=== PATIENT | female | born 1950 | race Caucasian/White ===

== ENCOUNTER 2020-01-09 16:42 | Inpatient (IN) | payer MEDICARE, OTHER ==
[~2020-01-09] VITALS: Ht 162.6 cm; Wt 52.6 kg
[2020-01-09] MEDS ORDERED: Tetanus/Diptheria/Pertussis IM ONE (16:45)
[2020-01-09] MEDS ORDERED: Acetaminophen 500mg (ES) tab ORAL ONE (16:45)
--- NOTE | 2020-01-09 16:56 | Emergency Room Report ---
History of Present Illness General Chief Complaint: Multiple Trauma/Fall Source: Patient, EMS Present Illness HPI 70-year-old female history of hypertension history of thoracic surgery presents with mechanical fall patient was stepping onto an uber she fell backwards, hit her head, no LOC no nausea no vomiting endorses head pain no aggravating relieving factors severity is mild, constant patient presents for evaluation during the interview patient also endorsed some shortness of breath and chest pain that has been chronic however she states it was acutely worsened by this event no dyspnea on exertion patient presents for evaluation and treatment She currently states that her shortness of breath and chest pain have significantly improved since the incident Allergies: Coded Allergies: No Known Allergies (Unverified , 01/09/20) COVID-19 Screening Contact w/high risk pt: No Recent Travel to affected area: No Experienced COVID-19 symptoms?: No Patient History Past Medical History: see triage record Reviewed Nursing Documentation: PMH: Agreed; PSxH: Agreed Nursing Documentation-PMH Past Medical History Deferred: Pt Cognitively Impaired Past Medical History: No History, Except For Hx Cardiac Problems: Yes Hx Hypertension: Yes Hx Diabetes: Yes Review of Systems All Other Systems: negative except mentioned in HPI Physical Exam Vital Signs Date Time Temp Pulse Resp B/P (MAP) Pulse Ox O2 Delivery O2 Flow Rate FiO2 01/09/20 16:44 98.4 59 18 179/82 (114) 98 Room Air Sp02 EP Interpretation: reviewed, normal General Appearance: well appearing, no apparent distress, alert Head: normocephalic, other - Hematoma left posterior head Eyes: bilateral eye PERRL, bilateral eye EOMI ENT: uvula midline, moist mucus membranes Neck: supple, thyroid normal, no bony tend, supple/symm/no masses Respiratory: no respiratory distress, no retraction, no accessory muscle use, decreased breath sounds, rhonchi Cardiovascular #1: normal peripheral pulses, regular rate, rhythm, no edema, no gallop, no murmur Gastrointestinal: non tender, soft, no guarding, no rebound Musculoskeletal: normal inspection Neurologic: alert, oriented x3 Psychiatric: mood/affect normal Skin: no rash, warm/dry Medical Decision Making Diagnostic Impression: Primary Impression: Fall Qualified Codes: W19.XXXA - Unspecified fall, initial encounter Additional Impressions: SOB (shortness of breath) Suspected COVID-19 virus infection Pulmonary edema Qualified Codes: J81.0 - Acute pulmonary edema ER Course 70-year-old female presents with shortness of breath, mechanical fall will evaluate for brain bleed, additionally patient endorsed some shortness of breath , patient with rhonchorous breath sounds, patient found to have bilateral infiltrates, possible COVID, patient has currently no head bleed on CT Will admit patient for COVID rule out as well as management of possible pulmonary edema versus infiltrate versus COVID, ceftriaxone and azithromycin will be started to cover community-acquired pneumonia patient remained stable, additionally will start diuretics Patient admitted to Dr. Chong Rodriguez Laboratory Tests Test 01/09/20 17:02 01/09/20 18:00 White Blood Count 13.3 K/UL (4.8-10.8) H Red Blood Count 2.89 M/UL (4.20-5.40) L Hemoglobin 7.4 G/DL (12.0-16.0) L Hematocrit 26.5 % (37.0-47.0) L Mean Corpuscular Volume 92 FL (80-99) Mean Corpuscular Hemoglobin 25.8 PG (27.0-31.0) L Mean Corpuscular Hemoglobin Concent 28.0 G/DL (32.0-36.0) L Red Cell Distribution Width 18.1 % (11.6-14.8) H Platelet Count 501 K/UL (150-450) H Mean Platelet Volume 8.0 FL (6.5-10.1) Neutrophils (%) (Auto) % (45.0-75.0) Lymphocytes (%) (Auto) % (20.0-45.0) Monocytes (%) (Auto) % (1.0-10.0) Eosinophils (%) (Auto) % (0.0-3.0) Basophils (%) (Auto) % (0.0-2.0) Differential Total Cells Counted 100 Neutrophils % (Manual) 83 % (45-75) H Lymphocytes % (Manual) 5 % (20-45) L Monocytes % (Manual) 5 % (1-10) Eosinophils % (Manual) 7 % (0-3) H Basophils % (Manual) 0 % (0-2) Band Neutrophils 0 % (0-8) Nucleated Red Blood Cells 2 /100 WBC Platelet Estimate Increased H Platelet Morphology Normal Polychromasia 1+ Hypochromasia 2+ Anisocytosis 2+ Prothrombin Time 11.2 SEC (9.30-11.50) Prothrombin Time INR 1.1 (0.9-1.1) Activated Partial Thromboplast Time 26 SEC (23-33) Sodium Level 141 MMOL/L (136-145) Potassium Level 3.7 MMOL/L (3.5-5.1) Chloride Level 108 MMOL/L (98-107) H Carbon Dioxide Level 24 MMOL/L (21-32) Anion Gap 9 mmol/L (5-15) Blood Urea Nitrogen 7 mg/dL (7-18) Creatinine 0.8 MG/DL (0.55-1.30) Estimated Glomerular Filtration Rate > 60 mL/min (>60) Glucose Level 147 MG/DL (74-106) H Calcium Level 8.1 MG/DL (8.5-10.1) L Total Bilirubin 0.4 MG/DL (0.2-1.0) Aspartate Amino Transferase (AST) 27 U/L (15-37) Alanine Aminotransferase (ALT) 20 U/L (12-78) Alkaline Phosphatase 103 U/L (46-116) Troponin I 0.034 ng/mL (0.000-0.056) Total Protein 6.8 G/DL (6.4-8.2) Albumin 2.9 G/DL (3.4-5.0) L Globulin 3.9 g/dL Albumin/Globulin Ratio 0.7 (1.0-2.7) L Lactic Acid Level Pending EKG Diagnostic Results EKG Time: 16:51 EP Interpretation: A paced, rate 60, QTc 476, no acute escalations, normal axis Rhythm Strip Diag. Results Rhythm Strip Time: 16:58 EP Interpretation: yes Rate: 60 Rhythm: other - Atrial paced Chest X-Ray Diagnostic Results Chest X-Ray Diagnostic Results : Chest X-Ray Ordered: Yes # of Views/Limited/Complete: 1 View Indication: Shortness of Breath EP Interpretation: Yes Interpretation: other - Bilateral infiltrates Impression: Other - Bilateral infiltrates Electronically Signed by: Wu Fine MD Last Vital Signs Date Time Temp Pulse Resp B/P (MAP) Pulse Ox O2 Delivery O2 Flow Rate FiO2 01/09/20 16:44 98.4 59 18 179/82 (114) 98 Room Air Disposition: ADMITTED INPATIENT Condition: Serious Wu Fine MD January 09, 2020 16:56
[2020-01-09 17:00] VITALS: BP 179/82
[2020-01-09 17:26] LABS: HEMATOCRIT 26.5 % (37.0-47.0); HEMOGLOBIN 7.4 G/DL (12.0-16.0); MEAN CORPUSCULAR VOLUME 92 FL (80-99); PLATELET COUNT 501 K/UL (150-450); RED BLOOD COUNT 2.89 M/UL (4.20-5.40); RED CELL DISTRIBUTION WIDTH 18.1 % (11.6-14.8); WHITE BLOOD COUNT 13.3 K/UL (4.8-10.8)
[2020-01-09 17:36] LABS: ANION GAP 9 mmol/L (5-15); BLOOD UREA NITROGEN 7 mg/dL (7-18); CALCIUM 8.1 MG/DL (8.5-10.1); CARBON DIOXIDE 24 MMOL/L (21-32); CHLORIDE 108 MMOL/L (98-107); CREATININE 0.8 MG/DL (0.55-1.30); INR 1.1 (0.9-1.1); POTASSIUM 3.7 MMOL/L (3.5-5.1); SODIUM 141 MMOL/L (136-145)
[2020-01-09 17:41] LABS: ALANINE AMINOTRANSFERASE 20 U/L (12-78); ALBUMIN 2.9 G/DL (3.4-5.0); ALBUMIN/GLOBULIN RATIO 0.7 (1.0-2.7); ALKALINE PHOSPHATASE 103 U/L (46-116); ASPARTATE AMINO TRANSFERASE 27 U/L (15-37); BILIRUBIN,TOTAL 0.4 MG/DL (0.2-1.0)
[2020-01-09] MEDS ORDERED: Azithromycin 500 MG in NS 275 ML IV ONE (17:45)
[2020-01-09] MEDS ORDERED: cefTRIAXone 1 GM in NS 55 ML IVPB ONE (17:45)
--- NOTE | 2020-01-09 17:58 | Diagnostic Imaging Report ---
EXAM: CT Cervical Spine Without Intravenous Contrast CLINICAL HISTORY: PAIN TECHNIQUE: Axial computed tomography images of the cervical spine without intravenous contrast. CTDI is 3.9 mGy and DLP is 83.2 mGy-cm. One or more of the following dose reduction techniques were used: automated exposure control, adjustment of the mA and/or kV according to patient size, use of iterative reconstruction technique. COMPARISON: None FINDINGS: Bones: Normal alignment. No acute fracture or bony lesion. Disc spaces: No subluxation. Mild degenerative changes of the spine. Soft tissues: Surgical clips in the anterior neck at the thoracic inlet. Other: Atherosclerotic changes of the vasculature. Small bilateral pleural effusions. Patchy consolidations and ground-glass opacities partially visualized in the upper lungs. IMPRESSION: 1. No acute traumatic abnormality. 2. Small bilateral pleural effusions. Patchy consolidations and ground- glass opacities partially visualized in the upper lungs. Further evaluation could be performed with CT chest.
--- NOTE | 2020-01-09 18:00 | Diagnostic Imaging Report ---
EXAM: CT Head Without Intravenous Contrast CLINICAL HISTORY: FALL TECHNIQUE: Axial computed tomography images of the head/brain without intravenous contrast. CTDI is 53.4 mGy and DLP is 1038.3 mGy-cm. One or more of the following dose reduction techniques were used: automated exposure control, adjustment of the mA and/or kV according to patient size, use of iterative reconstruction technique. COMPARISON: None FINDINGS: Brain: No acute infarct or hemorrhage identified. No extra-axial fluid collection. No mass effect or midline shift. Scattered areas of hypoattenuation in the supratentorial white matter likely represent chronic small vessel ischemic changes. Encephalomalacia in the inferior right frontal lobe. Ventricles and sulci: Prominence of the ventricles and sulci is likely secondary to cerebral volume loss. Bones: Normal. No bony lesion or fracture. Subcutaneous tissues: Left parietal scalp hematoma. Sinuses: Mild mucosal thickening in the ethmoid air cells. Mastoid air cells: Normal. Orbits: Grossly unremarkable. Other: Atherosclerotic calcifications in the intracranial vasculature. IMPRESSION: 1. No acute intracranial abnormality. 2. Left parietal scalp hematoma. No acute fracture. 3. Chronic small vessel ischemic changes and cerebral volume loss. Encephalomalacia in the inferior right frontal lobe.
[2020-01-09 18:59] VITALS: BP 162/66
[2020-01-09 20:00] VITALS: BP 150/64
[2020-01-09] MEDS: Lisinopril 2.5mg tab ORAL SCH (22:33)
[2020-01-10] VITALS: BP 160/66
[2020-01-10 04:00] VITALS: BP 158/70
[2020-01-10 07:27] LABS: HEMATOCRIT 22.2 % (37.0-47.0); MEAN CORPUSCULAR VOLUME 86 FL (80-99); PLATELET COUNT 444 K/UL (150-450); RED BLOOD COUNT 2.59 M/UL (4.20-5.40); RED CELL DISTRIBUTION WIDTH 16.2 % (11.6-14.8); WHITE BLOOD COUNT 14.5 K/UL (4.8-10.8)
[2020-01-10 07:41] LABS: HEMOGLOBIN 6.9 G/DL (12.0-16.0)
[2020-01-10] MEDS: NovoLOG Insulin Flexpen SUBQ SCH ×3 (07:41→16:30)
[2020-01-10 07:47] LABS: ANION GAP 10 mmol/L (5-15); BLOOD UREA NITROGEN 11 mg/dL (7-18); CALCIUM 7.4 MG/DL (8.5-10.1); CARBON DIOXIDE 25 MMOL/L (21-32); CHLORIDE 108 MMOL/L (98-107); POTASSIUM 3.4 MMOL/L (3.5-5.1); SODIUM 143 MMOL/L (136-145)
[2020-01-10 08:00] VITALS: BP 171/79
[2020-01-10] MEDS: Lisinopril 2.5mg tab ORAL SCH (08:46)
[2020-01-10] MEDS ORDERED: Furosemide 40mg tab ORAL SCH (09:00)
[2020-01-10] MEDS ORDERED: NovoLOG Insulin Flexpen SUBQ SCH (11:30)
[2020-01-10 12:00] VITALS: BP 161/88
--- NOTE | 2020-01-10 13:00 | Cardiac Electrophysiology PN ---
Subjective Subjective [id number] Objective Last 24 Hour Vital Signs Date Time Temp Pulse Resp B/P (MAP) Pulse Ox O2 Delivery O2 Flow Rate FiO2 01/10/20 12:00 98.1 62 16 161/88 (112) 99 01/10/20 12:00 2.0 01/10/20 09:00 Nasal Cannula 2.0 01/10/20 08:46 171/79 01/10/20 08:00 98.2 67 16 171/79 (109) 100 01/10/20 08:00 59 01/10/20 04:30 2.0 01/10/20 04:07 97.6 01/10/20 04:00 99.1 62 18 158/70 (99) 97 01/10/20 04:00 71 01/10/20 00:00 97.6 66 18 160/66 (97) 96 01/10/20 00:00 69 01/09/20 22:33 150/64 01/09/20 22:15 Nasal Cannula 2.0 01/09/20 20:00 74 01/09/20 20:00 97.4 62 18 150/64 (92) 95 01/09/20 19:00 98.4 81 20 162/66 99 Room Air 01/09/20 18:59 98.4 20 162/66 99 Room Air 01/09/20 17:00 59 18 Room Air 01/09/20 17:00 98.4 18 179/82 98 Room Air 01/09/20 16:44 98.4 59 18 179/82 (114) 98 Room Air Intake and Output 01/09/20 01/10/20 18:59 06:59 Intake Total 800 ml Balance 800 ml Intake Oral 800 ml # Voids 2 Laboratory Tests Test 01/09/20 17:02 01/09/20 18:00 01/10/20 05:42 White Blood Count 13.3 K/UL (4.8-10.8) H 14.5 K/UL (4.8-10.8) H Red Blood Count 2.89 M/UL (4.20-5.40) L 2.59 M/UL (4.20-5.40) L Hemoglobin 7.4 G/DL (12.0-16.0) L 6.9 G/DL (12.0-16.0) *L Hematocrit 26.5 % (37.0-47.0) L 22.2 % (37.0-47.0) L Mean Corpuscular Volume 92 FL (80-99) 86 FL (80-99) Mean Corpuscular Hemoglobin 25.8 PG (27.0-31.0) L 26.5 PG (27.0-31.0) L Mean Corpuscular Hemoglobin Concent 28.0 G/DL (32.0-36.0) L 31.0 G/DL (32.0-36.0) L Red Cell Distribution Width 18.1 % (11.6-14.8) H 16.2 % (11.6-14.8) H Platelet Count 501 K/UL (150-450) H 444 K/UL (150-450) Mean Platelet Volume 8.0 FL (6.5-10.1) 6.4 FL (6.5-10.1) L Neutrophils (%) (Auto) % (45.0-75.0) % (45.0-75.0) Lymphocytes (%) (Auto) % (20.0-45.0) % (20.0-45.0) Monocytes (%) (Auto) % (1.0-10.0) % (1.0-10.0) Eosinophils (%) (Auto) % (0.0-3.0) % (0.0-3.0) Basophils (%) (Auto) % (0.0-2.0) % (0.0-2.0) Differential Total Cells Counted 100 Neutrophils % (Manual) 83 % (45-75) H Pending Lymphocytes % (Manual) 5 % (20-45) L Pending Monocytes % (Manual) 5 % (1-10) Eosinophils % (Manual) 7 % (0-3) H Basophils % (Manual) 0 % (0-2) Band Neutrophils 0 % (0-8) Nucleated Red Blood Cells 2 /100 WBC Platelet Estimate Increased H Pending Platelet Morphology Normal Pending Polychromasia 1+ Hypochromasia 2+ Anisocytosis 2+ Prothrombin Time 11.2 SEC (9.30-11.50) Prothromb Time International Ratio 1.1 (0.9-1.1) Activated Partial Thromboplast Time 26 SEC (23-33) Sodium Level 141 MMOL/L (136-145) 143 MMOL/L (136-145) Potassium Level 3.7 MMOL/L (3.5-5.1) 3.4 MMOL/L (3.5-5.1) L Chloride Level 108 MMOL/L (98-107) H 108 MMOL/L (98-107) H Carbon Dioxide Level 24 MMOL/L (21-32) 25 MMOL/L (21-32) Anion Gap 9 mmol/L (5-15) 10 mmol/L (5-15) Blood Urea Nitrogen 7 mg/dL (7-18) 11 mg/dL (7-18) Creatinine 0.8 MG/DL (0.55-1.30) 1.0 MG/DL (0.55-1.30) Estimat Glomerular Filtration Rate > 60 mL/min (>60) 54.7 mL/min (>60) Glucose Level 147 MG/DL (74-106) H 211 MG/DL (74-106) H Calcium Level 8.1 MG/DL (8.5-10.1) L 7.4 MG/DL (8.5-10.1) L Total Bilirubin 0.4 MG/DL (0.2-1.0) Aspartate Amino Transf (AST/SGOT) 27 U/L (15-37) Alanine Aminotransferase (ALT/SGPT) 20 U/L (12-78) Alkaline Phosphatase 103 U/L (46-116) Troponin I 0.034 ng/mL (0.000-0.056) 0.057 ng/mL (0.000-0.056) Pro-B-Type Natriuretic Peptide 14229 pg/mL (0-125) H 44435 pg/mL (0-125) H Total Protein 6.8 G/DL (6.4-8.2) Albumin 2.9 G/DL (3.4-5.0) L Globulin 3.9 g/dL Albumin/Globulin Ratio 0.7 (1.0-2.7) L Lactic Acid Level 1.60 mmol/L (0.4-2.0) Dylon Frederick MD January 10, 2020 13:00
--- NOTE | 2020-01-10 13:21 | Consultation ---
History of Present Illness General Date patient seen: January 10, 2020 Chief Complaint: Multiple Trauma/Fall Present Illness HPI 70 y/o F wtih hx of thoracic surgery, HTN, Dm2 presented to ED on 01/08 after mechanical fall; patient was stepping onto an uber and she fell backwards and hit her head. Did not had LOC, no nausea, vomiting. +Headache (mild, constant). Also endorsed some SOB and chest pain that has been chronic but it was acutely worsened by this event. Allergies: Coded Allergies: No Known Allergies (Unverified , 01/09/20) Medication History Unable to Obtain Active Prescriptions or Reported Meds Patient History Healthcare decision maker Resuscitation status Advanced Directive on File Patient History Narrative Pmhx: as above SHx: reviewed Fhx: non contributory Review of Systems All Other Systems: negative except mentioned in HPI Physical Exam Physical Exam Narrative General Appearance: well appearing, no apparent distress, alert Head: normocephalic, other - Hematoma left posterior head Eyes: bilateral eye PERRL, bilateral eye EOMI Neck: supple, thyroid normal, no bony tend, supple/symm/no masses Respiratory: no respiratory distress, no retraction, no accessory muscle use, decreased breath sounds, rhonchi Cardiovascular #1: normal peripheral pulses, regular rate, rhythm, no edema, no gallop, no murmur Gastrointestinal: non tender, soft, no guarding, no rebound Skin: no rash, warm/dry Last 24 Hour Vital Signs Date Time Temp Pulse Resp B/P (MAP) Pulse Ox O2 Delivery O2 Flow Rate FiO2 01/10/20 12:00 98.1 62 16 161/88 (112) 99 01/10/20 12:00 2.0 01/10/20 12:00 60 01/10/20 09:00 Nasal Cannula 2.0 01/10/20 08:46 171/79 01/10/20 08:00 98.2 67 16 171/79 (109) 100 01/10/20 08:00 59 01/10/20 04:30 2.0 01/10/20 04:07 97.6 01/10/20 04:00 99.1 62 18 158/70 (99) 97 01/10/20 04:00 71 01/10/20 00:00 97.6 66 18 160/66 (97) 96 01/10/20 00:00 69 01/09/20 22:33 150/64 01/09/20 22:15 Nasal Cannula 2.0 01/09/20 20:00 74 01/09/20 20:00 97.4 62 18 150/64 (92) 95 01/09/20 19:00 98.4 81 20 162/66 99 Room Air 01/09/20 18:59 98.4 20 162/66 99 Room Air 01/09/20 17:00 59 18 Room Air 01/09/20 17:00 98.4 18 179/82 98 Room Air 01/09/20 16:44 98.4 59 18 179/82 (114) 98 Room Air Intake and Output 01/09/20 01/10/20 19:00 07:00 Intake Total 800 ml Balance 800 ml Intake Oral 800 ml # Voids 2 Laboratory Tests Test 01/09/20 17:02 01/09/20 18:00 01/10/20 05:42 White Blood Count 13.3 K/UL (4.8-10.8) H 14.5 K/UL (4.8-10.8) H Red Blood Count 2.89 M/UL (4.20-5.40) L 2.59 M/UL (4.20-5.40) L Hemoglobin 7.4 G/DL (12.0-16.0) L 6.9 G/DL (12.0-16.0) *L Hematocrit 26.5 % (37.0-47.0) L 22.2 % (37.0-47.0) L Mean Corpuscular Volume 92 FL (80-99) 86 FL (80-99) Mean Corpuscular Hemoglobin 25.8 PG (27.0-31.0) L 26.5 PG (27.0-31.0) L Mean Corpuscular Hemoglobin Concent 28.0 G/DL (32.0-36.0) L 31.0 G/DL (32.0-36.0) L Red Cell Distribution Width 18.1 % (11.6-14.8) H 16.2 % (11.6-14.8) H Platelet Count 501 K/UL (150-450) H 444 K/UL (150-450) Mean Platelet Volume 8.0 FL (6.5-10.1) 6.4 FL (6.5-10.1) L Neutrophils (%) (Auto) % (45.0-75.0) % (45.0-75.0) Lymphocytes (%) (Auto) % (20.0-45.0) % (20.0-45.0) Monocytes (%) (Auto) % (1.0-10.0) % (1.0-10.0) Eosinophils (%) (Auto) % (0.0-3.0) % (0.0-3.0) Basophils (%) (Auto) % (0.0-2.0) % (0.0-2.0) Differential Total Cells Counted 100 Neutrophils % (Manual) 83 % (45-75) H Pending Lymphocytes % (Manual) 5 % (20-45) L Pending Monocytes % (Manual) 5 % (1-10) Eosinophils % (Manual) 7 % (0-3) H Basophils % (Manual) 0 % (0-2) Band Neutrophils 0 % (0-8) Nucleated Red Blood Cells 2 /100 WBC Platelet Estimate Increased H Pending Platelet Morphology Normal Pending Polychromasia 1+ Hypochromasia 2+ Anisocytosis 2+ Prothrombin Time 11.2 SEC (9.30-11.50) Prothromb Time International Ratio 1.1 (0.9-1.1) Activated Partial Thromboplast Time 26 SEC (23-33) Sodium Level 141 MMOL/L (136-145) 143 MMOL/L (136-145) Potassium Level 3.7 MMOL/L (3.5-5.1) 3.4 MMOL/L (3.5-5.1) L Chloride Level 108 MMOL/L (98-107) H 108 MMOL/L (98-107) H Carbon Dioxide Level 24 MMOL/L (21-32) 25 MMOL/L (21-32) Anion Gap 9 mmol/L (5-15) 10 mmol/L (5-15) Blood Urea Nitrogen 7 mg/dL (7-18) 11 mg/dL (7-18) Creatinine 0.8 MG/DL (0.55-1.30) 1.0 MG/DL (0.55-1.30) Estimat Glomerular Filtration Rate > 60 mL/min (>60) 54.7 mL/min (>60) Glucose Level 147 MG/DL (74-106) H 211 MG/DL (74-106) H Calcium Level 8.1 MG/DL (8.5-10.1) L 7.4 MG/DL (8.5-10.1) L Total Bilirubin 0.4 MG/DL (0.2-1.0) Aspartate Amino Transf (AST/SGOT) 27 U/L (15-37) Alanine Aminotransferase (ALT/SGPT) 20 U/L (12-78) Alkaline Phosphatase 103 U/L (46-116) Troponin I 0.034 ng/mL (0.000-0.056) 0.057 ng/mL (0.000-0.056) Pro-B-Type Natriuretic Peptide 21662 pg/mL (0-125) H 52520 pg/mL (0-125) H Total Protein 6.8 G/DL (6.4-8.2) Albumin 2.9 G/DL (3.4-5.0) L Globulin 3.9 g/dL Albumin/Globulin Ratio 0.7 (1.0-2.7) L Lactic Acid Level 1.60 mmol/L (0.4-2.0) Height (Feet): 5 Height (Inches): 4.00 Weight (Pounds): 116 Medications Current Medications Medications (Trade) Dose Ordered Sig/Breana Route PRN Reason Start Time Stop Time Status Last Admin Dose Admin Acetaminophen (Tylenol) 650 mg Q4H PRN ORAL Mild Pain (Pain Scale 1-3) 01/10/20 03:30 02/09/20 03:29 01/10/20 03:37 Ceftriaxone Sodium 1 gm/ Dextrose 55 ml @ 110 mls/hr Q24H IVPB 01/10/20 17:00 01/17/20 16:59 Dextrose (Dextrose 50%) 25 ml Q30M PRN IV Hypoglycemia 01/09/20 21:45 04/08/20 21:44 Dextrose (Dextrose 50%) 50 ml Q30M PRN IV Hypoglycemia 01/09/20 21:45 04/08/20 21:44 Furosemide (Lasix) 40 mg EVERY 12 HOURS IV 01/10/20 21:00 02/09/20 20:59 Heparin Sodium (Porcine) (Heparin 5000 units/ml) 5,000 units EVERY 12 HOURS SUBQ 01/10/20 21:00 6/27/20 20:59 Hydralazine HCl (Apresoline) 10 mg Q2H PRN IV htn 01/09/20 20:45 04/08/20 20:44 Insulin Aspart (NovoLOG) BEFORE MEALS AND HS SUBQ 01/10/20 06:30 04/09/20 06:29 01/10/20 11:30 Lisinopril (ZestriL) 10 mg BID@0900,2100 ORAL 01/10/20 21:00 02/08/20 21:59 Potassium Chloride (K-Dur) 20 meq TWICE A DAY ORAL 01/10/20 18:00 04/09/20 17:59 Assessment/Plan Assessment/Plan: Abx: Ceftriaxone 01/08- Azithromycin x1 01/08 Assessment: sp mechanical fall Left parietal scalp hematoma. -Head CT: No acute intracranial abnormality. Left parietal scalp hematoma. No acute fracture. Chronic small vessel ischemic changes and cerebral volume loss. Encephalomalacia in the inferior right frontal lobe. -Cervical spine CT: No acute traumatic abnormality. Small bilateral pleural effusions. Patchy consolidations and ground glass opacities partially visualized in the upper lungs. Further evaluation could be performed with CT chest. Probable PNA ( patchy consolidations and GGO in upper lungs)- r/o COVID19 Afebrile Mild leukocytosis, increased Anemia hx of thoracic surgery HTN Dm2 Plan: -Continue empiric Ceftriaxone and Azithromycin #2 for now -f/u cx -Monitor CBC/CMP, temperatures -u/a w/ reflex, Bcx -f/u CXR -COVID isolation and testing Thank you for consulting [facility]. Will continue to follow along wiht you. Belem Foster M.D. January 10, 2020 13:21
[2020-01-10 16:00] VITALS: BP 154/70
[2020-01-10] MEDS ORDERED: cefTRIAXone 1 GM in D5W 55 ML IVPB SCH (17:00)
[2020-01-10] MEDS ORDERED: Azithromycin 250mg tab ORAL SCH (17:00)
--- NOTE | 2020-01-10 18:45 | Consultation ---
DATE OF CONSULTATION: 01/10/2020 PULMONARY CONSULTATION CONSULTING PHYSICIAN: Ramon Brambila MD. REFERRING PHYSICIAN: Chong Rodriguez DO. REASON FOR CONSULT: Pulmonary edema. HISTORY OF PRESENT ILLNESS: This is a 70-year-old female who is admitted to the hospital overnight with complaints of shortness of breath. Patient was seen in the emergency room yesterday with complaints of shortness of breath. Patient states that she has a history of hypertension as well as previous plastic surgery. She had a mechanical fall and she fell backwards, hit her head, but there was no loss of consciousness. Patient has been evaluated and worked up and is admitted to the hospital at this point in time. PAST HISTORY: Cognitive impairment, hypertension, previous thoracic surgery, diabetes mellitus. REVIEW OF SYSTEMS: Unreliable. SURGERIES: Plastic surgery. PHYSICAL EXAMINATION: GENERAL: Reveals a 70-year-old female. HEENT: Unremarkable. CHEST: Shows decreased breath sounds bilaterally with normal heart sounds. ABDOMEN: Soft. EXTREMITIES: There is no edema. VITAL SIGNS: Blood pressure 170/70, heart rate 58, respirations 18, O2 saturation 97% on 2 L of oxygen. She is afebrile. LABORATORY DATA: Lab testing shows hemoglobin 7.4, now down to 6.9, white count 14,000, platelet count is normal. Chemistries are notable for potassium 3.4 and a glucose of 211. Troponin 0.05. BNP is elevated. Coags are negative. IMAGING STUDIES: Head CT and cervical spine CT were done, which were essentially negative. IMPRESSION: 1. Status post fall. 2. Diabetes mellitus. 3. Hypertension. 4. History of previous thoracic surgery. DISCUSSION: Her x-ray chest shows evidence of previous sternotomy. 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 There is also marked bilateral pulmonary infiltrates suspicious for either pulmonary edema or a pneumonic process. I am concerned about the possibility of COVID-19. She needs to be placed in respiratory isolation. We will continue current medications. Cardiology consult will be appreciated. She needs management of diabetes with Accu-Cheks as well as diuresis. We will follow carefully. Ramon Brambila M.D. DR: JAMILA/DEREK JOB#: [id number] CC:
--- NOTE | 2020-01-10 18:45 | History and Physical Report ---
DATE OF ADMISSION: 01/09/2020 DATE AND TIME SEEN: On 01/10/2020 at 9 a.m. CONSULTANTS: 1. Ramon Brambila MD. 2. Elan Quinones MD. 3. Dylon Frederick MD. 4. Dr. Willoughby. 5. Jarek Mcmullen MD. CHIEF COMPLAINT: CHF, shortness of breath, rule out COVID, severe anemia. BRIEF HISTORY: This is a 70-year-old female, who lives at home, presented with the above-mentioned diagnoses, admitted to telemetry for further care. Currently, O2 NC, calm, sleeping in bed, not talking much. REVIEW OF SYSTEMS: Unavailable. PAST MEDICAL HISTORY: Includes CHF, diabetes, hypertension. PAST SURGICAL HISTORY: Unknown. ALLERGIES: Denies. MEDICATIONS: Include ceftriaxone, furosemide, insulin, Tylenol, lisinopril, hydralazine, and azithromycin. SOCIAL HISTORY: Unable to obtain secondary to the patient's condition. PHYSICAL EXAMINATION: GENERAL: O2 NC, sleeping in bed, not talking much. Lethargic, sleepy. VITAL SIGNS: Temperature is 98, pulse 67, respirations 16, blood pressure 171/79. HEENT: Normocephalic and atraumatic. NECK: Trachea midline. CARDIOVASCULAR: No peripheral edema. PULMONARY: O2 NC, slight shortness of breath. ABDOMEN: No apparent wound. EXTREMITIES: Show no cyanosis or clubbing. LABORATORY AND DIAGNOSTIC DATA: Labs at this time show white count 14, hemoglobin 6.9, hematocrit 22, platelets 444,000. Potassium 3.4, chloride 108, glucose 211. INR is 1.1. ASSESSMENT: CHF, rule out COVID, shortness of breath, hypertension, diabetes, edema, and anemia. PLAN: O2 and pulmonary treatment. Antibiotics per Infectious Disease. Blood pressure and blood sugar control. Dietary followup. Transfuse p.r.n. CBC and BMP in the morning. Chong Rodriguez D.O. DR: Brad JOB#: [id number] CC:
--- NOTE | 2020-01-10 18:59 | Consultation ---
DATE OF CONSULTATION: 01/10/2020 CONSULTING PHYSICIAN: Jarek Mcmullen MD. CHIEF COMPLAINT: Anemia. HISTORY OF PRESENT ILLNESS: This is a 70-year-old female admitted to the hospital after a mechanical fall. Patient also complained of some chest pain, some shortness of breath. She was found to be profoundly anemic. Hemoglobin down to 6.9 and GI consultation requested for further evaluation. According to patient, there was no obvious GI bleeding. No abdominal pain. No nausea. No vomiting. No dysphagia. No odynophagia. No prior history of endoscopy. No colonoscopy. PAST MEDICAL HISTORY: 1. History of hypertension. 2. History of pacemaker placement. 3. Arthritis. 4. Diabetes. 5. Anemia. PAST SURGICAL HISTORY: Left hip surgery. ALLERGIES: No known drug allergies. MEDICATIONS: Please see medication reconciliation list. SOCIAL HISTORY: The patient denies any tobacco, alcohol, or drug abuse. FAMILY HISTORY: Noncontributory. REVIEW OF SYSTEMS: A 10-point review of systems was performed and pertinent positives in HPI. PHYSICAL EXAMINATION: GENERAL: A well-developed female. VITAL SIGNS: Temperature 98.2, pulse 67, respirations 16, blood pressure is 171/79. HEENT: Normocephalic, atraumatic. Pale conjunctivae. NECK: Supple. No evidence of obvious lymphadenopathy. CARDIOVASCULAR: Regular rate and rhythm. Plus S1 and S2. Pacemaker in place. LUNGS: Decreased breath sounds bilaterally based on the supine exam. ABDOMEN: Soft, nontender. No rebound. No guarding. No peritoneal sign. EXTREMITIES: No cyanosis, no clubbing, no edema. NEUROLOGIC: Nonfocal. LABORATORY DATA: White count is 14,000, hemoglobin 6.9, hematocrit 22, platelet count is 444. Sodium 143, potassium 3.4, BUN is 11, creatinine is 1.0. Troponin mildly elevated at 0.057. BNP elevated at 15,198. ASSESSMENT: This is a 70-year-old female admitted to the hospital status post fall, was found to be profoundly anemic. Also complained of chest pain and shortness of breath. PLAN: Transfuse 1 unit of packed RBC today. Anemia workup ordered. Stool OB ordered. CEA ordered. Patient currently needs to rule out NM given elevated troponin, history of cardiac history, and chest pain. Also needs to be ruled out of COVID and can be taken off isolation. Explained the endoscopy and colonoscopy to the patient, she agreed. We will plan when she is more stable and off of isolation. Jarek Mcmullen M.D. DR: DEVON JOB#: [id number] CC:
[2020-01-10] MEDS ORDERED: Heparin 5000 units/ml inj SUBQ SCH (21:00)
[2020-01-10] MEDS ORDERED: Lisinopril 10mg tab ORAL SCH (21:00)
--- NOTE | 2020-01-10 22:59 | Consultation ---
DATE OF CONSULTATION: 01/10/2020 CARDIOLOGY CONSULTATION CONSULTING PHYSICIAN: Dylon Frederick MD. REFERRING PHYSICIAN: Chong Rodriguez DO. REASON FOR CONSULTATION: Management of congestive heart failure. HISTORY OF PRESENT ILLNESS: The patient is a 70-year-old lady history of hypertension and history of thoracic surgery, presented after a mechanical fall when she was stepping when she fell backwards and hit her head. Patient did not have loss of consciousness with nausea or vomiting. Patient however also complained of some shortness of breath and chest pain. Patient came to the emergency room and was admitted and a Cardiology consultation was obtained for further evaluation. REVIEW OF SYSTEMS: Negative other than what was mentioned in the history of present illness. PAST MEDICAL HISTORY: 1. Hypertension. 2. Diabetes. 3. History of congestive heart failure. FAMILY HISTORY: Noncontributory. SOCIAL HISTORY: Does not smoke or drink alcohol. PHYSICAL EXAMINATION: VITAL SIGNS: Show blood pressure was 171/79, pulse 62, respirations 16, she is afebrile. HEAD AND NECK: Shows no JVD. LUNGS: Decreased breath sounds. CARDIOVASCULAR: Shows regular S1 and S2 with no gallop. ABDOMEN: Soft. EXTREMITIES: No pitting edema. LABORATORY AND DIAGNOSTIC DATA: Labs show white count of 14.5, hemoglobin of 6.9, hematocrit 22.2, and platelet count is 444. Sodium is 142, potassium 3.4, BUN of 11, creatinine 1. Troponin is 0.034, second one is 0.057. ProBNP is 15,000. ASSESSMENT AND PLAN: 1. Congestive heart failure, likely diastolic dysfunction. Echocardiogram showed EF of 50%. Continue Lasix 40 mg IV b.i.d. and replace the potassium as well. 2. Hypertension, on lisinopril 5 mg b.i.d. as well as IV Lasix and p.r.n. hydralazine. 3. Diabetes, on insulin. 4. Severe anemia, etiology is not clear at this time. evaluation and blood transfusion. 5. Shortness of breath, rule out COVID-19 infection. 6. Bilateral infiltrates. Again, patient will be ruled out COVID-19. Thank you very much for allowing me to participate in the care of this patient. Please do not hesitate to contact me for any questions regarding my evaluation. Dylon Frederick M.D. DR: HOWARD JOB#: [id number] CC:
--- NOTE | 2020-01-11 12:44 | Discharge Summary ---
Discharge Summary Discharge Summary _ DATE OF ADMISSION: 01/09/2020 DATE OF DISCHARGE: 01/10/2020 Patient left AGAINST MEDICAL ADVICE REASON FOR ADMISSION: 70 years old female with past medical history hypertension, thoracic surgery, presented after mechanical fall. Patient was stepping onto an [employer] car , when she fell backwards. Patient hit her head. No loss of consciousness. No nausea or vomiting. No headache. Patient subsequently was presented for evaluation. Patient also reported some shortness of breath with associated chest pain , which had been chronic, but worsened due to recent events. No dyspnea on exertion. Upon evaluation blood pressure was 179/82. Patient was afebrile Pulse oximetry was stable on room air. Laboratory work-up revealed leukocytosis WBC 13.3, anemia - with hemoglobin 7.4 hematocrit 26.5. Stable electrolytes and renal parameters. Glucose 147. Stable LFT. Troponin 0.034. Pro BNP 13545. EKG revealed AV pacing with rate of 60. Stable LFT. Lactic acid 1.6. CT of the head revealed no acute intracranial pathology. Left parietal scalp hematoma. No acute fracture. Chronic small vessel ischemic changes and cerebral volume loss. Encephalomalacia in the inferior right frontal lobe. CT scan of the cervical spine revealed no acute traumatic abnormality. Small bilateral pleural effusion. Patchy consolidation and ground-glass opacity , partially visualized in the upper lungs. In emergency department patient was swabbed for COVID-19 and admitted to isolation room to telemetry floor for further management. CONSULTANTS: gas load dispatcher Dr. Markham pulmonary Dr. Brambila ID specialist Dr. Foster [facility] COURSE: Patient admitted to telemetry floor. Patient was kept in isolation. Echocardiogram demonstrated estimated left ventricular ejection fraction 50%. Mildly depressed systolic function and wall motion to the extent visualized. No evidence of pericardial effusion. Pacemaker in right-sided chambers noted. IVC dilated with a slight physiological collapse, suggestive of increased RA pressure. Mild to moderate mitral regurgitation. Elevated left atrial pressure grade 2. Moderate tricuspid regurgitation. Right ventricular systolic pressure of 76 consistent with severe pulmonary hypertension. Patient started on diuresis with close monitoring of volumes and cardiorenal parameters. Potassium was replaced. Blood pressure was managed with LOVE inhibitor and Lasix. Hydralazine was on board as needed for blood pressure spikes. Blood sugar was managed with sliding scale of insulin. Supplemental oxygen provided and titrated to keep pulse oximetry above 92%. Patient started on empiric antibiotic as per ID specialist recommendation. Blood cultures were negative. SARS- CoV- 2 by PCR from 01/08 came back not detected. DVT prophylaxis provided. Blood sugar was managed with sliding scale of insulin. Fall precautions maintained. Patient undergone transfusion of 1 unit of packed red blood cells. Patient decided to leave AGAINST MEDICAL ADVICE on 01/09. The risks and consequences of signing AGAINST MEDICAL ADVICE were discussed with patient in detail. Patient verbalized understanding, nevertheless signed AMA form and left. FINAL DIAGNOSES: Status post mechanical fall Suspected COVID-19 -was ruled out Congestive heart failure with likely diastolic dysfunction Probable pneumonia Mild leukocytosis Hypertension Diabetes mellitus Severe anemia History of prior thoracic surgery Left parietal scalp hematoma I have been assigned to dictate discharge summary for this account. I was not involved in the patient's management. Darya Cardona NP January 11, 2020 12:44
--- NOTE | 2020-01-12 16:30 | Diagnostic Imaging Report ---
Procedure: XRAY Chest 1v Reason for study: Reason For Exam: SOB Comparison films: 01/09/2020. FINDINGS: Pacer remains in place. Vascularity is normal. Bilateral alveolar infiltrates unchanged. Cardiac and mediastinal silhouette are within normal limits. Small effusions unchanged. The bony thorax appear unremarkable. IMPRESSION: No change bilateral infiltrates.
--- NOTE | 2020-01-12 16:30 | Diagnostic Imaging Report ---
Procedure: XRAY Chest 1v Reason for study: Reason For Exam: CP Comparison films: None. FINDINGS: Pacer noted in the left upper chest. Patient is status post CABG. Bilateral infiltrates noted. Cardiac and mediastinal silhouette are within normal limits. There may be bilateral trace effusions. The bony thorax appear unremarkable. IMPRESSION: Bilateral infiltrates and trace effusions.
== END 2020-01-10 20:00 | disposition left against medical advice (07) | DRG 291 ==
LOC: EDBD 16:42 → EMR 17:18 → 2E 17:32 → EDBEDREQ 18:43
PROC: 30233N1 Transfusion of Nonautologous Red Blood Cells into Peripheral Vein, Percutaneous Approach (ICD-10-PCS; principal; 2020-01-10)
DX: I11.0 Hypertensive heart disease with heart failure (principal); J18.9 Pneumonia, unspecified organism; S00.03XA Contusion of scalp, initial encounter; I50.30 Unspecified diastolic (congestive) heart failure; W19.XXXA Unspecified fall, initial encounter; E11.9 Type 2 diabetes mellitus without complications; Z79.4 Long term (current) use of insulin; I34.0 Nonrheumatic mitral (valve) insufficiency; I36.1 Nonrheumatic tricuspid (valve) insufficiency; I27.20 Pulmonary hypertension, unspecified; D64.9 Anemia, unspecified; Z95.0 Presence of cardiac pacemaker; M19.90 Unspecified osteoarthritis, unspecified site; Z20.828 Contact with and (suspected) exposure to other viral communicable diseases
CPT/HCPCS: 36415; 70450; 71045; 72125; 80048; 80053; 82962; 83605; 83880; 84484; 85007; 85025; 85379; 85610; 85730; 86850; 86900; 86901; 86920; 87040; 87635; 90471; 90715; 93005; 93306; 96365; 96368; 96375; 99285; J1815; J8499

== ENCOUNTER 2020-03-03 06:14 | Inpatient (IN) | payer MEDICARE, OTHER ==
[2020-03-03] VITALS (8 sets, daily range): BP systolic 145–179; BP diastolic 53–94
[~2020-03-03] VITALS: Ht 157.5 cm; Wt 45.6 kg
--- NOTE | 2020-03-03 06:26 | NUR ---
ED Nurse Note: Patient EZEQUIEL RA26 from [facility] for hypoglycemia. Per EMS, pt BS was 31, D10 1 ampule was given bellhop captain. BS at triage 149. Pt is pale and lethargic. AAOx1, able to answer questions. No SOB, on room air. Pt placed on security monitor.
[2020-03-03 06:58] LABS: HEMATOCRIT 23.4 % (37.0-47.0); MEAN CORPUSCULAR VOLUME 84 FL (80-99); PLATELET COUNT 348 K/UL (150-450); RED BLOOD COUNT 2.78 M/UL (4.20-5.40); RED CELL DISTRIBUTION WIDTH 18.6 % (11.6-14.8); WHITE BLOOD COUNT 10.4 K/UL (4.8-10.8)
[2020-03-03 07:01] LABS: HEMOGLOBIN 6.8 G/DL (12.0-16.0)
--- NOTE | 2020-03-03 07:14 | NUR ---
HAND-OFF: Report given to Ramses RN.
--- NOTE | 2020-03-03 07:15 | NUR ---
ED Nurse Note: Report received from HYACINTH BENJAMIN
[2020-03-03 07:16] LABS: ANION GAP 13 mmol/L (5-15); BLOOD UREA NITROGEN 18 mg/dL (7-18); CALCIUM 8.4 MG/DL (8.5-10.1); CARBON DIOXIDE 21 MMOL/L (21-32); CHLORIDE 106 MMOL/L (98-107); POTASSIUM 3.2 MMOL/L (3.5-5.1); SODIUM 139 MMOL/L (136-145)
[2020-03-03 07:20] LABS: ALANINE AMINOTRANSFERASE 15 U/L (12-78); ALBUMIN 3.4 G/DL (3.4-5.0); ALKALINE PHOSPHATASE 74 U/L (46-116); ASPARTATE AMINO TRANSFERASE 27 U/L (15-37); BILIRUBIN,TOTAL 0.4 MG/DL (0.2-1.0)
[2020-03-03 07:23] LABS: APPEARANCE,URINE CLEAR; BILIRUBIN, URINE NEGATIVE (NEGATIVE); COLOR,URINE PALE YELLOW; GLUCOSE, URINE (UA) NEGATIVE (NEGATIVE); KETONES,URINE 2+ (NEGATIVE); LEUKOCYTE ESTERASE ,URINE 1+ (NEGATIVE); NITRITE,URINE NEGATIVE (NEGATIVE); PH,URINE 5 (4.5-8.0); PROTEIN,URINE 2+ (NEGATIVE); UROBILINOGEN,URINE NORMAL MG/DL (0.0-1.0)
--- NOTE | 2020-03-03 07:59 | Emergency Room Report ---
History of Present Illness General Chief Complaint: Altered Level of Consciousness Source: Patient, EMS Present Illness HPI 70-year-old female presents for altered mental status. Found at her boarding care by EMS. Accu-Chek 31. Given D10. Accu-Chek improved. Patient more awake. She is a diabetic. States she feels cold. Does not know what medication she takes. Denies fevers chills. Denies cough. Denies chest pain or shortness of breath. No other aggravating relieving factors. Denies any other associated symptoms Allergies: Coded Allergies: No Known Allergies (Unverified , 01/09/20) COVID-19 Screening Contact w/high risk pt: No Recent Travel to affected area: No Experienced COVID-19 symptoms?: No COVID-19 symptoms experienced: Shortness of Breath, Cough COVID-19 Testing performed DATA ASSISTANT: No Patient History Past Medical History: DM, HTN Past Surgical History: pacemaker Pertinent Family History: none Social History: Denies: smoking, alcohol use, drug use Now: No Immunizations: UTD Reviewed Nursing Documentation: PMH: Agreed; PSxH: Agreed Nursing Documentation-PMH Hx Cardiac Problems: Yes Hx Hypertension: Yes Hx Pacemaker: Yes Hx Diabetes: Yes Hx Cancer: No Hx Gastrointestinal Problems: No Hx Neurological Problems: No Review of Systems All Other Systems: negative except mentioned in HPI Physical Exam Vital Signs Date Time Temp Pulse Resp B/P (MAP) Pulse Ox O2 Delivery O2 Flow Rate FiO2 03/03/20 06:23 79 19 154/53 (86) 100 Room Air Sp02 EP Interpretation: reviewed, normal General Appearance: no apparent distress, alert, GCS 15, non-toxic Head: normocephalic, atraumatic Eyes: bilateral eye normal inspection, bilateral eye PERRL ENT: hearing grossly normal, normal pharynx, no angioedema, normal voice Neck: full range of motion, supple/symm/no masses Respiratory: chest non-tender, lungs clear, normal breath sounds, speaking full sentences Cardiovascular #1: regular rate, rhythm, no edema Cardiovascular #2: 2+ carotid (R), 2+ carotid (L), 2+ radial (R), 2+ radial (L) , 2+ dorsalis pedis (R), 2+ dorsalis pedis (L) Gastrointestinal: normal bowel sounds, non tender, soft, non-distended, no guarding, no rebound Rectal: deferred Genitourinary: normal inspection, no CVA tenderness Musculoskeletal: back normal, normal range of motion, gait/station normal, non- tender Neurologic: alert, motor strength/tone normal, oriented x3, sensory intact, responsive, speech normal Psychiatric: judgement/insight normal, memory normal, mood/affect normal, no suicidal/homicidal ideation Reflexes: 3+ bicep (R), 3+ bicep (L), 3+ tricep (R), 3+ tricep (L), 3+ knee (R) , 3+ knee (L) Skin: other - Nursing notes Lymphatic: no adenopathy Medical Decision Making Diagnostic Impression: Primary Impression: Hypoglycemia Additional Impressions: Anemia Qualified Codes: D64.9 - Anemia, unspecified Pneumonia Qualified Codes: J18.9 - Pneumonia, unspecified organism ER Course Hospital Course 70-year-old female presenting to ED with generalized weakness, low FS in field Differential diagnoses include: dehyration, sepsis, hypoglycemia Clinical course Patient placed on stretcher. On registered medical assistant. After initial history and physical I ordered labs, EKG, CXR, IV fluids Labs-glucose 157, electrolytes ok, no leukocytosis, hb/hct 6.8/23.4, UA negative EKG - aflutter, some PVCS, paced no acute ischemic changes intepreted by me CXR - sternotomy wires, pacemaker, mild opacities seen on prior CXR Patient given antibiotics. PRBCs ordered. Case discussed with Dr. Rodriguez and he agreed to accept the patient to his service for further care and support i. I feel this is a highly complex case requiring extensive working including EKG/Rhythm strip, Xray/CT/US, Blood/urine lab work, repeat exams while in ED, and administration of strong opiates/narcotics for pain control, admission to hospital or close patient follow up. diagnosis - hypoglycemia, anemia, pneumonia admitted to telemetry in serious condition Labs Test 03/03/20 06:31 03/03/20 06:52 03/03/20 06:55 White Blood Count 10.4 K/UL (4.8-10.8) Red Blood Count 2.78 M/UL (4.20-5.40) Hemoglobin 6.8 G/DL (12.0-16.0) Hematocrit 23.4 % (37.0-47.0) Mean Corpuscular Volume 84 FL (80-99) Mean Corpuscular Hemoglobin 24.5 PG (27.0-31.0) Mean Corpuscular Hemoglobin Concent 29.0 G/DL (32.0-36.0) Red Cell Distribution Width 18.6 % (11.6-14.8) Platelet Count 348 K/UL (150-450) Mean Platelet Volume 7.4 FL (6.5-10.1) Neutrophils (%) (Auto) % (45.0-75.0) Lymphocytes (%) (Auto) % (20.0-45.0) Monocytes (%) (Auto) % (1.0-10.0) Eosinophils (%) (Auto) % (0.0-3.0) Basophils (%) (Auto) % (0.0-2.0) Differential Total Cells Counted 100 Neutrophils % (Manual) 87 % (45-75) Lymphocytes % (Manual) 10 % (20-45) Monocytes % (Manual) 3 % (1-10) Eosinophils % (Manual) 0 % (0-3) Basophils % (Manual) 0 % (0-2) Band Neutrophils 0 % (0-8) Platelet Estimate Adequate Platelet Morphology Normal Polychromasia 1+ Hypochromasia 2+ Anisocytosis 1+ Sodium Level 139 MMOL/L (136-145) Potassium Level 3.2 MMOL/L (3.5-5.1) Chloride Level 106 MMOL/L (98-107) Carbon Dioxide Level 21 MMOL/L (21-32) Anion Gap 13 mmol/L (5-15) Blood Urea Nitrogen 18 mg/dL (7-18) Creatinine 1.0 MG/DL (0.55-1.30) Estimat Glomerular Filtration Rate 54.7 mL/min (>60) Glucose Level 157 MG/DL (74-106) Calcium Level 8.4 MG/DL (8.5-10.1) Total Bilirubin 0.4 MG/DL (0.2-1.0) Aspartate Amino Transf (AST/SGOT) 27 U/L (15-37) Alanine Aminotransferase (ALT/SGPT) 15 U/L (12-78) Alkaline Phosphatase 74 U/L (46-116) Total Protein 6.9 G/DL (6.4-8.2) Albumin 3.4 G/DL (3.4-5.0) Globulin 3.5 g/dL Albumin/Globulin Ratio 1.0 (1.0-2.7) Lactic Acid Level 1.30 mmol/L (0.4-2.0) Urine Color Pale yellow Urine Appearance Clear Urine pH 5 (4.5-8.0) Urine Specific Reading 1.020 (1.005-1.035) Urine Protein 2+ (NEGATIVE) Urine Glucose (UA) Negative (NEGATIVE) Urine Ketones 2+ (NEGATIVE) Urine Blood Negative (NEGATIVE) Urine Nitrite Negative (NEGATIVE) Urine Bilirubin Negative (NEGATIVE) Urine Urobilinogen Normal MG/DL (0.0-1.0) Urine Leukocyte Esterase 1+ (NEGATIVE) Urine RBC 0-2 /HPF (0 - 2) Urine WBC 0-2 /HPF (0 - 2) Urine Squamous Epithelial Cells Occasional /LPF Urine Bacteria Occasional /HPF (NONE) EKG Diagnostic Results Rate: normal Rhythm: other - aflutter ST Segments: other - PVCs ASA given to the pt in ED: No Rhythm Strip Diag. Results EP Interpretation: yes Rhythm: no ectopy Chest X-Ray Diagnostic Results Chest X-Ray Diagnostic Results : Chest X-Ray Ordered: Yes # of Views/Limited/Complete: 1 View Indication: Other EP Interpretation: Yes Interpretation: no pneumothorax, other - sternotomy, pacemaker, bialteral opacities Impression: Other - pneumonia Electronically Signed by: Electronically signed by Barrie Mullins MD Last Vital Signs Date Time Temp Pulse Resp B/P (MAP) Pulse Ox O2 Delivery O2 Flow Rate FiO2 7/5/20 06:26 79 19 154/53 100 Room Air Status: improved Disposition: ADMITTED INPATIENT Condition: Serious Referrals: NON PHYSICIAN (PCP) Barrie Mullins MD Mar 03, 2020 07:59
--- NOTE | 2020-03-03 08:00 | Diagnostic Imaging Report ---
EXAM: XR Chest, 1 View CLINICAL HISTORY: Altered mental status. TECHNIQUE: Frontal view of the chest. COMPARISON: 01/10/20 FINDINGS: Lungs: There is mild pulmonary edema. Faint airspace opacities within the upper lobes likely residual from prior multifocal infectious process. Pleural space: No evidence of pneumothorax. Probable small bilateral pleural effusions. Heart: Mild cardiac megaly. Cardiac pacer hardware again seen with leads in the right atrium and right ventricle. Mediastinum: No mediastinal widening or shift. Bones/joints: No acute osseous abnormality. Sternotomy wires are intact. IMPRESSION: Mild pulmonary edema and probable small bilateral pleural effusions. Findings likely associated with congestive heart failure or hypervolemia. Mild residual upper lobe airspace opacities from prior pneumonia.
--- NOTE | 2020-03-03 09:00 | NUR ---
ED Nurse Note: Covid test done and sent
[2020-03-03] MEDS ORDERED: Pantoprazole Inj IVP ONE (09:30)
--- NOTE | 2020-03-03 09:45 | NUR ---
ED Nurse Note: 1st unit of PRBC hooked and started. Pre transfusion vitals documented
--- NOTE | 2020-03-03 10:00 | NUR ---
ED Nurse Note: No pre transfusion reaction noted. Regulated blood as ordered
--- NOTE | 2020-03-03 12:10 | NUR ---
ED Nurse Note: 1st unit of PRBC consumed at 1200, no transfusion reaction noted 2nd unit of PRBC hooked and started at 1210.
--- NOTE | 2020-03-03 12:55 | NUR ---
Nurse Note: Report given to SOURAV Andrews for continuity of care. Pt infusing pRBC and D10 NS at 50cc/hr.
[2020-03-03] MEDS ORDERED: Dextrose 10%/0.9% SOD CHL 1,000 ML IV SCH (13:00)
--- NOTE | 2020-03-03 13:50 | NUR ---
TRANSFER TO FLOOR: Patient transferred to TELE 2E at rm 218-2 via gurney with hall monitor with RN and WORKERS COMPENSATION ADJUSTER. Belongings checked and endorsed to RN. Transported patient safely on bed and endorsed to RN on duty.
--- NOTE | 2020-03-03 13:51 | NUR ---
NURSE NOTES: Patient transferred from ED via gurney, Awake, alert and oriented x2, On room air, no acute distress at this time. lapper initiated, VS taken, Belonging check done with transferring nurse. Patient came with blood and D10 running. Skin assessment done, Patient has sacral redness, Picture taken and covered with Optifoam Heel covered with Optifoam. IV on left Hand 22G and Right wrist 20 G, patent and intact. Bed in low position and locked, Call light within reach, Side rails up x3. Bed alarm is on. Will contact Primary MD for admission order.
--- NOTE | 2020-03-03 14:22 | General Progress Note ---
Assessment/Plan Assessment/Plan: GI CONSULT Dictated. Thank you Annalee Vasquez MD Subjective Allergies: Coded Allergies: No Known Allergies (Unverified , 01/09/20) Objective Last 24 Hour Vital Signs Date Time Temp Pulse Resp B/P (MAP) Pulse Ox O2 Delivery O2 Flow Rate FiO2 03/03/20 13:58 98.9 78 18 142/78 98 Room Air 76 03/03/20 12:14 98.0 72 20 03/03/20 12:00 98.6 72 20 148/82 100 Room Air 74 03/03/20 10:00 98.6 80 19 150/72 100 Room Air 78 03/03/20 09:45 98.6 78 19 148/72 100 Room Air 76 03/03/20 08:30 98.7 79 19 145/62 100 Room Air 03/03/20 06:26 79 19 154/53 100 Room Air 03/03/20 06:26 79 19 Room Air 03/03/20 06:23 79 19 154/53 (86) 100 Room Air Laboratory Tests 03/03/20 06:31: White Blood Count 10.4, Red Blood Count 2.78L, Hemoglobin 6.8*L, Hematocrit 23.4L, Mean Corpuscular Volume 84, Mean Corpuscular Hemoglobin 24.5L, Mean Corpuscular Hemoglobin Concent 29.0L, Red Cell Distribution Width 18.6H, Platelet Count 348, Mean Platelet Volume 7.4, Neutrophils (%) (Auto) , Lymphocytes (%) (Auto) , Monocytes (%) (Auto) , Eosinophils (%) (Auto) , Basophils (%) (Auto) , Differential Total Cells Counted 100, Neutrophils % ( Manual) 87H, Lymphocytes % (Manual) 10L, Monocytes % (Manual) 3, Eosinophils % ( Manual) 0, Basophils % (Manual) 0, Band Neutrophils 0, Platelet Estimate Adequate, Platelet Morphology Normal, Polychromasia 1+, Hypochromasia 2+, Anisocytosis 1+, Prothrombin Time 11.1, Prothromb Time International Ratio 1.0, Activated Partial Thromboplast Time 24, Sodium Level 139, Potassium Level 3.2L, Chloride Level 106, Carbon Dioxide Level 21, Anion Gap 13, Blood Urea Nitrogen 18, Creatinine 1.0, Estimat Glomerular Filtration Rate 54.7, Glucose Level 157H , Calcium Level 8.4L, Total Bilirubin 0.4, Aspartate Amino Transf (AST/SGOT) 27 , Alanine Aminotransferase (ALT/SGPT) 15, Alkaline Phosphatase 74, Total Protein 6.9, Albumin 3.4, Globulin 3.5, Albumin/Globulin Ratio 1.0 03/03/20 06:52: Lactic Acid Level 1.30 03/03/20 06:55: Urine Color Pale yellow, Urine Appearance Clear, Urine pH 5, Urine Specific [place] 1.020, Urine Protein 2+H, Urine Glucose (UA) Negative, Urine Ketones 2+H , Urine Blood Negative, Urine Nitrite Negative, Urine Bilirubin Negative, Urine Urobilinogen Normal, Urine Leukocyte Esterase 1+H, Urine RBC 0-2, Urine WBC 0-2 , Urine Squamous Epithelial Cells Occasional, Urine Bacteria Occasional Height (Feet): 5 Height (Inches): 2.00 Weight (Pounds): 120 Annalee Vasquez MD Mar 03, 2020 14:22
[2020-03-03] MEDS: NovoLOG Insulin Flexpen SUBQ SCH ×2 (17:12→21:00)
--- NOTE | 2020-03-03 19:15 | NUR ---
NURSE NOTES: Received pt and report from SOURAV Thomas. Observed pt resting in bed with both closed eyes open; arousable to voice. A/Ox2. cafeteria monitor is in placed, IV site intact, asymptomatic, and patent; running 1/2 NS @60cc/hr. Bed is in the lowest position and locked. Call light and bedside table is within reach. No signs/symptoms of acute distress noted at this time. Will continue plan of care.
--- NOTE | 2020-03-03 19:17 | NUR ---
HAND-OFF: Report given to Dayanara/RN, Patient is in stable condition, Endorsed plan of care.
[2020-03-04] VITALS: BP 152/77
--- NOTE | 2020-03-04 | Consultation ---
DATE OF CONSULTATION: 03/03/2020 GASTROENTEROLOGY CONSULTATION CONSULTING PHYSICIAN: Annalee Vsaquez M.D. CHIEF COMPLAINT: I was asked to see this patient by Dr. Chong Rodriguez for evaluation of anemia. HISTORY OF PRESENT ILLNESS: The patient is a 70-year-old woman, who was brought in from [facility] due to hypoglycemia. No further details are available and the patient is a very poor historian, did not provide much details. This consultation for the patient was generated since the patient's admission, emergency room evaluation also showed significant degree of anemia. The etiology is unclear. The patient was seen previously in December for similar anemia finding. At that time, transfusions were ordered. The plans were made to perform an endoscopy and colonoscopy, but the patient was subsequently discharged. Now, the patient is readmitted. Her blood count remains low. The patient denies any abdominal pain or nausea or vomiting. PAST MEDICAL HISTORY: History of hypertension, history of diabetes, history of congestive heart failure. FAMILY HISTORY: Unobtainable and likely noncontributory. SOCIAL HISTORY: The patient has no chart history of smoking or drinking. REVIEW OF SYSTEMS: Otherwise negative. PHYSICAL EXAMINATION: GENERAL: An elderly woman, seen in the emergency room. HEENT: Normocephalic, atraumatic. Dentition is poor. NECK: Supple. CHEST: Clear to auscultation. CARDIOVASCULAR: Revealed a regular rate. ABDOMEN: Soft without masses or tenderness. EXTREMITIES: Revealed no edema. LABORATORY DATA: Noted. ASSESSMENT: This patient presents with anemia of unclear etiology. The differential diagnosis would include both upper and lower gastrointestinal sources and history of peptic ulcer disease with malignancies. The patient's stool should be checked for occult blood and I would also check iron panel. I am unable to reach any family members since no phone numbers are available. I would ask the Bioinformatics Team Member tomorrow to help to locate the family for proper evaluation, consent, and decision making. In the meantime, the patient can receive intravenous iron should the iron panel be low and transfuse as necessary. Proton-pump inhibitor will be also given for now. RECOMMENDATIONS: Per above discussion and per orders written in the chart. Thank you for asking me to participate in the care of this patient. Annalee Vasquez M.D. DR: RUDY JOB#: [id number] CC:
--- NOTE | 2020-03-04 03:14 | History and Physical Report ---
DATE OF ADMISSION: 03/03/2020 TIME SEEN: At 8 a.m. CONSULTANTS: 1. Jarek Mcmullen MD. 2. Kendrick Willoughby MD. 3. Russ Li MD. CHIEF COMPLAINT: Hypoglycemia, anemia. BRIEF HISTORY: This is a 70-year-old female, living in an assisted living, was found to be quite hypoglycemic this morning, sent to [place], also diagnosed with anemia down to 6.8. Currently, sleeping in bed, in the ER [facility], awaiting admission. REVIEW OF SYSTEMS: Unavailable. PAST MEDICAL HISTORY: Includes CHF. PAST SURGICAL HISTORY: Unknown. MEDICATIONS: Include levofloxacin IV and normal saline. ALLERGIES: Denies. SOCIAL HISTORY: Unable to obtain, the patient is very sleepy. PHYSICAL EXAMINATION: GENERAL: Sleeping in bed, in the ER [place], not talking much. Lethargic, sleepy. VITAL SIGNS: Temperature is not given, pulse 79, respirations 19, blood pressure 154/53. HEENT: Normocephalic, atraumatic. NECK: Trachea midline. CARDIOVASCULAR: No peripheral edema. LUNGS: Breathing comfortably on room air. ABDOMEN: No apparent wounds. EXTREMITIES: Show no cyanosis or clubbing. LABORATORY AND DIAGNOSTIC DATA: Labs at this time show hemoglobin and hematocrit 6.8/23, otherwise CBC is normal. BMP shows potassium 3.2, glucose 157, otherwise normal. Urinalysis show 2+ protein, 2+ ketone, 1+ leukocyte esterase. ASSESSMENT: 1. Anemia. 2. UTI. 3. Hypoglycemia. 4. Diabetes. 5. CHF. PLAN: Resume home medications. Blood sugar control. Transfuse p.r.n. Antibiotics per Infectious Disease. PT and dietary evaluation. CBC and BMP in the morning. We will add Endocrine and ID followup as well. Chong Rodriguez D.O. DR: KENDRICK JOB#: [id number] CC:
[2020-03-04 04:00] VITALS: BP 160/74
[2020-03-04] MEDS: NovoLOG Insulin Flexpen SUBQ SCH ×4 (06:18→21:00)
--- NOTE | 2020-03-04 06:30 | Consultation ---
History of Present Illness General Chief Complaint: Altered Level of Consciousness Present Illness Allergies: Coded Allergies: No Known Allergies (Unverified , 01/09/20) Medication History No Active Prescriptions or Reported Meds Patient History Healthcare decision maker Resuscitation status Advanced Directive on File Physical Exam Last 24 Hour Vital Signs Date Time Temp Pulse Resp B/P (MAP) Pulse Ox O2 Delivery O2 Flow Rate FiO2 03/04/20 05:39 167/77 03/04/20 04:00 98.6 66 19 160/74 (102) 97 03/04/20 04:00 66 03/04/20 00:27 152/77 03/04/20 00:00 99.7 61 20 152/77 (102) 96 03/04/20 00:00 65 03/03/20 21:00 Room Air 03/03/20 20:00 98.8 60 20 146/72 (96) 97 03/03/20 20:00 63 03/03/20 17:20 159/84 03/03/20 16:20 97.7 72 18 179/94 (122) 98 03/03/20 16:08 Room Air 03/03/20 15:45 Room Air 03/03/20 14:00 97.9 68 20 161/93 (115) 100 03/03/20 13:58 98.9 78 18 142/78 98 Room Air 76 03/03/20 12:14 98.0 72 20 03/03/20 12:00 98.6 72 20 148/82 100 Room Air 74 03/03/20 10:00 98.6 80 19 150/72 100 Room Air 78 03/03/20 09:45 98.6 78 19 148/72 100 Room Air 76 03/03/20 08:30 98.7 79 19 145/62 100 Room Air Intake and Output 03/03/20 03/04/20 19:00 07:00 Intake Total 490 ml Balance 490 ml Intake Oral 120 ml IV Total 120 ml Blood Product 250 ml # Voids 1 Laboratory Tests Test 03/03/20 06:31 03/03/20 06:52 03/03/20 06:55 03/03/20 14:02 White Blood Count 10.4 K/UL (4.8-10.8) Red Blood Count 2.78 M/UL (4.20-5.40) L Hemoglobin 6.8 G/DL (12.0-16.0) *L Hematocrit 23.4 % (37.0-47.0) L Mean Corpuscular Volume 84 FL (80-99) Mean Corpuscular Hemoglobin 24.5 PG (27.0-31.0) L Mean Corpuscular Hemoglobin Concent 29.0 G/DL (32.0-36.0) L Red Cell Distribution Width 18.6 % (11.6-14.8) H Platelet Count 348 K/UL (150-450) Mean Platelet Volume 7.4 FL (6.5-10.1) Neutrophils (%) (Auto) % (45.0-75.0) Lymphocytes (%) (Auto) % (20.0-45.0) Monocytes (%) (Auto) % (1.0-10.0) Eosinophils (%) (Auto) % (0.0-3.0) Basophils (%) (Auto) % (0.0-2.0) Differential Total Cells Counted 100 Neutrophils % (Manual) 87 % (45-75) H Lymphocytes % (Manual) 10 % (20-45) L Monocytes % (Manual) 3 % (1-10) Eosinophils % (Manual) 0 % (0-3) Basophils % (Manual) 0 % (0-2) Band Neutrophils 0 % (0-8) Platelet Estimate Adequate Platelet Morphology Normal Polychromasia 1+ Hypochromasia 2+ Anisocytosis 1+ Prothrombin Time 11.1 SEC (9.30-11.50) Prothromb Time International Ratio 1.0 (0.9-1.1) Activated Partial Thromboplast Time 24 SEC (23-33) Sodium Level 139 MMOL/L (136-145) Potassium Level 3.2 MMOL/L (3.5-5.1) L Chloride Level 106 MMOL/L (98-107) Carbon Dioxide Level 21 MMOL/L (21-32) Anion Gap 13 mmol/L (5-15) Blood Urea Nitrogen 18 mg/dL (7-18) Creatinine 1.0 MG/DL (0.55-1.30) Estimat Glomerular Filtration Rate 54.7 mL/min (>60) Glucose Level 157 MG/DL (74-106) H Calcium Level 8.4 MG/DL (8.5-10.1) L Total Bilirubin 0.4 MG/DL (0.2-1.0) Aspartate Amino Transf (AST/SGOT) 27 U/L (15-37) Alanine Aminotransferase (ALT/SGPT) 15 U/L (12-78) Alkaline Phosphatase 74 U/L (46-116) Total Protein 6.9 G/DL (6.4-8.2) Albumin 3.4 G/DL (3.4-5.0) Globulin 3.5 g/dL Albumin/Globulin Ratio 1.0 (1.0-2.7) Lactic Acid Level 1.30 mmol/L (0.4-2.0) Urine Color Pale yellow Urine Appearance Clear Urine pH 5 (4.5-8.0) Urine Specific Dickinson 1.020 (1.005-1.035) Urine Protein 2+ (NEGATIVE) H Urine Glucose (UA) Negative (NEGATIVE) Urine Ketones 2+ (NEGATIVE) H Urine Blood Negative (NEGATIVE) Urine Nitrite Negative (NEGATIVE) Urine Bilirubin Negative (NEGATIVE) Urine Urobilinogen Normal MG/DL (0.0-1.0) Urine Leukocyte Esterase 1+ (NEGATIVE) H Urine RBC 0-2 /HPF (0 - 2) Urine WBC 0-2 /HPF (0 - 2) Urine Squamous Epithelial Cells Occasional /LPF Urine Bacteria Occasional /HPF (NONE) POC Whole Blood Glucose 75 MG/DL (74-106) Test 03/03/20 16:51 03/03/20 20:17 03/04/20 05:22 POC Whole Blood Glucose 150 MG/DL (74-106) H 83 MG/DL (74-106) 88 MG/DL (74-106) Microbiology Date/Time Source Procedure Growth Status 03/03/20 09:00 Nasopharynx SARS-CoV-2 RdRp Gene Assay - Final Complete Height (Feet): 5 Height (Inches): 2.00 Weight (Pounds): 106 Medications Current Medications Medications (Trade) Dose Ordered Sig/Breana Route PRN Reason Start Time Stop Time Status Last Admin Dose Admin Clonidine HCl (Catapres Tab) 0.1 mg EVERY 6 HOURS ORAL 03/03/20 18:00 06/01/20 17:59 03/04/20 05:39 Dextrose (Dextrose 50%) 25 ml Q30M PRN IV Hypoglycemia 03/03/20 16:30 06/01/20 16:29 Dextrose (Dextrose 50%) 50 ml Q30M PRN IV Hypoglycemia 03/03/20 16:30 06/01/20 16:29 Insulin Aspart (NovoLOG) BEFORE MEALS AND HS SUBQ 03/03/20 16:30 06/01/20 16:29 03/03/20 17:12 Pantoprazole (Protonix) 40 mg DAILY ORAL 03/04/20 09:00 04/03/20 08:59 Sodium Chloride 1,000 ml @ 60 mls/hr [id number] IV 03/03/20 16:30 04/02/20 16:29 03/03/20 16:52 Assessment/Plan Assessment/Plan: Heme Consultation REQ MD: Chong Rodriguez [facility]: Anemia evaluation DOS 03/05/2020 ID 70-year-old female presents for altered mental status. Found at her boarding care by EMS. Accu-Chek 31. Given D10. Accu-Chek improved. Patient more awake. She is a diabetic. States she feels cold. Does not know what medication she takes. Denies fevers chills. Denies cough. Denies chest pain or shortness of breath. No other aggravating relieving factors. Denies any other associated symptoms. No evidence of bleeding, hgb 6.8, no hemolysis, has been seen by gi. Allergies: No Known Allergies (Unverified , 01/09/20) COVID-19 Screening Contact w/high risk pt: No Recent Travel to affected area: No Experienced COVID-19 symptoms?: No COVID-19 symptoms experienced: Shortness of Breath, Cough COVID-19 Testing performed TESTING PROJECTS ADMINISTRATOR: No Patient History Past Medical History: DM, HTN Past Surgical History: pacemaker Pertinent Family History: none Social History: Denies: smoking, alcohol use, drug use Now: No Immunizations: UTD Reviewed Nursing Documentation: PMH: Agreed; PSxH: Agreed Nursing Documentation-PMH Hx Cardiac Problems: Yes Hx Hypertension: Yes Hx Pacemaker: Yes Hx Diabetes: Yes Hx Cancer: No Hx Gastrointestinal Problems: No Hx Neurological Problems: No Review of Systems All Other Systems: negative except mentioned in HPI Physical Exam Vitals: reviewed, normal General: no apparent distress, alert, GCS 15, non-toxic HEENT: hearing grossly normal, normal pharynx, no angioedema, normal voice Neck: full range of motion, supple/symm/no masses Respiratory: chest non-tender, lungs clear, normal breath sounds, speaking full sentences Cardiovascular: regular rate, rhythm, no edema Gastrointestinal: normal bowel sounds, non tender, soft, non-distended, no guarding, no rebound Rectal: deferred Genit: normal inspection, no CVA tenderness Muscul: back normal, normal range of motion, gait/station normal, non-tender Neuro: alert, motor strength/tone normal, oriented x3, sensory intact, responsive, speech normal Psych: judgement/insight normal, memory normal, mood/affect normal, no suicidal /homicidal ideation Skin: other - Nursing notes Lymphatic: no adenopathy Labs reviewed Imaging: reviewed Assessment and Recs # Anemia of chronic disease, upon admission was 6.8 --> anemia panel has been ordered, occult blood has been ordered --> no evidence of hemolysis --> transfuse on a prn basis --> hgb goal >7 # Hypoglycemia --> as per endo # Pneumonia, Mild residual upper lobe airspace opacities from prior pneumonia. --> on abx -> cxr imaging prn # Hypotension --> ivfs # Aflutter, some PVCS, paced no acute ischemic changes intepreted by me -> as per cards # Sternotomy wires, pacemaker, mild opacities seen on prior CXR --> prior hx of surgery # Dvt ppx scds Appreciate consultation and dw Tobin Judge MD Mar 04, 2020 06:30
[2020-03-04 07:01] LABS: BASOPHILS % (AUTO) 0.7 % (0.0-2.0); EOSINOPHILS % (AUTO) 1.3 % (0.0-3.0); HEMATOCRIT 34.1 % (37.0-47.0); HEMOGLOBIN 10.4 G/DL (12.0-16.0); LYMPHOCYTES % (AUTO) 11.4 % (20.0-45.0); MEAN CORPUSCULAR VOLUME 86 FL (80-99); MONOCYTES % (AUTO) 7.9 % (1.0-10.0); NEUTROPHILS % (AUTO) 78.7 % (45.0-75.0); PLATELET COUNT 262 K/UL (150-450); RED BLOOD COUNT 3.95 M/UL (4.20-5.40); RED CELL DISTRIBUTION WIDTH 17.3 % (11.6-14.8); WHITE BLOOD COUNT 9.6 K/UL (4.8-10.8)
[2020-03-04 07:05] LABS: ANION GAP 14 mmol/L (5-15); BLOOD UREA NITROGEN 12 mg/dL (7-18); CALCIUM 8.4 MG/DL (8.5-10.1); CARBON DIOXIDE 21 MMOL/L (21-32); CHLORIDE 108 MMOL/L (98-107); CREATININE 0.9 MG/DL (0.55-1.30); POTASSIUM 3.2 MMOL/L (3.5-5.1); SODIUM 143 MMOL/L (136-145)
[2020-03-04 07:21] LABS: % IRON SATURATION 8 % (15-50); IRON 25 ug/dL (50-175); TOTAL IRON BINDING CAPACITY 332 ug/dL (250-450)
[2020-03-04 08:00] VITALS: BP 195/97
--- NOTE | 2020-03-04 08:00 | NUR ---
NURSE NOTES: Received pt from SOURAV Nichole. Pt alert w/ confusion. No s/s of acute respiratory and cardiac distress. On room air. IVF infusing on left hand. Currently has purewick in place to collect urine. Bed in low position, side rails up x3 and call light within reach. Will continue to monitor.
--- NOTE | 2020-03-04 08:03 | NUR ---
HAND-OFF: Report given to SOURAV Leahy. Plan of care endorsed.
--- NOTE | 2020-03-04 08:12 | NUR ---
NURSE NOTES: Pt potassium is 3.2. Informed Dr. Rodriguez about result and he ordered potassium chloride 40 med PO x1 and CBC and BMP in AM. Will follow with nursing intervention.
--- NOTE | 2020-03-04 08:23 | General Progress Note ---
Assessment/Plan Problem List: (1) HTN (hypertension) ICD Codes: I10 - Essential (primary) hypertension SNOMED: 00553343 (2) Diabetes ICD Codes: E11.9 - Type 2 diabetes mellitus without complications SNOMED: 77515717 (3) CHF exacerbation ICD Codes: I50.9 - Heart failure, unspecified SNOMED: 311568417, 32221080198051 (4) Anemia ICD Codes: D64.9 - Anemia, unspecified SNOMED: 395160612 Qualifiers: Qualified Codes: D64.9 - Anemia, unspecified (5) Hypoglycemia ICD Codes: E16.2 - Hypoglycemia, unspecified SNOMED: 856359733 Status: unchanged Assessment/Plan: pt diet bp bs control endo eval cbc bmp am Subjective Allergies: Coded Allergies: No Known Allergies (Unverified , 01/09/20) All Systems: reviewed and negative except above Subjective sleepy calm Objective Last 24 Hour Vital Signs Date Time Temp Pulse Resp B/P (MAP) Pulse Ox O2 Delivery O2 Flow Rate FiO2 03/04/20 05:39 167/77 03/04/20 04:00 98.6 66 19 160/74 (102) 97 03/04/20 04:00 66 03/04/20 00:27 152/77 03/04/20 00:00 99.7 61 20 152/77 (102) 96 03/04/20 00:00 65 03/03/20 21:00 Room Air 03/03/20 20:00 98.8 60 20 146/72 (96) 97 03/03/20 20:00 63 03/03/20 17:20 159/84 03/03/20 16:20 97.7 72 18 179/94 (122) 98 03/03/20 16:08 Room Air 03/03/20 15:45 Room Air 03/03/20 14:00 97.9 68 20 161/93 (115) 100 03/03/20 13:58 98.9 78 18 142/78 98 Room Air 76 03/03/20 12:14 98.0 72 20 03/03/20 12:00 98.6 72 20 148/82 100 Room Air 74 03/03/20 10:00 98.6 80 19 150/72 100 Room Air 78 03/03/20 09:45 98.6 78 19 148/72 100 Room Air 76 03/03/20 08:30 98.7 79 19 145/62 100 Room Air Intake and Output 03/03/20 03/04/20 19:00 07:00 Intake Total 490 ml 150 ml Balance 490 ml 150 ml Intake Oral 120 ml 150 ml IV Total 120 ml Blood Product 250 ml # Voids 1 2 Laboratory Tests 03/03/20 14:02: POC Whole Blood Glucose 75 03/03/20 16:51: POC Whole Blood Glucose 150H 03/03/20 20:17: POC Whole Blood Glucose 83 03/04/20 05:10: White Blood Count 9.6, Red Blood Count 3.95L, Hemoglobin 10.4#L, Hematocrit 34.1 #L, Mean Corpuscular Volume 86, Mean Corpuscular Hemoglobin 26.2L, Mean Corpuscular Hemoglobin Concent 30.4L, Red Cell Distribution Width 17.3H, Platelet Count 262, Mean Platelet Volume 7.4, Neutrophils (%) (Auto) 78.7H, Lymphocytes (%) (Auto) 11.4L, Monocytes (%) (Auto) 7.9, Eosinophils (%) (Auto) 1.3, Basophils (%) (Auto) 0.7, Neutrophils % (Manual) [Pending], Lymphocytes % ( Manual) [Pending], Platelet Estimate [Pending], Platelet Morphology [Pending], Reticulocyte Count [Pending], Sodium Level 143, Potassium Level 3.2L, Chloride Level 108H, Carbon Dioxide Level 21, Anion Gap 14, Blood Urea Nitrogen 12, Creatinine 0.9, Estimat Glomerular Filtration Rate > 60, Glucose Level 78, Calcium Level 8.4L, Iron Level 25L, Total Iron Binding Capacity 332, Percent Iron Saturation 8L, Unsaturated Iron Binding 307, Ferritin 29, Vitamin B12 Level [Pending], Thyroid Stimulating Hormone (TSH) 0.637 03/04/20 05:22: POC Whole Blood Glucose 88 Height (Feet): 5 Height (Inches): 2.00 Weight (Pounds): 106 General Appearance: lethargic EENT: normal ENT inspection Neck: normal alignment Cardiovascular: normal peripheral pulses, normal rate, regular rhythm Respiratory/Chest: chest wall non-tender, lungs clear, normal breath sounds Abdomen: normal bowel sounds, non tender, soft Extremities: normal inspection Edema: no edema noted Arm (L), no edema noted Arm (R), no edema noted Leg (L), no edema noted Leg (R), no edema noted Pedal (L), no edema noted Pedal (R), no edema noted Generalized Neurologic: motor weakness Skin: normal pigmentation, warm/dry Chong Rodriguez DO Mar 04, 2020 08:23
--- NOTE | 2020-03-04 09:00 | NUR ---
NURSE NOTES: Pt blood pressure [id number]/97, EM 193/102. Informed Dr. Frederick and he ordered Clonidine 0.2 mg q2h PRN SBP >170 and Norvasc 5 mg PO BID. Will continue with nursing intervention.
[2020-03-04] MEDS ORDERED: cloNIDine 0.2mg Tab ORAL PRN (09:30)
--- NOTE | 2020-03-04 10:24 | NUR ---
RD ASSESSMENT & RECOMMENDATIONS SEE CARE ACTIVITY FOR COMPLETE ASSESSMENT DAILY ESTIMATED NEEDS: Needs based on DM, wound/ 48kg 25-30 kcals/kg 2460-2891 total kcals 1.25-1.5 g protein/kg 60-72 g total protein 25-30 mL/kg 3367-3450 total fluid mLs NUTRITION DIAGNOSIS: Altered nutrition related lab values R/T h/o diabetes as evidendced by admitted w/ c/o hypoglycemia (BG 31), now improved. CURRENT DIET:LOW NA, soft easy chew PO DIET RECOMMENDATIONS: Maintain LOW NA/ texture as tolerated ADDITIONAL RECOMMENDATIONS: * Calibrated bedscale wt * Monitor BGs, need for carb control diet * Rec added D5 w/ poor PO to prevent hypoglycemia * Snacks TID in b/w meals * F/up w/ WC eval- add MVI x 1 + Vit C 250mg QD for now * Monitor lytes, replete as needed (low K)
--- NOTE | 2020-03-04 11:22 | General Progress Note ---
Assessment/Plan Problem List: (1) CHF exacerbation ICD Codes: I50.9 - Heart failure, unspecified SNOMED: 717086393, 78238816263370 (2) HTN (hypertension) ICD Codes: I10 - Essential (primary) hypertension SNOMED: 96442773 (3) Diabetes ICD Codes: E11.9 - Type 2 diabetes mellitus without complications SNOMED: 33847550 (4) Anemia ICD Codes: D64.9 - Anemia, unspecified SNOMED: 693337334 Qualifiers: Qualified Codes: D64.9 - Anemia, unspecified Status: unchanged Assessment/Plan: iv iron fu H&H fu stool ob public health social worker to locate the family for consent Subjective ROS Limited/Unobtainable: Yes Allergies: Coded Allergies: No Known Allergies (Unverified , 01/09/20) Objective Last 24 Hour Vital Signs Date Time Temp Pulse Resp B/P (MAP) Pulse Ox O2 Delivery O2 Flow Rate FiO2 03/04/20 09:43 80 195/97 03/04/20 09:00 Room Air 03/04/20 08:00 97.7 80 20 195/97 (129) 95 03/04/20 08:00 62 03/04/20 05:39 167/77 03/04/20 04:00 98.6 66 19 160/74 (102) 97 03/04/20 04:00 66 03/04/20 00:27 152/77 03/04/20 00:00 99.7 61 20 152/77 (102) 96 03/04/20 00:00 65 03/03/20 21:00 Room Air 03/03/20 20:00 98.8 60 20 146/72 (96) 97 03/03/20 20:00 63 03/03/20 17:20 159/84 03/03/20 16:20 97.7 72 18 179/94 (122) 98 03/03/20 16:08 Room Air 03/03/20 15:45 Room Air 03/03/20 14:00 97.9 68 20 161/93 (115) 100 03/03/20 13:58 98.9 78 18 142/78 98 Room Air 76 03/03/20 12:14 98.0 72 20 03/03/20 12:00 98.6 72 20 148/82 100 Room Air 74 Intake and Output 03/03/20 03/04/20 19:00 07:00 Intake Total 490 ml 150 ml Balance 490 ml 150 ml Intake Oral 120 ml 150 ml IV Total 120 ml Blood Product 250 ml # Voids 1 2 Laboratory Tests 03/03/20 14:02: POC Whole Blood Glucose 75 03/03/20 16:51: POC Whole Blood Glucose 150H 03/03/20 20:17: POC Whole Blood Glucose 83 03/04/20 05:10: White Blood Count 9.6, Red Blood Count 3.95L, Hemoglobin 10.4#L, Hematocrit 34.1 #L, Mean Corpuscular Volume 86, Mean Corpuscular Hemoglobin 26.2L, Mean Corpuscular Hemoglobin Concent 30.4L, Red Cell Distribution Width 17.3H, Platelet Count 262, Mean Platelet Volume 7.4, Neutrophils (%) (Auto) 78.7H, Lymphocytes (%) (Auto) 11.4L, Monocytes (%) (Auto) 7.9, Eosinophils (%) (Auto) 1.3, Basophils (%) (Auto) 0.7, Differential Total Cells Counted 100, Neutrophils % (Manual) 77H, Lymphocytes % (Manual) 16L, Monocytes % (Manual) 5, Eosinophils % (Manual) 2, Basophils % (Manual) 0, Band Neutrophils 0, Platelet Estimate Adequate, Platelet Morphology Normal, Polychromasia 1+, Hypochromasia 1 +, Anisocytosis 1+, Reticulocyte Count 1.9, Sodium Level 143, Potassium Level 3.2L, Chloride Level 108H, Carbon Dioxide Level 21, Anion Gap 14, Blood Urea Nitrogen 12, Creatinine 0.9, Estimat Glomerular Filtration Rate > 60, Glucose Level 78, Calcium Level 8.4L, Iron Level 25L, Total Iron Binding Capacity 332, Percent Iron Saturation 8L, Unsaturated Iron Binding 307, Ferritin 29, Vitamin B12 Level 310, Thyroid Stimulating Hormone (TSH) 0.637 03/04/20 05:22: POC Whole Blood Glucose 88 Height (Feet): 5 Height (Inches): 2.00 Weight (Pounds): 106 General Appearance: no apparent distress EENT: PERRL/EOMI Neck: supple Cardiovascular: normal rate Respiratory/Chest: decreased breath sounds Pelvis: no active bleeding Extremities: non-tender Jarek Mcmullen MD Mar 04, 2020 11:22
[2020-03-04 12:00] VITALS: BP 182/79
--- NOTE | 2020-03-04 12:09 | Consultation ---
History of Present Illness General Date patient seen: Mar 04, 2020 Chief Complaint: Altered Level of Consciousness Present Illness HPI 70 y/o F with hx of HTN, Dm2, s/p PPM, CHF, board care resident presented to ED on 03/03/20 with hypoglycemia, altered mental status and anemia. BG by EMS was 31. Denied abd pain, nausea, vomiting, fever/chills, cough, chest pain, SOB. Allergies: Coded Allergies: No Known Allergies (Unverified , 01/09/20) Medication History No Active Prescriptions or Reported Meds Patient History Healthcare decision maker Resuscitation status Advanced Directive on File Patient History Narrative Pmhx: as above Shx: Denies: smoking, alcohol use, drug use Fhx: non contributory Review of Systems All Other Systems: negative except mentioned in HPI Physical Exam Physical Exam Narrative GENERAL: Sleeping in bed, in the ER gurney, not talking much. Lethargic, sleepy. HEENT: Normocephalic, atraumatic. NECK: Trachea midline. CARDIOVASCULAR: No peripheral edema. LUNGS: Breathing comfortably on room air. ABDOMEN: No apparent wounds. EXTREMITIES: Show no cyanosis or clubbing. Last 24 Hour Vital Signs Date Time Temp Pulse Resp B/P (MAP) Pulse Ox O2 Delivery O2 Flow Rate FiO2 03/04/20 09:43 80 195/97 03/04/20 09:00 Room Air 03/04/20 08:00 97.7 80 20 195/97 (129) 95 03/04/20 08:00 62 03/04/20 05:39 167/77 03/04/20 04:00 98.6 66 19 160/74 (102) 97 03/04/20 04:00 66 03/04/20 00:27 152/77 03/04/20 00:00 99.7 61 20 152/77 (102) 96 03/04/20 00:00 65 03/03/20 21:00 Room Air 03/03/20 20:00 98.8 60 20 146/72 (96) 97 03/03/20 20:00 63 03/03/20 17:20 159/84 03/03/20 16:20 97.7 72 18 179/94 (122) 98 03/03/20 16:08 Room Air 03/03/20 15:45 Room Air 03/03/20 14:00 97.9 68 20 161/93 (115) 100 03/03/20 13:58 98.9 78 18 142/78 98 Room Air 76 03/03/20 12:14 98.0 72 20 03/03/20 12:00 98.6 72 20 148/82 100 Room Air 74 Intake and Output 03/03/20 03/04/20 19:00 07:00 Intake Total 490 ml 150 ml Balance 490 ml 150 ml Intake Oral 120 ml 150 ml IV Total 120 ml Blood Product 250 ml # Voids 1 2 Laboratory Tests Test 03/03/20 14:02 03/03/20 16:51 03/03/20 20:17 03/04/20 05:10 POC Whole Blood Glucose 75 MG/DL (74-106) 150 MG/DL (74-106) H 83 MG/DL (74-106) White Blood Count 9.6 K/UL (4.8-10.8) Red Blood Count 3.95 M/UL (4.20-5.40) L Hemoglobin 10.4 G/DL (12.0-16.0) #L Hematocrit 34.1 % (37.0-47.0) #L Mean Corpuscular Volume 86 FL (80-99) Mean Corpuscular Hemoglobin 26.2 PG (27.0-31.0) L Mean Corpuscular Hemoglobin Concent 30.4 G/DL (32.0-36.0) L Red Cell Distribution Width 17.3 % (11.6-14.8) H Platelet Count 262 K/UL (150-450) Mean Platelet Volume 7.4 FL (6.5-10.1) Neutrophils (%) (Auto) 78.7 % (45.0-75.0) H Lymphocytes (%) (Auto) 11.4 % (20.0-45.0) L Monocytes (%) (Auto) 7.9 % (1.0-10.0) Eosinophils (%) (Auto) 1.3 % (0.0-3.0) Basophils (%) (Auto) 0.7 % (0.0-2.0) Differential Total Cells Counted 100 Neutrophils % (Manual) 77 % (45-75) H Lymphocytes % (Manual) 16 % (20-45) L Monocytes % (Manual) 5 % (1-10) Eosinophils % (Manual) 2 % (0-3) Basophils % (Manual) 0 % (0-2) Band Neutrophils 0 % (0-8) Platelet Estimate Adequate Platelet Morphology Normal Polychromasia 1+ Hypochromasia 1+ Anisocytosis 1+ Reticulocyte Count 1.9 % (0.5-2.0) Sodium Level 143 MMOL/L (136-145) Potassium Level 3.2 MMOL/L (3.5-5.1) L Chloride Level 108 MMOL/L (98-107) H Carbon Dioxide Level 21 MMOL/L (21-32) Anion Gap 14 mmol/L (5-15) Blood Urea Nitrogen 12 mg/dL (7-18) Creatinine 0.9 MG/DL (0.55-1.30) Estimat Glomerular Filtration Rate > 60 mL/min (>60) Glucose Level 78 MG/DL (74-106) Calcium Level 8.4 MG/DL (8.5-10.1) L Iron Level 25 ug/dL (50-175) L Total Iron Binding Capacity 332 ug/dL (250-450) Percent Iron Saturation 8 % (15-50) L Unsaturated Iron Binding 307 ug/dL (112-346) Ferritin 29 NG/ML (8-388) Vitamin B12 Level 310 PG/ML (193-986) Thyroid Stimulating Hormone (TSH) 0.637 uiU/mL (0.358-3.740) Test 03/04/20 05:22 03/04/20 11:26 POC Whole Blood Glucose 88 MG/DL (74-106) 88 MG/DL (74-106) Height (Feet): 5 Height (Inches): 2.00 Weight (Pounds): 106 Medications Current Medications Medications (Trade) Dose Ordered Sig/Breana Route PRN Reason Start Time Stop Time Status Last Admin Dose Admin Amlodipine Besylate (Norvasc) 5 mg Q12HR ORAL 03/04/20 09:40 04/03/20 09:39 03/04/20 09:43 Clonidine HCl (Catapres Tab) 0.1 mg EVERY 6 HOURS ORAL 03/03/20 18:00 06/01/20 17:59 03/04/20 05:39 Clonidine HCl (Catapres tab) 0.2 mg Q2H PRN ORAL For High Blood Pressure 03/04/20 09:30 06/02/20 09:29 Dextrose (Dextrose 50%) 25 ml Q30M PRN IV Hypoglycemia 03/03/20 16:30 06/01/20 16:29 Dextrose (Dextrose 50%) 50 ml Q30M PRN IV Hypoglycemia 03/03/20 16:30 06/01/20 16:29 Docusate Sodium (Colace) 100 mg TWICE A DAY ORAL 03/04/20 11:30 04/03/20 11:29 Insulin Aspart (NovoLOG) BEFORE MEALS AND HS SUBQ 03/03/20 16:30 06/01/20 16:29 03/03/20 17:12 Iron Sucrose 100 mg/Sodium Chloride 60 ml @ 240 mls/hr BEDTIME IV 03/04/20 21:00 03/08/20 21:14 Pantoprazole (Protonix) 40 mg DAILY ORAL 03/04/20 09:00 04/03/20 08:59 03/04/20 09:42 Polyethylene Glycol (Miralax) 17 gm BEDTIME ORAL 03/04/20 21:00 04/03/20 20:59 Sodium Chloride 1,000 ml @ 60 mls/hr [id number] IV 03/03/20 16:30 04/02/20 16:29 03/04/20 09:54 Assessment/Plan Assessment/Plan: Abx: Levaquin x1 03/03 Assessment: Gram positive bacteremia- real vs contaminant -03/03 Bcx 10/31 GPC clusters Acute anemia Acute encephalopathy 2ry to hypoglycemia Pulmonary edema -CXR: Mild pulmonary edema and probable small bilateral pleural effusions. Findings likely associated with congestive heart failure or hypervolemia. Mild residual upper lobe airspace opacities from prior pneumonia. -03/03 Rapid COVID neg Afebrile- Tm 99.7 No leukocytosis HTN Dm2 s/p PPM CHF board care resident Plan: -Start IV Vancomycin -f/u cx -Monitor CBC/CMP, temperatures -GI f/u -aspiration precautions -Bcx x2 Thank you for this consultation. Will continue to follow along with you. Discussed with Belem De Anda M.D. Mar 04, 2020 12:09
[2020-03-04] MEDS: Docusate 100mg cap ORAL SCH ×2 (12:19→17:57)
--- NOTE | 2020-03-04 12:44 | NUR ---
NURSE NOTES: Blood cx results came back positive cocci in clusters x2. Will inform Dr. Rodriguez.
--- NOTE | 2020-03-04 13:47 | NUR ---
PT NOTE Received MD order for PT evaluation. Attempted to see patient for PT evaluation. Patient sleeping, attempted to wake patient with verbal and tactile cueing however patient continued to sleep. Tosin BENJAMIN notified, will re-attempt tomorrow.
--- NOTE | 2020-03-04 14:02 | Diagnostic Imaging Report ---
Indication: Bilateral leg edema Technique: Grayscale and duplex images of the bilateral lower extremity veins Comparison: Findings: Bilaterally, grayscale and duplex images demonstrate no evidence of intraluminal thrombus. Normal phasic Doppler waveforms, demonstrating normal augmentation response and no evidence of valvular insufficiency. Greater saphenous vein(s) and tibial veins are patent. Normal compressibility. Impression: Negative for evidence of lower extremity deep venous thrombosis bilaterally
--- NOTE | 2020-03-04 14:25 | Consultation ---
History of Present Illness General Date patient seen: Mar 04, 2020 Reason for Hospitalization: Altered Level of Consciousness Present Illness HPI This is a 70-year-old female [facility] who is a care facility patient that presented for evaluation identified to have severe anemia malnutrition abnormal labs admitted further care and management. Surgery called to evaluate and assist with care. Patient seen, patient evaluated, chart reviewed. Allergies: Coded Allergies: No Known Allergies (Unverified , 01/09/20) COVID-19 Screening Contact w/high risk pt: No Recent Travel to affected area: No Experienced COVID-19 symptoms?: No COVID-19 symptoms experienced: Shortness of Breath, Cough Medication History No Active Prescriptions or Reported Meds Patient History History Provided By: Patient, Medical Record, PMD Healthcare decision maker Resuscitation status Advanced Directive on File Past Medical/Surgical History Past Medical/Surgical History: (1) Pneumonia (2) Anemia (3) Diabetes (4) HTN (hypertension) (5) CHF exacerbation (6) Hypoglycemia Review of Systems Review of Symptoms General ROS: no weight loss or fever Psychological ROS: no depression or mood changes, no memory loss Ophthalmic ROS: no visual changes or eye irritation ENT ROS: no nasal congestion, hearing loss, dizziness Allergy and Immunology ROS: no allergic symptoms or urticaria Hematological and Lymphatic ROS: no swollen glands, unusual bleeding or bruising Endocrine ROS: no polyuria, polydipsia, weight changes, temperature intolerance Respiratory ROS: no cough, shortness of breath, or wheezing Cardiovascular ROS: no chest pain or dyspnea on exertion Gastrointestinal ROS: denies abdominal pain, bright red blood in stool. Musculoskeletal ROS: no myalgias or arthralgias Neurological ROS: no TIA or stroke symptoms Dermatological ROS: no new or changing skin lesions, rashes or pruritis Physical Exam Physical Exam General appearance: alert, cooperative, no distress, appears stated age Head: Normocephalic, without obvious abnormality, atraumatic Eyes: conjunctivae/corneas clear. PERRL, EOM's intact. Fundi benign Throat: Lips, mucosa, and tongue normal. Teeth and gums normal Neck: supple, symmetrical, trachea midline, no adenopathy, thyroid: not enlarged, symmetric, no tenderness/mass/nodules, no carotid bruit and no JVD Lungs: clear to auscultation bilaterally Heart: regular rate and rhythm, S1, S2 normal, no murmur, click, rub or gallop Abdomen: soft, non-tender. Bowel sounds normal. No masses, no organomegaly Extremities: extremities normal, atraumatic, no cyanosis or edema Pulses: 2+ and symmetric Skin: Skin color, texture, turgor normal. No rashes or lesions Neurologic: Grossly normal Last 24 Hour Vital Signs Date Time Temp Pulse Resp B/P (MAP) Pulse Ox O2 Delivery O2 Flow Rate FiO2 03/04/20 12:20 182/79 03/04/20 12:00 97.5 59 20 182/79 (113) 100 03/04/20 12:00 69 03/04/20 09:43 80 195/97 03/04/20 09:00 Room Air 03/04/20 08:00 97.7 80 20 195/97 (129) 95 03/04/20 08:00 62 03/04/20 05:39 167/77 03/04/20 04:00 98.6 66 19 160/74 (102) 97 03/04/20 04:00 66 03/04/20 00:27 152/77 03/04/20 00:00 99.7 61 20 152/77 (102) 96 03/04/20 00:00 65 03/03/20 21:00 Room Air 03/03/20 20:00 98.8 60 20 146/72 (96) 97 03/03/20 20:00 63 03/03/20 17:20 159/84 03/03/20 16:20 97.7 72 18 179/94 (122) 98 03/03/20 16:08 Room Air 03/03/20 15:45 Room Air Intake and Output 03/03/20 03/04/20 19:00 07:00 Intake Total 490 ml 150 ml Balance 490 ml 150 ml Intake Oral 120 ml 150 ml IV Total 120 ml Blood Product 250 ml # Voids 1 2 Laboratory Tests Test 03/03/20 16:51 03/03/20 20:17 03/04/20 05:10 03/04/20 05:22 POC Whole Blood Glucose 150 MG/DL (74-106) H 83 MG/DL (74-106) 88 MG/DL (74-106) White Blood Count 9.6 K/UL (4.8-10.8) Red Blood Count 3.95 M/UL (4.20-5.40) L Hemoglobin 10.4 G/DL (12.0-16.0) #L Hematocrit 34.1 % (37.0-47.0) #L Mean Corpuscular Volume 86 FL (80-99) Mean Corpuscular Hemoglobin 26.2 PG (27.0-31.0) L Mean Corpuscular Hemoglobin Concent 30.4 G/DL (32.0-36.0) L Red Cell Distribution Width 17.3 % (11.6-14.8) H Platelet Count 262 K/UL (150-450) Mean Platelet Volume 7.4 FL (6.5-10.1) Neutrophils (%) (Auto) 78.7 % (45.0-75.0) H Lymphocytes (%) (Auto) 11.4 % (20.0-45.0) L Monocytes (%) (Auto) 7.9 % (1.0-10.0) Eosinophils (%) (Auto) 1.3 % (0.0-3.0) Basophils (%) (Auto) 0.7 % (0.0-2.0) Differential Total Cells Counted 100 Neutrophils % (Manual) 77 % (45-75) H Lymphocytes % (Manual) 16 % (20-45) L Monocytes % (Manual) 5 % (1-10) Eosinophils % (Manual) 2 % (0-3) Basophils % (Manual) 0 % (0-2) Band Neutrophils 0 % (0-8) Other Cell Type Pathologist review Platelet Estimate Adequate Platelet Morphology Normal Polychromasia 1+ Hypochromasia 1+ Anisocytosis 1+ Reticulocyte Count 1.9 % (0.5-2.0) Sodium Level 143 MMOL/L (136-145) Potassium Level 3.2 MMOL/L (3.5-5.1) L Chloride Level 108 MMOL/L (98-107) H Carbon Dioxide Level 21 MMOL/L (21-32) Anion Gap 14 mmol/L (5-15) Blood Urea Nitrogen 12 mg/dL (7-18) Creatinine 0.9 MG/DL (0.55-1.30) Estimat Glomerular Filtration Rate > 60 mL/min (>60) Glucose Level 78 MG/DL (74-106) Calcium Level 8.4 MG/DL (8.5-10.1) L Iron Level 25 ug/dL (50-175) L Total Iron Binding Capacity 332 ug/dL (250-450) Percent Iron Saturation 8 % (15-50) L Unsaturated Iron Binding 307 ug/dL (112-346) Ferritin 29 NG/ML (8-388) Vitamin B12 Level 310 PG/ML (193-986) Thyroid Stimulating Hormone (TSH) 0.637 uiU/mL (0.358-3.740) Test 03/04/20 11:26 POC Whole Blood Glucose 88 MG/DL (74-106) Height (Feet): 5 Height (Inches): 2.00 Weight (Pounds): 106 Medications Current Medications Medications (Trade) Dose Ordered Sig/Breana Route PRN Reason Start Time Stop Time Status Last Admin Dose Admin Amlodipine Besylate (Norvasc) 5 mg Q12HR ORAL 03/04/20 09:40 04/03/20 09:39 03/04/20 09:43 Clonidine HCl (Catapres Tab) 0.1 mg EVERY 6 HOURS ORAL 03/03/20 18:00 06/01/20 17:59 03/04/20 12:20 Clonidine HCl (Catapres tab) 0.2 mg Q2H PRN ORAL For High Blood Pressure 03/04/20 09:30 06/02/20 09:29 Dextrose (Dextrose 50%) 25 ml Q30M PRN IV Hypoglycemia 03/03/20 16:30 06/01/20 16:29 Dextrose (Dextrose 50%) 50 ml Q30M PRN IV Hypoglycemia 03/03/20 16:30 06/01/20 16:29 Docusate Sodium (Colace) 100 mg TWICE A DAY ORAL 03/04/20 11:30 04/03/20 11:29 03/04/20 12:19 Insulin Aspart (NovoLOG) BEFORE MEALS AND HS SUBQ 03/03/20 16:30 06/01/20 16:29 03/03/20 17:12 Iron Sucrose 100 mg/Sodium Chloride 60 ml @ 240 mls/hr BEDTIME IV 03/04/20 21:00 03/08/20 21:14 Pantoprazole (Protonix) 40 mg DAILY ORAL 03/04/20 09:00 04/03/20 08:59 03/04/20 09:42 Polyethylene Glycol (Miralax) 17 gm BEDTIME ORAL 03/04/20 21:00 04/03/20 20:59 Sodium Chloride 1,000 ml @ 60 mls/hr [id number] IV 03/03/20 16:30 04/02/20 16:29 03/04/20 09:54 Vancomycin HCl (Vanco pharmacy to dose) 1 ea DAILY PRN MISC Per rx protocol 03/04/20 13:30 04/03/20 13:29 Vancomycin HCl 500 mg/Dextrose 110 ml @ 110 mls/hr Q12HR@0300,1500 IVPB 03/04/20 15:00 03/09/20 14:59 Assessment/Plan Problem List: (1) Pneumonia Assessment & Plan: abx as per ID reviewed Lungs: There is mild pulmonary edema. Faint airspace opacities within the upper lobes likely residual from prior multifocal infectious process. Pleural space: No evidence of pneumothorax. Probable small bilateral pleural effusions. Heart: Mild cardiac megaly. Cardiac pacer hardware again seen with leads in the right atrium and right ventricle. Mediastinum: No mediastinal widening or shift. Bones/joints: No acute osseous abnormality. Sternotomy wires are intact. IMPRESSION: Mild pulmonary edema and probable small bilateral pleural effusions. Findings likely associated with congestive heart failure or hypervolemia. Mild residual upper lobe airspace opacities from prior pneumonia. ICD Codes: J18.9 - Pneumonia, unspecified organism SNOMED: 944052825 Qualifiers: Qualified Codes: J18.9 - Pneumonia, unspecified organism (2) Anemia Assessment & Plan: prbc transfusion heme input noted exam stable no active bleeding will monitor trend labs mvi DAILY ESTIMATED NEEDS: Needs based on DM, wound/ 48kg 25-30 kcals/kg 7802-8336 total kcals 1.25-1.5 g protein/kg 60-72 g total protein 25-30 mL/kg 0663-9988 total fluid mLs NUTRITION DIAGNOSIS: Altered nutrition related lab values R/T h/o diabetes as evidence by admitted w/ c/o hypoglycemia (BG 31), now improved. CURRENT DIET:LOW NA, soft easy chew PO DIET RECOMMENDATIONS: Maintain LOW NA/ texture as tolerated ADDITIONAL RECOMMENDATIONS: * Calibrated bedscale wt * Monitor BGs, need for carb control diet * Rec added D5 w/ poor PO to prevent hypoglycemia * Snacks TID in b/w meals * F/up w/ WC eval- add MVI x 1 + Vit C 250mg QD for now * Monitor lytes, replete as needed (low K) ICD Codes: D64.9 - Anemia, unspecified SNOMED: 699200386 Qualifiers: Qualified Codes: D64.9 - Anemia, unspecified (3) Diabetes ICD Codes: E11.9 - Type 2 diabetes mellitus without complications SNOMED: 42935820 (4) HTN (hypertension) ICD Codes: I10 - Essential (primary) hypertension SNOMED: 92557260 (5) CHF exacerbation ICD Codes: I50.9 - Heart failure, unspecified SNOMED: 154367556, [id number] (6) Hypoglycemia ICD Codes: E16.2 - Hypoglycemia, unspecified SNOMED: 674423202 Diilp aBrbosa Mar 04, 2020 14:25
--- NOTE | 2020-03-04 14:55 | NUR ---
CASE MANAGEMENT: INITIAL REVIEW 70YR OLD FEMALE BIBA FROM [facility] AND [facility] CC: ALTERED LEVEL OF CONSCIOUSNESS SI: HYPOGLYCEMIA . ANEMIA . PNEUMONIA . AMS H/H 6.8/23.4 K+ 3.2 BG 152 CA+ 8.4 IS:IVF NS BOLUS X1 IV LEVAQUIN X1 IV PROTONIX X1 XRAY Chest 1vMild pulmonary edema and probable small bilateral pleural effusions. Findings likely associated with congestive heart failure or hypervolemia. Mild residual upper lobe airspace opacities from prior pneumonia. BLOOD TRANSFUSION X2 UNITS \: 2E TELE UNIT PLAN: TRANSFUSE NEURO CHECKS CASE MANAGEMENT: REVIEW SI: HYPOGLYCEMIA . ANEMIA . PNEUMONIA . AMS H/H 6.8/23.4 K+ 3.2 BG 152 CA+ 8.4 IS:IVF NS BOLUS X1 IV LEVAQUIN X1 IV PROTONIX X1 XRAY Chest 1vMild pulmonary edema and probable small bilateral pleural effusions. Findings likely associated with congestive heart failure or hypervolemia. Mild residual upper lobe airspace opacities from prior pneumonia. BLOOD TRANSFUSION X2 UNITS \: 2E TELE UNIT PLAN: CONT WOUND CARE
--- NOTE | 2020-03-04 15:04 | Cardiac Electrophysiology PN ---
Subjective Subjective [id number] Objective Last 24 Hour Vital Signs Date Time Temp Pulse Resp B/P (MAP) Pulse Ox O2 Delivery O2 Flow Rate FiO2 03/04/20 12:20 182/79 03/04/20 12:00 97.5 59 20 182/79 (113) 100 03/04/20 12:00 69 03/04/20 09:43 80 195/97 03/04/20 09:00 Room Air 03/04/20 08:00 97.7 80 20 195/97 (129) 95 03/04/20 08:00 62 03/04/20 05:39 167/77 03/04/20 04:00 98.6 66 19 160/74 (102) 97 03/04/20 04:00 66 03/04/20 00:27 152/77 03/04/20 00:00 99.7 61 20 152/77 (102) 96 03/04/20 00:00 65 03/03/20 21:00 Room Air 03/03/20 20:00 98.8 60 20 146/72 (96) 97 03/03/20 20:00 63 03/03/20 17:20 159/84 03/03/20 16:20 97.7 72 18 179/94 (122) 98 03/03/20 16:08 Room Air 03/03/20 15:45 Room Air Intake and Output 03/03/20 03/04/20 19:00 07:00 Intake Total 490 ml 150 ml Balance 490 ml 150 ml Intake Oral 120 ml 150 ml IV Total 120 ml Blood Product 250 ml # Voids 1 2 Laboratory Tests Test 03/03/20 16:51 03/03/20 20:17 03/04/20 05:10 03/04/20 05:22 POC Whole Blood Glucose 150 MG/DL (74-106) H 83 MG/DL (74-106) 88 MG/DL (74-106) White Blood Count 9.6 K/UL (4.8-10.8) Red Blood Count 3.95 M/UL (4.20-5.40) L Hemoglobin 10.4 G/DL (12.0-16.0) #L Hematocrit 34.1 % (37.0-47.0) #L Mean Corpuscular Volume 86 FL (80-99) Mean Corpuscular Hemoglobin 26.2 PG (27.0-31.0) L Mean Corpuscular Hemoglobin Concent 30.4 G/DL (32.0-36.0) L Red Cell Distribution Width 17.3 % (11.6-14.8) H Platelet Count 262 K/UL (150-450) Mean Platelet Volume 7.4 FL (6.5-10.1) Neutrophils (%) (Auto) 78.7 % (45.0-75.0) H Lymphocytes (%) (Auto) 11.4 % (20.0-45.0) L Monocytes (%) (Auto) 7.9 % (1.0-10.0) Eosinophils (%) (Auto) 1.3 % (0.0-3.0) Basophils (%) (Auto) 0.7 % (0.0-2.0) Differential Total Cells Counted 100 Neutrophils % (Manual) 77 % (45-75) H Lymphocytes % (Manual) 16 % (20-45) L Monocytes % (Manual) 5 % (1-10) Eosinophils % (Manual) 2 % (0-3) Basophils % (Manual) 0 % (0-2) Band Neutrophils 0 % (0-8) Other Cell Type Pathologist review Platelet Estimate Adequate Platelet Morphology Normal Polychromasia 1+ Hypochromasia 1+ Anisocytosis 1+ Reticulocyte Count 1.9 % (0.5-2.0) Sodium Level 143 MMOL/L (136-145) Potassium Level 3.2 MMOL/L (3.5-5.1) L Chloride Level 108 MMOL/L (98-107) H Carbon Dioxide Level 21 MMOL/L (21-32) Anion Gap 14 mmol/L (5-15) Blood Urea Nitrogen 12 mg/dL (7-18) Creatinine 0.9 MG/DL (0.55-1.30) Estimat Glomerular Filtration Rate > 60 mL/min (>60) Glucose Level 78 MG/DL (74-106) Calcium Level 8.4 MG/DL (8.5-10.1) L Iron Level 25 ug/dL (50-175) L Total Iron Binding Capacity 332 ug/dL (250-450) Percent Iron Saturation 8 % (15-50) L Unsaturated Iron Binding 307 ug/dL (112-346) Ferritin 29 NG/ML (8-388) Vitamin B12 Level 310 PG/ML (193-986) Thyroid Stimulating Hormone (TSH) 0.637 uiU/mL (0.358-3.740) Test 03/04/20 11:26 POC Whole Blood Glucose 88 MG/DL (74-106) Microbiology Date/Time Source Procedure Growth Status 03/03/20 06:52 Blood Blood Culture - Preliminary Resulted 03/03/20 06:35 Blood Blood Culture - Preliminary Resulted 03/03/20 09:00 Nasopharynx SARS-CoV-2 RdRp Gene Assay - Final Complete Dylon Frederick MD Mar 04, 2020 15:04
[2020-03-04] MEDS: Vancomycin 500mg/D5W 110ml IVPB SCH ×2 (15:59)
[2020-03-04 16:00] VITALS: BP 154/59
--- NOTE | 2020-03-04 16:30 | NUR ---
NURSE NOTES: Received critical lab result for troponin 0.150. Will inform Dr. Frederick.
--- NOTE | 2020-03-04 17:01 | NUR ---
NURSE NOTES: Dr. Frederick aware of troponin 0.150. No new orders.
--- NOTE | 2020-03-04 17:15 | Consultation ---
DATE OF CONSULTATION: 03/04/2020 ENDOCRINOLOGY CONSULTATION CONSULTING PHYSICIAN: Russ Li MD REFERRING PHYSICIAN: Chong Rodriguez DO REASON FOR CONSULTATION: Hypoglycemia and history of anemia. HISTORY OF PRESENT ILLNESS: The patient is a 70-year-old woman, who was brought from [facility] due to hypoglycemia. The patient is a poor historian. No further details are available. She does have history of diabetes and I am not sure what kind of medication she is on. She was treated with dextrose, glucose stabilized, and I was called to manage diabetes. PAST MEDICAL HISTORY: 1. Hypertension. 2. Diabetes. 3. CHF. FAMILY HISTORY: Noncontributory. SOCIAL HISTORY: No smoking, alcohol, or drug use. REVIEW OF SYSTEMS: Otherwise negative. LABORATORY VALUES: WBC 10, hemoglobin 6, hematocrit 22, platelets of 248,000. Sodium 139, potassium 3.8, chloride 106, bicarb 21, BUN 18, creatinine 1.0 glucose 157. Calcium of 8.4. PHYSICAL EXAMINATION: VITAL SIGNS: Blood pressure 166/77, heart rate 87, temperature 98.6. HEENT: Pupils are equal and reactive to light. Sclerae are anicteric. NECK: No JVD. HEART: Regular. LUNGS: Clear. ABDOMEN: Positive bowel sounds. EXTREMITIES: No clubbing, cyanosis, or edema. DIAGNOSES: 1. Hypoglycemia. 2. Underlying diabetes. 3. Severe anemia. PLAN: 1. Continue dextrose infusion and follow up with GI recommendation. 2. Glucose monitoring without insulin coverage. 3. Hypoglycemia protocol has been ordered. Thank you for the courtesy of this consultation. Russ Li M.D. DR: SOURAV/SONYA JOB#: [id number] CC: KEESHA
--- NOTE | 2020-03-04 17:51 | NUR ---
NURSE NOTES:WOUND CARE NOTES:Pt presented on admission with Pressure injury Sacrum,R and L Buttocks. Base of woud is purple with surrounding maroon borders without induration or fluctuance. At L buttocks base of wound is maroon without induration or fluctuance. Non-blanching erythema periwound . Pt denied tenderness when affected area palpated. Pt educated on wound prevention. Encouraged to frequently turn while in bed . Pt verbalized feeling weak. Pt has Purewick but also requests bedpan when needed. Both heels are soft but both heels are easily blanchable. Tx.Plan: Apply Moisture Barrier Paste to buttocks. Cover with Optifoam Drsg. Change every 3 days and prn. Apply Cavilon Skin Barrier to both heels. Cover each heel with Optifoam drsgs. Changee very 7 days and prn. Reposition at least every 2hours or as tolerated. Off-load heels with Pillow.
--- NOTE | 2020-03-04 19:17 | NUR ---
HAND-OFF: Report given to SOURAV Duggan.
[2020-03-04 20:00] VITALS: BP 152/70
[2020-03-04] MEDS: Iron Sucrose 100 MG in NS 55 ML IV SCH (21:17)
[2020-03-04] MEDS: Miralax 17gm pkt ORAL SCH (21:17)
[2020-03-05] VITALS: BP 143/59
[2020-03-05] MEDS: Vancomycin 500mg/D5W 110ml IVPB SCH ×4 (02:13→14:49)
--- NOTE | 2020-03-05 02:30 | Consultation ---
DATE OF CONSULTATION: 03/04/2020 REFERRING PHYSICIAN: Chong Rodriguez DO REASON FOR THE CONSULTATION: Evaluation of the patient's pacemaker as well as history of heart surgery and accelerated hypertension. HISTORY OF PRESENT ILLNESS: Patient is a 70-year-old lady with history of hypertension, history of left-sided dual-chamber pacemaker, as well as history of cardiac surgery, who was found at the board and care by paramedics and the blood sugar was only 31. The patient received D10 and Accu-Chek improved. The patient was altered at that time and she was diabetic. The patient was then brought to the hospital and was noticed to have hemoglobin of 6.8 with no hemolysis and no evidence of . A cardiology consultation was obtained for further evaluation and management. REVIEW OF SYSTEMS: Cannot be obtained at this time. PAST MEDICAL HISTORY: As mentioned above. FAMILY HISTORY: Noncontributory. SOCIAL HISTORY: prison resident. Does not smoke or drink alcohol. PHYSICAL EXAMINATION: VITAL SIGNS: Blood pressure 182/79, pulse is 59, respirations 18, and temperature 97.5. NECK: No JVD. LUNGS: Clear. CARDIOVASCULAR: Sternotomy scar is intact. Left-sided pacemaker is in place. ABDOMEN: Soft. EXTREMITIES: No pitting edema. LABORATORY AND DIAGNOSTIC DATA: Her labs show white count of 9.6; hemoglobin was 6.8, after transfusion is 10.4; hematocrit 34; and platelet count is 262. Sodium 142, potassium 3.2, BUN of 12, creatinine 0.9, and glucose of 78. INR is 1. ASSESSMENT AND PLAN: 1. Status post dual-chamber left-sided pacemaker. We will try to find the brand of the pacemaker and interrogate it for further evaluation. 2. Altered mental status, likely due to hypoglycemia as the blood glucose was only 31, but improved. 3. Accelerated hypertension with blood pressure in the 190s. I will add amlodipine 5 mg b.i.d. as well as clonidine 0.1 mg every 6 hours as well as p.r.n. clonidine to her medical regimen. 4. Status post heart surgery, the nature of which is not clear. I am not sure if this was bypass or valve surgery. We will try to get the records from the detention. 5. History of dementia. 6. Severe anemia. The patient received blood transfusion. Further evaluation by Dr. Willoughby as well as Dr. Mcmullen pending. Thank you very much for allowing me to participate in the care of this patient. Please do not hesitate to contact me for any questions regarding my evaluation. Dylon Frederick M.D. DR: BALBINA JOB#: [id number] CC:
[2020-03-05 04:00] VITALS: BP 159/65
[2020-03-05] MEDS: NovoLOG Insulin Flexpen SUBQ SCH ×4 (05:42→22:22)
--- NOTE | 2020-03-05 06:07 | General Progress Note ---
Assessment/Plan Problem List: (1) Hypoglycemia ICD Codes: E16.2 - Hypoglycemia, unspecified SNOMED: 866785960 (2) Diabetes ICD Codes: E11.9 - Type 2 diabetes mellitus without complications SNOMED: 13637332 (3) Pneumonia ICD Codes: J18.9 - Pneumonia, unspecified organism SNOMED: 862276508 Qualifiers: Qualified Codes: J18.9 - Pneumonia, unspecified organism (4) Anemia ICD Codes: D64.9 - Anemia, unspecified SNOMED: 222026444 Qualifiers: Qualified Codes: D64.9 - Anemia, unspecified (5) HTN (hypertension) ICD Codes: I10 - Essential (primary) hypertension SNOMED: 21016783 (6) CHF exacerbation ICD Codes: I50.9 - Heart failure, unspecified SNOMED: 981368623, 13700306458902 Status: unchanged Assessment/Plan: continue glucose monitoring no need for dextrose for now hypoglycemia protocol in order continue to hold diabetic medications Subjective Allergies: Coded Allergies: No Known Allergies (Unverified , 01/09/20) Subjective events noted glucose values in low normal range without hypoglycemia Item Value Date Time Bedside Blood Glucose 96 mg/dl 03/05/20 0542 Bedside Blood Glucose 92 mg/dl 03/04/20 2100 Bedside Blood Glucose 118 mg/dl 03/04/20 1630 Bedside Blood Glucose 88 mg/dl 03/04/20 1130 Bedside Blood Glucose 88 mg/dl 03/04/20 0630 Objective Last 24 Hour Vital Signs Date Time Temp Pulse Resp B/P (MAP) Pulse Ox O2 Delivery O2 Flow Rate FiO2 03/05/20 05:30 159/65 03/05/20 04:00 97.7 60 19 159/65 (96) 95 03/05/20 04:00 62 03/05/20 00:16 143/59 03/05/20 00:00 61 03/05/20 00:00 98.2 60 19 143/59 (87) 95 03/04/20 21:18 60 152/76 03/04/20 21:00 Room Air 03/04/20 20:00 60 03/04/20 20:00 98.2 60 19 152/70 (97) 99 03/04/20 17:57 154/59 03/04/20 16:00 97.7 60 20 154/59 (90) 99 03/04/20 16:00 62 03/04/20 12:20 182/79 03/04/20 12:00 97.5 59 20 182/79 (113) 100 03/04/20 12:00 69 03/04/20 09:43 80 195/97 03/04/20 09:00 Room Air 03/04/20 08:00 97.7 80 20 195/97 (129) 95 03/04/20 08:00 62 Intake and Output 03/04/20 03/05/20 19:00 07:00 Intake Total 118 ml 200 ml Balance 118 ml 200 ml Intake Oral 118 ml 200 ml # Voids 2 4 Laboratory Tests 03/04/20 11:26: POC Whole Blood Glucose 88 03/04/20 15:30: Troponin I 0.150H 03/04/20 21:16: POC Whole Blood Glucose 92 Height (Feet): 5 Height (Inches): 2.00 Weight (Pounds): 106 General Appearance: no apparent distress Neck: normal alignment Cardiovascular: normal rate Respiratory/Chest: lungs clear Abdomen: normal bowel sounds Pelvis: normal external exam Objective Current Medications Medications (Trade) Dose Ordered Sig/Breana Route PRN Reason Start Time Stop Time Status Last Admin Dose Admin Amlodipine Besylate (Norvasc) 5 mg Q12HR ORAL 03/04/20 09:40 04/03/20 09:39 03/04/20 21:18 Ascorbic Acid (Vitamin C) 250 mg DAILY ORAL 03/05/20 09:00 04/04/20 08:59 Clonidine HCl (Catapres Tab) 0.1 mg EVERY 6 HOURS ORAL 03/03/20 18:00 06/01/20 17:59 03/05/20 05:30 Clonidine HCl (Catapres tab) 0.2 mg Q2H PRN ORAL For High Blood Pressure 03/04/20 09:30 06/02/20 09:29 Dextrose (Dextrose 50%) 25 ml Q30M PRN IV Hypoglycemia 03/03/20 16:30 06/01/20 16:29 Dextrose (Dextrose 50%) 50 ml Q30M PRN IV Hypoglycemia 03/03/20 16:30 06/01/20 16:29 Docusate Sodium (Colace) 100 mg TWICE A DAY ORAL 03/04/20 11:30 04/03/20 11:29 03/04/20 17:57 Insulin Aspart (NovoLOG) BEFORE MEALS AND HS SUBQ 03/03/20 16:30 06/01/20 16:29 03/03/20 17:12 Iron Sucrose 100 mg/Sodium Chloride 60 ml @ 240 mls/hr BEDTIME IV 03/04/20 21:00 03/08/20 21:14 03/04/20 21:17 Multivitamins (Multivitamins) 1 tab DAILY ORAL 03/05/20 09:00 04/04/20 08:59 Pantoprazole (Protonix) 40 mg DAILY ORAL 03/04/20 09:00 04/03/20 08:59 03/04/20 09:42 Polyethylene Glycol (Miralax) 17 gm BEDTIME ORAL 03/04/20 21:00 04/03/20 20:59 03/04/20 21:17 Sodium Chloride 1,000 ml @ 60 mls/hr [id number] IV 03/03/20 16:30 04/02/20 16:29 03/05/20 02:12 Vancomycin HCl (Vanco pharmacy to dose) 1 ea DAILY PRN MISC Per rx protocol 03/04/20 13:30 04/03/20 13:29 Vancomycin HCl 500 mg/Dextrose 110 ml @ 110 mls/hr Q12HR@0300,1500 IVPB 03/04/20 15:00 03/09/20 14:59 03/05/20 02:13 Russ Li MD Mar 05, 2020 06:07
--- NOTE | 2020-03-05 06:26 | Hematology/Onc Progress Note ---
Assessment/Plan Assessment/Plan Assessment and Recs # Anemia of iron deficiency, upon admission was 6.8-->9 after transfusion --> anemia panel has been ordered, occult blood has been ordered, ferritin low --> no evidence of hemolysis --> transfuse on a prn basis --> hgb goal >7 --> iv iron started --> as per gi eval # Hypoglycemia --> as per endo # Pneumonia, Mild residual upper lobe airspace opacities from prior pneumonia. --> on abx -> cxr imaging prn # Hypotension --> ivfs # Aflutter, some PVCS, paced no acute ischemic -> as per cards --> pacemaker per [place] # Sternotomy wires, pacemaker, mild opacities seen on prior CXR --> prior hx of surgery # Dvt ppx scds Appreciate consultation and batool Rn Subjective Cardiovascular: Denies: no symptoms, chest pain, edema, irregular heart rate, lightheadedness, palpitations, syncope, other Respiratory: Denies: no symptoms, cough, shortness of breath, SOB with excertion, SOB at rest, sputum, wheezing, other Gastrointestinal/Abdominal: Denies: no symptoms, abdomen distended, abdominal pain, black stools, tarry stools, blood in stool, constipated, diarrhea, difficulty swallowing, nausea, poor appetite, poor fluid intake, rectal bleeding , vomiting, other Genitourinary: Denies: no symptoms, burning, discharge, frequency, flank pain, hematuria, incontinence, pain, urgency, other Neurologic/Psychiatric: Denies: no symptoms, anxiety, depressed, emotional problems, headache, numbness, paresthesia, pre-existing deficit, seizure, tingling, tremors, weakness, other Endocrine: Denies: no symptoms, excessive sweating, flushing, intolerance to cold, intolerance to heat, increased hunger, increased thirst, increased urine, unexplained weight gain, unexplained weight loss, other Allergies: Coded Allergies: No Known Allergies (Unverified , 01/09/20) Subjective 03/05 awake, no bleeding, on iv iron, hgb improved, batool rn Objective Objective Current Medications Medications (Trade) Dose Ordered Sig/Breana Route PRN Reason Start Time Stop Time Status Last Admin Dose Admin Amlodipine Besylate (Norvasc) 5 mg Q12HR ORAL 03/04/20 09:40 04/03/20 09:39 03/04/20 21:18 Ascorbic Acid (Vitamin C) 250 mg DAILY ORAL 03/05/20 09:00 04/04/20 08:59 Clonidine HCl (Catapres Tab) 0.1 mg EVERY 6 HOURS ORAL 03/03/20 18:00 06/01/20 17:59 03/05/20 05:30 Clonidine HCl (Catapres tab) 0.2 mg Q2H PRN ORAL For High Blood Pressure 03/04/20 09:30 06/02/20 09:29 Dextrose (Dextrose 50%) 25 ml Q30M PRN IV Hypoglycemia 03/03/20 16:30 06/01/20 16:29 Dextrose (Dextrose 50%) 50 ml Q30M PRN IV Hypoglycemia 03/03/20 16:30 06/01/20 16:29 Docusate Sodium (Colace) 100 mg TWICE A DAY ORAL 03/04/20 11:30 04/03/20 11:29 03/04/20 17:57 Insulin Aspart (NovoLOG) BEFORE MEALS AND HS SUBQ 03/03/20 16:30 06/01/20 16:29 03/03/20 17:12 Iron Sucrose 100 mg/Sodium Chloride 60 ml @ 240 mls/hr BEDTIME IV 03/04/20 21:00 03/08/20 21:14 03/04/20 21:17 Multivitamins (Multivitamins) 1 tab DAILY ORAL 03/05/20 09:00 04/04/20 08:59 Pantoprazole (Protonix) 40 mg DAILY ORAL 03/04/20 09:00 04/03/20 08:59 03/04/20 09:42 Polyethylene Glycol (Miralax) 17 gm BEDTIME ORAL 03/04/20 21:00 04/03/20 20:59 03/04/20 21:17 Sodium Chloride 1,000 ml @ 60 mls/hr [id number] IV 03/03/20 16:30 04/02/20 16:29 03/05/20 02:12 Vancomycin HCl (Vanco pharmacy to dose) 1 ea DAILY PRN MISC Per rx protocol 03/04/20 13:30 04/03/20 13:29 Vancomycin HCl 500 mg/Dextrose 110 ml @ 110 mls/hr Q12HR@0300,1500 IVPB 03/04/20 15:00 03/09/20 14:59 03/05/20 02:13 Last 24 Hour Vital Signs Date Time Temp Pulse Resp B/P (MAP) Pulse Ox O2 Delivery O2 Flow Rate FiO2 03/05/20 05:30 159/65 03/05/20 04:00 97.7 60 19 159/65 (96) 95 03/05/20 04:00 62 03/05/20 00:16 143/59 03/05/20 00:00 61 03/05/20 00:00 98.2 60 19 143/59 (87) 95 03/04/20 21:18 60 152/76 03/04/20 21:00 Room Air 03/04/20 20:00 60 03/04/20 20:00 98.2 60 19 152/70 (97) 99 03/04/20 17:57 154/59 03/04/20 16:00 97.7 60 20 154/59 (90) 99 03/04/20 16:00 62 03/04/20 12:20 182/79 03/04/20 12:00 97.5 59 20 182/79 (113) 100 03/04/20 12:00 69 03/04/20 09:43 80 195/97 03/04/20 09:00 Room Air 03/04/20 08:00 97.7 80 20 195/97 (129) 95 03/04/20 08:00 62 03/04/20 05:39 167/77 03/04/20 04:00 98.6 66 19 160/74 (102) 97 03/04/20 04:00 66 03/04/20 00:27 152/77 03/04/20 00:00 99.7 61 20 152/77 (102) 96 03/04/20 00:00 65 03/03/20 21:00 Room Air 03/03/20 20:00 98.8 60 20 146/72 (96) 97 03/03/20 20:00 63 03/03/20 17:20 159/84 03/03/20 16:20 97.7 72 18 179/94 (122) 98 03/03/20 16:08 Room Air 03/03/20 15:45 Room Air 03/03/20 14:00 97.9 68 20 161/93 (115) 100 03/03/20 13:58 98.9 78 18 142/78 98 Room Air 76 03/03/20 12:14 98.0 72 20 03/03/20 12:00 98.6 72 20 148/82 100 Room Air 74 03/03/20 10:00 98.6 80 19 150/72 100 Room Air 78 03/03/20 09:45 98.6 78 19 148/72 100 Room Air 76 03/03/20 08:30 98.7 79 19 145/62 100 Room Air 03/03/20 06:26 79 19 154/53 100 Room Air 03/03/20 06:26 79 19 Room Air Intake and Output 03/04/20 03/05/20 19:00 07:00 Intake Total 118 ml 200 ml Balance 118 ml 200 ml Intake Oral 118 ml 200 ml # Voids 2 4 Labs Test 03/03/20 06:31 03/03/20 06:52 03/03/20 06:55 03/03/20 14:02 White Blood Count 10.4 K/UL (4.8-10.8) Red Blood Count 2.78 M/UL (4.20-5.40) Hemoglobin 6.8 G/DL (12.0-16.0) Hematocrit 23.4 % (37.0-47.0) Mean Corpuscular Volume 84 FL (80-99) Mean Corpuscular Hemoglobin 24.5 PG (27.0-31.0) Mean Corpuscular Hemoglobin Concent 29.0 G/DL (32.0-36.0) Red Cell Distribution Width 18.6 % (11.6-14.8) Platelet Count 348 K/UL (150-450) Mean Platelet Volume 7.4 FL (6.5-10.1) Neutrophils (%) (Auto) % (45.0-75.0) Lymphocytes (%) (Auto) % (20.0-45.0) Monocytes (%) (Auto) % (1.0-10.0) Eosinophils (%) (Auto) % (0.0-3.0) Basophils (%) (Auto) % (0.0-2.0) Differential Total Cells Counted 100 Neutrophils % (Manual) 87 % (45-75) Lymphocytes % (Manual) 10 % (20-45) Monocytes % (Manual) 3 % (1-10) Eosinophils % (Manual) 0 % (0-3) Basophils % (Manual) 0 % (0-2) Band Neutrophils 0 % (0-8) Platelet Estimate Adequate Platelet Morphology Normal Polychromasia 1+ Hypochromasia 2+ Anisocytosis 1+ Prothrombin Time 11.1 SEC (9.30-11.50) Prothromb Time International Ratio 1.0 (0.9-1.1) Activated Partial Thromboplast Time 24 SEC (23-33) Sodium Level 139 MMOL/L (136-145) Potassium Level 3.2 MMOL/L (3.5-5.1) Chloride Level 106 MMOL/L (98-107) Carbon Dioxide Level 21 MMOL/L (21-32) Anion Gap 13 mmol/L (5-15) Blood Urea Nitrogen 18 mg/dL (7-18) Creatinine 1.0 MG/DL (0.55-1.30) Estimat Glomerular Filtration Rate 54.7 mL/min (>60) Glucose Level 157 MG/DL (74-106) Calcium Level 8.4 MG/DL (8.5-10.1) Total Bilirubin 0.4 MG/DL (0.2-1.0) Aspartate Amino Transf (AST/SGOT) 27 U/L (15-37) Alanine Aminotransferase (ALT/SGPT) 15 U/L (12-78) Alkaline Phosphatase 74 U/L (46-116) Total Protein 6.9 G/DL (6.4-8.2) Albumin 3.4 G/DL (3.4-5.0) Globulin 3.5 g/dL Albumin/Globulin Ratio 1.0 (1.0-2.7) Lactic Acid Level 1.30 mmol/L (0.4-2.0) Urine Color Pale yellow Urine Appearance Clear Urine pH 5 (4.5-8.0) Urine Specific [place] 1.020 (1.005-1.035) Urine Protein 2+ (NEGATIVE) Urine Glucose (UA) Negative (NEGATIVE) Urine Ketones 2+ (NEGATIVE) Urine Blood Negative (NEGATIVE) Urine Nitrite Negative (NEGATIVE) Urine Bilirubin Negative (NEGATIVE) Urine Urobilinogen Normal MG/DL (0.0-1.0) Urine Leukocyte Esterase 1+ (NEGATIVE) Urine RBC 0-2 /HPF (0 - 2) Urine WBC 0-2 /HPF (0 - 2) Urine Squamous Epithelial Cells Occasional /LPF Urine Bacteria Occasional /HPF (NONE) POC Whole Blood Glucose 75 MG/DL (74-106) Test 03/03/20 16:51 03/03/20 20:17 03/04/20 05:10 03/04/20 05:22 POC Whole Blood Glucose 150 MG/DL (74-106) 83 MG/DL (74-106) 88 MG/DL (74-106) White Blood Count 9.6 K/UL (4.8-10.8) Red Blood Count 3.95 M/UL (4.20-5.40) Hemoglobin 10.4 G/DL (12.0-16.0) Hematocrit 34.1 % (37.0-47.0) Mean Corpuscular Volume 86 FL (80-99) Mean Corpuscular Hemoglobin 26.2 PG (27.0-31.0) Mean Corpuscular Hemoglobin Concent 30.4 G/DL (32.0-36.0) Red Cell Distribution Width 17.3 % (11.6-14.8) Platelet Count 262 K/UL (150-450) Mean Platelet Volume 7.4 FL (6.5-10.1) Neutrophils (%) (Auto) 78.7 % (45.0-75.0) Lymphocytes (%) (Auto) 11.4 % (20.0-45.0) Monocytes (%) (Auto) 7.9 % (1.0-10.0) Eosinophils (%) (Auto) 1.3 % (0.0-3.0) Basophils (%) (Auto) 0.7 % (0.0-2.0) Differential Total Cells Counted 100 Neutrophils % (Manual) 77 % (45-75) Lymphocytes % (Manual) 16 % (20-45) Monocytes % (Manual) 5 % (1-10) Eosinophils % (Manual) 2 % (0-3) Basophils % (Manual) 0 % (0-2) Band Neutrophils 0 % (0-8) Other Cell Type Pathologist review Platelet Estimate Adequate Platelet Morphology Normal Polychromasia 1+ Hypochromasia 1+ Anisocytosis 1+ Reticulocyte Count 1.9 % (0.5-2.0) Sodium Level 143 MMOL/L (136-145) Potassium Level 3.2 MMOL/L (3.5-5.1) Chloride Level 108 MMOL/L (98-107) Carbon Dioxide Level 21 MMOL/L (21-32) Anion Gap 14 mmol/L (5-15) Blood Urea Nitrogen 12 mg/dL (7-18) Creatinine 0.9 MG/DL (0.55-1.30) Estimat Glomerular Filtration Rate > 60 mL/min (>60) Glucose Level 78 MG/DL (74-106) Calcium Level 8.4 MG/DL (8.5-10.1) Iron Level 25 ug/dL (50-175) Total Iron Binding Capacity 332 ug/dL (250-450) Percent Iron Saturation 8 % (15-50) Unsaturated Iron Binding 307 ug/dL (112-346) Ferritin 29 NG/ML (8-388) Vitamin B12 Level 310 PG/ML (193-986) Thyroid Stimulating Hormone (TSH) 0.637 uiU/mL (0.358-3.740) Test 03/04/20 11:26 03/04/20 15:30 03/04/20 21:16 POC Whole Blood Glucose 88 MG/DL (74-106) 92 MG/DL (74-106) Troponin I 0.150 ng/mL (0.000-0.056) Height (Feet): 5 Height (Inches): 2.00 Weight (Pounds): 106 Tobin Willoughby MD Mar 05, 2020 06:26
[2020-03-05 07:07] LABS: BASOPHILS % (AUTO) 1.3 % (0.0-2.0); EOSINOPHILS % (AUTO) 3.7 % (0.0-3.0); HEMATOCRIT 32.9 % (37.0-47.0); LYMPHOCYTES % (AUTO) 12.7 % (20.0-45.0); MEAN CORPUSCULAR VOLUME 86 FL (80-99); MONOCYTES % (AUTO) 7.7 % (1.0-10.0); NEUTROPHILS % (AUTO) 74.7 % (45.0-75.0); PLATELET COUNT 264 K/UL (150-450); RED BLOOD COUNT 3.81 M/UL (4.20-5.40); RED CELL DISTRIBUTION WIDTH 16.9 % (11.6-14.8); WHITE BLOOD COUNT 8.4 K/UL (4.8-10.8)
--- NOTE | 2020-03-05 07:07 | NUR ---
NURSE NOTES: Received report from Tosin Donnelly RN. Pt in stable condition, denies pain. Will continue plan of care and close monitoring. Addendum: 03/05/20 at 0709 by Olga Lidia Liang RN DATE/TIME CORRECTION: RECEIVED REPORT 03/04/2020 @ 3170
--- NOTE | 2020-03-05 07:10 | NUR ---
HAND-OFF: Report given to Chio Carter RN. Pt in stable condition. Plan of care endorsed.
[2020-03-05 07:11] LABS: ANION GAP 10 mmol/L (5-15); BLOOD UREA NITROGEN 9 mg/dL (7-18); CALCIUM 8.4 MG/DL (8.5-10.1); CARBON DIOXIDE 24 MMOL/L (21-32); CHLORIDE 109 MMOL/L (98-107); CREATININE 0.8 MG/DL (0.55-1.30); POTASSIUM 3.3 MMOL/L (3.5-5.1); SODIUM 143 MMOL/L (136-145)
--- NOTE | 2020-03-05 07:58 | NUR ---
NURSE NOTES: Received report from SOURAV Duggan. Pt sleeping comfortably in bed. No s/s of acute respiratory and cardiac distress. Currently on room air. IVF infusing on right FA. Bed in low position, side rails up x3 and call light within reach. Will continue to monitor.
[2020-03-05 08:00] VITALS: BP 160/71
[2020-03-05] MEDS: Docusate 100mg cap ORAL SCH ×2 (08:52→17:29)
[2020-03-05] MEDS ORDERED: Ascorbic Acid 500mg tab ORAL SCH (09:00)
--- NOTE | 2020-03-05 09:48 | General Progress Note ---
Assessment/Plan Problem List: (1) CHF exacerbation ICD Codes: I50.9 - Heart failure, unspecified SNOMED: 115051208, [id number] (2) HTN (hypertension) ICD Codes: I10 - Essential (primary) hypertension SNOMED: 60073579 (3) Diabetes ICD Codes: E11.9 - Type 2 diabetes mellitus without complications SNOMED: 39752091 (4) Anemia ICD Codes: D64.9 - Anemia, unspecified SNOMED: 123611319 Qualifiers: Qualified Codes: D64.9 - Anemia, unspecified Status: unchanged Assessment/Plan: iv iron fu H&H fu stool ob bowel regimen manager social responsibility to locate the family for consent Subjective ROS Limited/Unobtainable: No Allergies: Coded Allergies: No Known Allergies (Unverified , 01/09/20) Objective Last 24 Hour Vital Signs Date Time Temp Pulse Resp B/P (MAP) Pulse Ox O2 Delivery O2 Flow Rate FiO2 03/05/20 08:52 65 160/71 03/05/20 08:00 97.5 65 18 160/71 (100) 95 03/05/20 05:30 159/65 03/05/20 04:00 97.7 60 19 159/65 (96) 95 03/05/20 04:00 62 03/05/20 00:16 143/59 03/05/20 00:00 61 03/05/20 00:00 98.2 60 19 143/59 (87) 95 03/04/20 21:18 60 152/76 03/04/20 21:00 Room Air 03/04/20 20:00 60 03/04/20 20:00 98.2 60 19 152/70 (97) 99 03/04/20 17:57 154/59 03/04/20 16:00 97.7 60 20 154/59 (90) 99 03/04/20 16:00 62 03/04/20 12:20 182/79 03/04/20 12:00 97.5 59 20 182/79 (113) 100 03/04/20 12:00 69 Intake and Output 03/04/20 03/05/20 19:00 07:00 Intake Total 118 ml 200 ml Balance 118 ml 200 ml Intake Oral 118 ml 200 ml # Voids 2 4 Laboratory Tests 03/04/20 11:26: POC Whole Blood Glucose 88 03/04/20 15:30: Troponin I 0.150H 03/04/20 21:16: POC Whole Blood Glucose 92 03/05/20 06:13: White Blood Count 8.4, Red Blood Count 3.81L, Hemoglobin 10.0L, Hematocrit 32.9L , Mean Corpuscular Volume 86, Mean Corpuscular Hemoglobin 26.3L, Mean Corpuscular Hemoglobin Concent 30.5L, Red Cell Distribution Width 16.9H, Platelet Count 264, Mean Platelet Volume 7.0, Neutrophils (%) (Auto) 74.7, Lymphocytes (%) (Auto) 12.7L, Monocytes (%) (Auto) 7.7, Eosinophils (%) (Auto) 3.7H, Basophils (%) (Auto) 1.3, Sodium Level 143, Potassium Level 3.3L, Chloride Level 109H, Carbon Dioxide Level 24, Anion Gap 10, Blood Urea Nitrogen 9, Creatinine 0.8, Estimat Glomerular Filtration Rate > 60, Glucose Level 101, Calcium Level 8.4L Height (Feet): 5 Height (Inches): 2.00 Weight (Pounds): 106 General Appearance: no apparent distress EENT: normal ENT inspection Neck: supple Cardiovascular: normal rate Respiratory/Chest: decreased breath sounds Abdomen: normal bowel sounds, non tender, soft Extremities: non-tender Jarek Mcmullen MD Mar 05, 2020 09:48
--- NOTE | 2020-03-05 09:52 | NUR ---
WING COVERER NOTE Per chart review, pt [facility]. SW is unable to locate the facility. SW met w/ pt to clarify her current living situation. Pt reports she is residing w/ two friends at [address] [place] [address]. Pt has two sons living in [place]. Pt reports she occasionally communicates w/ her sons. Pt was unable to recall the contact information. Pt reports all contact numbers are in her pulse but she forgot to bring it with her. PT reports she is ambulatory w/o DMEs and independent w/ ADLs. Pt is requesting to go home. SW encouraged pt to wait for MD to clear her medically. ALLISON spoke w/ Cande from [facility] office [phone] that she is not conserved. ALLISON spoke w/ Officer Balaji from [facility] [phone] that pt is not reported as missing.
--- NOTE | 2020-03-05 09:54 | Surgery Progress Note ---
Surgery Progress Note Subjective Additional Comments no acute events labs okay tolerating diet no n/v/f/c Objective Last 24 Hour Vital Signs Date Time Temp Pulse Resp B/P (MAP) Pulse Ox O2 Delivery O2 Flow Rate FiO2 03/05/20 08:52 65 160/71 03/05/20 08:00 97.5 65 18 160/71 (100) 95 03/05/20 05:30 159/65 03/05/20 04:00 97.7 60 19 159/65 (96) 95 03/05/20 04:00 62 03/05/20 00:16 143/59 03/05/20 00:00 61 03/05/20 00:00 98.2 60 19 143/59 (87) 95 03/04/20 21:18 60 152/76 03/04/20 21:00 Room Air 03/04/20 20:00 60 03/04/20 20:00 98.2 60 19 152/70 (97) 99 03/04/20 17:57 154/59 03/04/20 16:00 97.7 60 20 154/59 (90) 99 03/04/20 16:00 62 03/04/20 12:20 182/79 03/04/20 12:00 97.5 59 20 182/79 (113) 100 03/04/20 12:00 69 I&O Intake and Output 03/04/20 03/05/20 19:00 07:00 Intake Total 118 ml 200 ml Balance 118 ml 200 ml Intake Oral 118 ml 200 ml # Voids 2 4 Dressing: other Wound: other Drains: other Cardiovascular: RSR Respiratory: decreased breath sounds Abdomen: soft, non-tender, present bowel sounds Extremities: no edema, no tenderness, no cyanosis Laboratory Tests Test 03/04/20 11:26 03/04/20 15:30 03/04/20 21:16 03/05/20 06:13 POC Whole Blood Glucose 88 MG/DL (74-106) 92 MG/DL (74-106) Troponin I 0.150 ng/mL (0.000-0.056) White Blood Count 8.4 K/UL (4.8-10.8) Red Blood Count 3.81 M/UL (4.20-5.40) L Hemoglobin 10.0 G/DL (12.0-16.0) L Hematocrit 32.9 % (37.0-47.0) L Mean Corpuscular Volume 86 FL (80-99) Mean Corpuscular Hemoglobin 26.3 PG (27.0-31.0) L Mean Corpuscular Hemoglobin Concent 30.5 G/DL (32.0-36.0) L Red Cell Distribution Width 16.9 % (11.6-14.8) H Platelet Count 264 K/UL (150-450) Mean Platelet Volume 7.0 FL (6.5-10.1) Neutrophils (%) (Auto) 74.7 % (45.0-75.0) Lymphocytes (%) (Auto) 12.7 % (20.0-45.0) L Monocytes (%) (Auto) 7.7 % (1.0-10.0) Eosinophils (%) (Auto) 3.7 % (0.0-3.0) H Basophils (%) (Auto) 1.3 % (0.0-2.0) Sodium Level 143 MMOL/L (136-145) Potassium Level 3.3 MMOL/L (3.5-5.1) L Chloride Level 109 MMOL/L (98-107) H Carbon Dioxide Level 24 MMOL/L (21-32) Anion Gap 10 mmol/L (5-15) Blood Urea Nitrogen 9 mg/dL (7-18) Creatinine 0.8 MG/DL (0.55-1.30) Estimat Glomerular Filtration Rate > 60 mL/min (>60) Glucose Level 101 MG/DL (74-106) Calcium Level 8.4 MG/DL (8.5-10.1) L Plan Problems: (1) Pneumonia Assessment & Plan: abx as per ID reviewed Lungs: There is mild pulmonary edema. Faint airspace opacities within the upper lobes likely residual from prior multifocal infectious process. Pleural space: No evidence of pneumothorax. Probable small bilateral pleural effusions. Heart: Mild cardiac megaly. Cardiac pacer hardware again seen with leads in the right atrium and right ventricle. Mediastinum: No mediastinal widening or shift. Bones/joints: No acute osseous abnormality. Sternotomy wires are intact. IMPRESSION: Mild pulmonary edema and probable small bilateral pleural effusions. Findings likely associated with congestive heart failure or hypervolemia. Mild residual upper lobe airspace opacities from prior pneumonia. (2) Anemia Assessment & Plan: prbc transfusion heme input noted exam stable no active bleeding will monitor trend labs mvi DAILY ESTIMATED NEEDS: Needs based on DM, wound/ 48kg 25-30 kcals/kg 2092-3881 total kcals 1.25-1.5 g protein/kg 60-72 g total protein 25-30 mL/kg 8234-3388 total fluid mLs NUTRITION DIAGNOSIS: Altered nutrition related lab values R/T h/o diabetes as evidence by admitted w/ c/o hypoglycemia (BG 31), now improved. CURRENT DIET:LOW NA, soft easy chew PO DIET RECOMMENDATIONS: Maintain LOW NA/ texture as tolerated ADDITIONAL RECOMMENDATIONS: * Calibrated bedscale wt * Monitor BGs, need for carb control diet * Rec added D5 w/ poor PO to prevent hypoglycemia * Snacks TID in b/w meals * F/up w/ WC eval- add MVI x 1 + Vit C 250mg QD for now * Monitor lytes, replete as needed (low K) (3) Diabetes (4) HTN (hypertension) (5) CHF exacerbation (6) Hypoglycemia (7) Deep tissue injury Assessment & Plan: Pt presented on admission with Pressure injury Sacrum,R and L Buttocks. Base of woud is purple with surrounding maroon borders without induration or fluctuance. At L buttocks base of wound is maroon without induration or fluctuance. Non-blanching erythema periwound . Pt denied tenderness when affected area palpated. Pt educated on wound prevention. Encouraged to frequently turn while in bed . Pt verbalized feeling weak. Pt has Purewick but also requests bedpan when needed. Both heels are soft but both heels are easily blanchable. Tx.Plan: Apply Moisture Barrier Paste to buttocks. Cover with Optifoam Drsg. Change every 3 days and prn. Apply Cavilon Skin Barrier to both heels. Cover each heel with Optifoam drsgs. Changee very 7 days and prn. Reposition at least every 2hours or as tolerated. Off-load heels with Pillow. Dilip Barbosa Mar 05, 2020 09:54
--- NOTE | 2020-03-05 10:17 | NUR ---
[employer] NAILER NOTE SW was able to locate her friends. SW spoke w/ Ariane Quigley [phone] (home) [phone] (cell) and confirmed pt resides w/ her at [address] [place] [address]. Ariane is not aware of any family members of pt. Ariane informed this SW that pt is able to verbalize and express her needs and concerns. PT's other friend/related to Ariane Quigley: Ana Cristina Quigley [phone].
--- NOTE | 2020-03-05 10:25 | NUR ---
PT EVALUATION NOTE Patient seen for initial evaluation and treatment initiated. Patient presents with generalized weakness and decreased balance which impairs patient's ability to perform functional mobility tasks safely. Patient requires min/mod assist for bed mobility and min assist for transfers with FWW. Patient unsteady in sitting and standing with impaired trunk control. Patient able to ambulate 10 ft with min assist and FWW, very unsteady, requires assist to maintain balance and to manage FWW. Patient will benefit from skilled inpatient PT intervention to increase strength and balance for improved level of functional mobility and safety and to decrease fall risk. Recommend discharge to [facility] vs short term SNF for rehab once medically cleared by MD. Recommend FWW to increase safety with ambulation. Addendum: 03/05/20 at 1223 by CINDY JOYNER PT Amended: Links added.
[2020-03-05 12:00] VITALS: BP 169/67
--- NOTE | 2020-03-05 12:27 | Infectious Diseases Prog Note ---
Assessment/Plan Assessment: Gram positive bacteremia- real vs contaminant -03/03 Bcx 3/4 GPC clusters; 03/04 bcx p 2d echo: no vegetations Acute anemia Acute encephalopathy 2ry to hypoglycemia Pulmonary edema -CXR: Mild pulmonary edema and probable small bilateral pleural effusions. Findings likely associated with congestive heart failure or hypervolemia. Mild residual upper lobe airspace opacities from prior pneumonia. -03/03 Rapid COVID neg -v. duplex: Negative for evidence of lower extremity deep venous thrombosis bilaterally Afebrile- Tm 99.7 No leukocytosis HTN Dm2 s/p PPM CHF board care resident Plan: -Cont IV Vancomycin #2 -03/03 sp Levaquin x1 -f/u cx -Monitor CBC/CMP, temperatures -GI f/u -aspiration precautions -f/u repeat Bcx x2 Thank you for this consultation. Will continue to follow along with you. Discussed with RN. Subjective Allergies: Coded Allergies: No Known Allergies (Unverified , 01/09/20) afebrile at RA repeat Bcx p Objective Last 24 Hour Vital Signs Date Time Temp Pulse Resp B/P (MAP) Pulse Ox O2 Delivery O2 Flow Rate FiO2 03/05/20 08:52 65 160/71 03/05/20 08:00 97.5 65 18 160/71 (100) 95 03/05/20 05:30 159/65 03/05/20 04:00 97.7 60 19 159/65 (96) 95 03/05/20 04:00 62 03/05/20 00:16 143/59 03/05/20 00:00 61 03/05/20 00:00 98.2 60 19 143/59 (87) 95 03/04/20 21:18 60 152/76 03/04/20 21:00 Room Air 03/04/20 20:00 60 03/04/20 20:00 98.2 60 19 152/70 (97) 99 03/04/20 17:57 154/59 03/04/20 16:00 97.7 60 20 154/59 (90) 99 03/04/20 16:00 62 03/04/20 12:20 182/79 Height (Feet): 5 Height (Inches): 2.00 Weight (Pounds): 106 GENERAL: Sleeping in bed, in the ER gurney, not talking much. Lethargic, sleepy. HEENT: Normocephalic, atraumatic. NECK: Trachea midline. CARDIOVASCULAR: No peripheral edema. LUNGS: Breathing comfortably on room air. ABDOMEN: No apparent wounds. EXTREMITIES: Show no cyanosis or clubbing. Microbiology Date/Time Source Procedure Growth Status 03/03/20 06:52 Blood Blood Culture - Preliminary Gram Positive Cocci Resulted 03/03/20 06:35 Blood Blood Culture - Preliminary Gram Positive Cocci Resulted 03/03/20 09:00 Nasopharynx SARS-CoV-2 RdRp Gene Assay - Final Complete Laboratory Tests Test 03/04/20 15:30 03/04/20 21:16 03/05/20 06:13 Troponin I 0.150 ng/mL (0.000-0.056) POC Whole Blood Glucose 92 MG/DL (74-106) White Blood Count 8.4 K/UL (4.8-10.8) Red Blood Count 3.81 M/UL (4.20-5.40) L Hemoglobin 10.0 G/DL (12.0-16.0) L Hematocrit 32.9 % (37.0-47.0) L Mean Corpuscular Volume 86 FL (80-99) Mean Corpuscular Hemoglobin 26.3 PG (27.0-31.0) L Mean Corpuscular Hemoglobin Concent 30.5 G/DL (32.0-36.0) L Red Cell Distribution Width 16.9 % (11.6-14.8) H Platelet Count 264 K/UL (150-450) Mean Platelet Volume 7.0 FL (6.5-10.1) Neutrophils (%) (Auto) 74.7 % (45.0-75.0) Lymphocytes (%) (Auto) 12.7 % (20.0-45.0) L Monocytes (%) (Auto) 7.7 % (1.0-10.0) Eosinophils (%) (Auto) 3.7 % (0.0-3.0) H Basophils (%) (Auto) 1.3 % (0.0-2.0) Sodium Level 143 MMOL/L (136-145) Potassium Level 3.3 MMOL/L (3.5-5.1) L Chloride Level 109 MMOL/L (98-107) H Carbon Dioxide Level 24 MMOL/L (21-32) Anion Gap 10 mmol/L (5-15) Blood Urea Nitrogen 9 mg/dL (7-18) Creatinine 0.8 MG/DL (0.55-1.30) Estimat Glomerular Filtration Rate > 60 mL/min (>60) Glucose Level 101 MG/DL (74-106) Calcium Level 8.4 MG/DL (8.5-10.1) L Current Medications Medications (Trade) Dose Ordered Sig/Breana Route PRN Reason Start Time Stop Time Status Last Admin Dose Admin Amlodipine Besylate (Norvasc) 5 mg Q12HR ORAL 03/04/20 09:40 04/03/20 09:39 03/05/20 08:52 Ascorbic Acid (Vitamin C) 250 mg DAILY ORAL 03/05/20 09:00 04/04/20 08:59 03/05/20 08:53 Clonidine HCl (Catapres Tab) 0.1 mg EVERY 6 HOURS ORAL 03/03/20 18:00 06/01/20 17:59 03/05/20 05:30 Clonidine HCl (Catapres tab) 0.2 mg Q2H PRN ORAL For High Blood Pressure 03/04/20 09:30 06/02/20 09:29 Dextrose (Dextrose 50%) 25 ml Q30M PRN IV Hypoglycemia 03/03/20 16:30 06/01/20 16:29 Dextrose (Dextrose 50%) 50 ml Q30M PRN IV Hypoglycemia 03/03/20 16:30 06/01/20 16:29 Docusate Sodium (Colace) 100 mg TWICE A DAY ORAL 03/04/20 11:30 04/03/20 11:29 03/05/20 08:52 Insulin Aspart (NovoLOG) BEFORE MEALS AND HS SUBQ 03/03/20 16:30 06/01/20 16:29 03/03/20 17:12 Iron Sucrose 100 mg/Sodium Chloride 60 ml @ 240 mls/hr BEDTIME IV 03/04/20 21:00 03/08/20 21:14 03/04/20 21:17 Lactulose (Cephulac) 10 gm THREE TIMES A DAY ORAL 03/05/20 13:00 04/04/20 12:59 Multivitamins (Multivitamins) 1 tab DAILY ORAL 03/05/20 09:00 8/6/20 08:59 03/05/20 08:53 Pantoprazole (Protonix) 40 mg DAILY ORAL 03/04/20 09:00 04/03/20 08:59 03/05/20 08:52 Polyethylene Glycol (Miralax) 17 gm BEDTIME ORAL 03/04/20 21:00 04/03/20 20:59 03/04/20 21:17 Potassium Chloride (K-Dur) 40 meq ONCE ORAL 03/05/20 11:15 03/05/20 12:15 Sodium Chloride 1,000 ml @ 60 mls/hr [id number] IV 03/03/20 16:30 04/02/20 16:29 03/05/20 02:12 Vancomycin HCl (Vanco pharmacy to dose) 1 ea DAILY PRN MISC Per rx protocol 03/04/20 13:30 04/03/20 13:29 Vancomycin HCl 500 mg/Dextrose 110 ml @ 110 mls/hr Q12HR@0300,1500 IVPB 03/04/20 15:00 03/09/20 14:59 03/05/20 02:13 Belem Foster M.D. Mar 05, 2020 12:27
--- NOTE | 2020-03-05 13:40 | General Progress Note ---
Assessment/Plan Problem List: (1) HTN (hypertension) ICD Codes: I10 - Essential (primary) hypertension SNOMED: 79453412 (2) Diabetes ICD Codes: E11.9 - Type 2 diabetes mellitus without complications SNOMED: 12329779 (3) CHF exacerbation ICD Codes: I50.9 - Heart failure, unspecified SNOMED: 862124818, 60544359078449 (4) Anemia ICD Codes: D64.9 - Anemia, unspecified SNOMED: 222407914 Qualifiers: Qualified Codes: D64.9 - Anemia, unspecified (5) Hypoglycemia ICD Codes: E16.2 - Hypoglycemia, unspecified SNOMED: 456203937 Status: stable, progressing Assessment/Plan: pt diet bp bs control endo eval cbc bmp am dc plan snf Subjective Constitutional: Reports: weakness Allergies: Coded Allergies: No Known Allergies (Unverified , 01/09/20) All Systems: reviewed and negative except above Subjective sleepy calm Objective Last 24 Hour Vital Signs Date Time Temp Pulse Resp B/P (MAP) Pulse Ox O2 Delivery O2 Flow Rate FiO2 03/05/20 12:12 169/67 03/05/20 08:52 65 160/71 03/05/20 08:00 97.5 65 18 160/71 (100) 95 03/05/20 05:30 159/65 03/05/20 04:00 97.7 60 19 159/65 (96) 95 03/05/20 04:00 62 03/05/20 00:16 143/59 03/05/20 00:00 61 03/05/20 00:00 98.2 60 19 143/59 (87) 95 03/04/20 21:18 60 152/76 03/04/20 21:00 Room Air 03/04/20 20:00 60 03/04/20 20:00 98.2 60 19 152/70 (97) 99 03/04/20 17:57 154/59 03/04/20 16:00 97.7 60 20 154/59 (90) 99 03/04/20 16:00 62 Intake and Output 03/04/20 03/05/20 19:00 07:00 Intake Total 118 ml 200 ml Balance 118 ml 200 ml Intake Oral 118 ml 200 ml # Voids 2 4 Laboratory Tests 03/04/20 15:30: Troponin I 0.150H 03/04/20 21:16: POC Whole Blood Glucose 92 03/05/20 06:13: White Blood Count 8.4, Red Blood Count 3.81L, Hemoglobin 10.0L, Hematocrit 32.9L , Mean Corpuscular Volume 86, Mean Corpuscular Hemoglobin 26.3L, Mean Corpuscular Hemoglobin Concent 30.5L, Red Cell Distribution Width 16.9H, Platelet Count 264, Mean Platelet Volume 7.0, Neutrophils (%) (Auto) 74.7, Lymphocytes (%) (Auto) 12.7L, Monocytes (%) (Auto) 7.7, Eosinophils (%) (Auto) 3.7H, Basophils (%) (Auto) 1.3, Sodium Level 143, Potassium Level 3.3L, Chloride Level 109H, Carbon Dioxide Level 24, Anion Gap 10, Blood Urea Nitrogen 9, Creatinine 0.8, Estimat Glomerular Filtration Rate > 60, Glucose Level 101, Calcium Level 8.4L Height (Feet): 5 Height (Inches): 2.00 Weight (Pounds): 106 General Appearance: lethargic EENT: normal ENT inspection Neck: normal alignment Cardiovascular: normal peripheral pulses, normal rate, regular rhythm Respiratory/Chest: chest wall non-tender, lungs clear, normal breath sounds Abdomen: normal bowel sounds, non tender, soft Extremities: normal inspection Edema: no edema noted Arm (L), no edema noted Arm (R), no edema noted Leg (L), no edema noted Leg (R), no edema noted Pedal (L), no edema noted Pedal (R), no edema noted Generalized Neurologic: motor weakness Skin: normal pigmentation, warm/dry Chong Rodriguez DO Mar 05, 2020 13:40
[2020-03-05] MEDS: Lactulose 10gm/15ml UDC ORAL SCH ×2 (13:45→17:29)
--- NOTE | 2020-03-05 14:21 | NUR ---
NURSE NOTES: Pt has been yelling and stating she wants to go home. She also has been trying to get out of bed when she is very weak. Informed Dr. Rodriguez and he will consult Psychiatrist Dr. Oconnor to evaluate patient. After evaluation, he will determine once evaluated.
[2020-03-05] MEDS ORDERED: LORazepam 0.5mg tab ORAL PRN (14:45)
--- NOTE | 2020-03-05 15:37 | NUR ---
RECEIVED/CONFIRMED BEDSIDE SWALLOW EVALUATION ORDER, REVIEWED CHART. PATIENT CLEARED FOR ST INTERVENTION BY SOURAV MCBRIDE. PATIENT IS A 70 Y.O. FEMALE WHO WAS ADMITTED WITH DX OF ALOC. INITIAL BS IN ER WAS 31. PLOF: PATIENT WAS ADMITTED TO THIS FACILITY IN DECEMBER WITH DX OF S/P FALL, HEAD TRAUMA. AT THAT TIME (01/16) PATIENT PRESENTED ON NEURO SCREEN WITH 0X 4. HER CXR WAS POSITIVE FOR BILATERAL INFILTRATES/PLEURAL EFFUSIONS/GROUND GLASS OPACITIES IN UPPER LUNGS/"PROBABLE PNEUMONIA", THE HEAD CT DURING THAT VISIT WAS POSITIVE FOR ENCEPHALOMALACIA IN INFERIOR R/FRONTAL LOBE.SHE WAS ON A REGULAR TEXTURE DIET DURING THAT STAY. SHE LEFT THIS FACILITY AMA. DYSPHAGIA RISK FACTORS INCLUDE: DROWSINESS, DECREASED MENTATION/COGNITION, HISTORY OF FALLS, POOR FINE MOTOR SKILLS (CONSISTENT WITH DX OF ENCEPHALOMALACIA), HX OF PNEUMONIA, CHF. PER POLST: PATIENT FULL CODE. PATIENT ON REGULAR DIET PRIOR TO ADMISSION. PATIENT ASSESSED ON P.O. TRIALS OF 3 PRESENTATIONS OF THIN, NECTAR THICK LIQUIDS, HONEY THICK LIQUIDS, PUREE PRESENTED X3 IN 5ML AMOUNTS VIA SPOON AND TWO BITE/SIZED PIECES OF CRACKER. PATIENT FOLLOWED SOME COMMANDS FOR AN ORAL MOTOR EXAM. LINGUAL/LABIAL/MANDIBULAR MUSCULATURE RELATIVELY INTACT FOR STRENGTH/ROM, BUT COORDINATION DETERIORATED WITH SUBSEQUENT TRIALS. DENTITION INCLUDES MOST OF BOTTOM TEETH, MISSING UPPER MEDIAL/LATERAL INCISORS AND INTACT UPPER MOLARS. . FOLLOWING P.O. TRIALS, A COGNITIVE SCREEN (SLUMS) WAS ALSO COMPLETED. INITIAL IMPRESSIONS: PATIENT PRESENTS WITH MODERATE OROPHARYNGEAL DYSPHAGIA WITH SIGNIFICANTLY INCREASED OVERALL TRANSIT TIMES RELATIVE TO ORAL PREPARATION, MASTICATION AND A/P TRANSFER OF BOLUS DUE TO SENSORIMOTOR DEFICITS/SWALLOW APRAXIA, DECREASED AWARENESS OF FOOD IN MOUTH, DECREASED ATTENTION, AGITATION. IMMEDIATE COUGH RESPONSE TO THIN LIQUIDS. THROAT CLEAR X1 IN RESPONSE TO NECTAR THICK LIQUIDS. NO OVERT S/S OF ASPIRATION WITH PUREE, HONEY THICK OR SOFT SOLID CONSISTENCIES. CLEAR VOCAL QUALITY THROUGHOUT ALL P.O. TRIALS. HYOLARYNGEAL EXCURSION APPEARED DELAYED AND INCONSISTENT FOR AIRWAY PROTECTION. TRACE RESIDUE REMAINING ON LINGUAL SURFACE OF SOFT SOLID TRIALS PATIENT ACHIEVED A RAW SCORE OF 12 ON THE SLUMS ([facility] MENTAL SCALE WHICH IS CONSISTENT WITH SEVERE COGNITIVE DEFICITS TO MAXIMIZE PATIENTS SWALLOW SAFETY AND MINIMIZE RISK OF ASPIRATION THE FOLLOWING IN RECOMMENDED: RECOMMENDATIONS: 1. MEALTIME PROTOCOL POSTED AT BEDSIDE TO INCLUDE: TOTAL ASSIST W/ MEALS, SLOW RATE, POSITION UPRIGHT AT 90 DEGREES FOR P.O. SMALL BITES, MINIMIZE DISTRACTIONS, NO TALKING WITH FOOD IN MOUTH, PATIENT MUST BE ALERT/AWAKE FOR MEALS AND ORAL CARE POST P.O. 2. CRUSH CRUSHABLE MEDS/PRESENT IN PUREE 3. DOWNGRADE CURRENT DIET TO MECHANICAL SOFT/CHOPPED WITH NECTAR THICK LIQUIDS 4. NO STRAWS 5. VIDEO SWALLOW STUDY SOON CAN BE ARRANGED (QUESTIONABLE IF PATIENT WILL PARTICIPATE) 6. ST TO FOLLOW FOR DIET TOLERANCE, VIDEO SWALLOW STUDY, PATIENT/CAREGIVER EDUCATION RE ASPIRATION PRECAUTIONS MEALTIME PROTOCOL POSTED AT BEDSIDE. RESULTS/RECOMMENDATIONS D/W SOURAV MCBRIDE.
[2020-03-05 16:00] VITALS: BP 141/64
--- NOTE | 2020-03-05 16:00 | NUR ---
NURSE NOTES: Pt is has been yelling she wants to go home and trying to get out of bed. Dr. Oconnor ordered Ativan 0.5 mg PO PRN. Offered Ativan to patient.
--- NOTE | 2020-03-05 16:51 | Cardiac Electrophysiology PN ---
Assessment/Plan Assessment/Plan 1. Status post dual-chamber left-sided pacemaker. We will try to find the brand of the pacemaker and interrogate it for further evaluation. 2. Altered mental status, likely due to hypoglycemia as the blood glucose was only 31, but improved. 3. Accelerated hypertension with blood pressure in the 190s. On amlodipine 5 mg b.i.d. as well as clonidine 0.1 mg every 6 hours as well as p.r.n. clonidine 4. Status post heart surgery, the nature of which is not clear. I am not sure if this was bypass or valve surgery. We will try to get the records from the senior care. 5. Dementia. 6. Severe anemia. The patient received blood transfusion. Further evaluation by Dr. Willoughby as well as Dr. Mcmullen . JEFF RN Subjective Subjective Agitated and screams that wants to go home. Awaiting placement by Case management Objective Last 24 Hour Vital Signs Date Time Temp Pulse Resp B/P (MAP) Pulse Ox O2 Delivery O2 Flow Rate FiO2 03/05/20 12:12 169/67 03/05/20 12:00 97.7 85 20 169/67 (101) 96 03/05/20 12:00 62 03/05/20 09:00 Room Air 03/05/20 08:52 65 160/71 03/05/20 08:00 97.5 65 18 160/71 (100) 95 03/05/20 08:00 72 03/05/20 05:30 159/65 03/05/20 04:00 97.7 60 19 159/65 (96) 95 03/05/20 04:00 62 03/05/20 00:16 143/59 03/05/20 00:00 61 03/05/20 00:00 98.2 60 19 143/59 (87) 95 03/04/20 21:18 60 152/76 03/04/20 21:00 Room Air 03/04/20 20:00 60 03/04/20 20:00 98.2 60 19 152/70 (97) 99 03/04/20 17:57 154/59 Intake and Output 03/04/20 03/05/20 19:00 07:00 Intake Total 118 ml 200 ml Balance 118 ml 200 ml Intake Oral 118 ml 200 ml # Voids 2 4 Laboratory Tests Test 03/04/20 21:16 03/05/20 06:13 POC Whole Blood Glucose 92 MG/DL (74-106) White Blood Count 8.4 K/UL (4.8-10.8) Red Blood Count 3.81 M/UL (4.20-5.40) L Hemoglobin 10.0 G/DL (12.0-16.0) L Hematocrit 32.9 % (37.0-47.0) L Mean Corpuscular Volume 86 FL (80-99) Mean Corpuscular Hemoglobin 26.3 PG (27.0-31.0) L Mean Corpuscular Hemoglobin Concent 30.5 G/DL (32.0-36.0) L Red Cell Distribution Width 16.9 % (11.6-14.8) H Platelet Count 264 K/UL (150-450) Mean Platelet Volume 7.0 FL (6.5-10.1) Neutrophils (%) (Auto) 74.7 % (45.0-75.0) Lymphocytes (%) (Auto) 12.7 % (20.0-45.0) L Monocytes (%) (Auto) 7.7 % (1.0-10.0) Eosinophils (%) (Auto) 3.7 % (0.0-3.0) H Basophils (%) (Auto) 1.3 % (0.0-2.0) Sodium Level 143 MMOL/L (136-145) Potassium Level 3.3 MMOL/L (3.5-5.1) L Chloride Level 109 MMOL/L (98-107) H Carbon Dioxide Level 24 MMOL/L (21-32) Anion Gap 10 mmol/L (5-15) Blood Urea Nitrogen 9 mg/dL (7-18) Creatinine 0.8 MG/DL (0.55-1.30) Estimat Glomerular Filtration Rate > 60 mL/min (>60) Glucose Level 101 MG/DL (74-106) Calcium Level 8.4 MG/DL (8.5-10.1) L Microbiology Date/Time Source Procedure Growth Status 03/03/20 06:52 Blood Blood Culture - Preliminary Gram Positive Cocci Resulted 03/03/20 06:35 Blood Blood Culture - Preliminary Gram Positive Cocci Resulted 03/03/20 09:00 Nasopharynx SARS-CoV-2 RdRp Gene Assay - Final Complete Objective NECK: No JVD. LUNGS: Clear. CARDIOVASCULAR: Sternotomy scar is intact. Left-sided pacemaker is in place. ABDOMEN: Soft. EXTREMITIES: No pitting edema. Dylon Frederick MD Mar 05, 2020 16:51
--- NOTE | 2020-03-05 16:55 | NUR ---
FIRMWARE MANAGER NOTE The team is concerned of pt's well-being upon DC. ALLISON filed APS report #[id number]. Addendum: 03/05/20 at 1710 by GHADA COOPER SW was informed pt wants to sign AMA. Pt presents as irritable. ALLISON met w/ pt and encouraged to receive tx. However, pt refused. ALLISON discussed the drawbacks of AMA. Pt verbalized understanding. Pt insisted to return home. Pt also insisted that she is residing w/ her friend and that she spoke w/ her and will pick her up. Assigned RN and CM are aware of pt's decision.
--- NOTE | 2020-03-05 17:10 | NUR ---
Discharge planning: CM spoke to social services specialist regarding family and safe discharge CM spoke to patient about SNF placement; patient not agreeable SW not able to locate B&[facility] CM also spoke with RN; patient able to verbalize needs Patient wanting to leave AMA CM and SW spoke to patient and patient verbalize needs and care for self If friend able to pickup driver patient patient may leave AMA
--- NOTE | 2020-03-05 18:10 | NUR ---
Pt has andrew agitated and screaming that she wants to go home. She is also trying to get out of bed but weak and unstable. Pt was seen by Dr. Oconnor and states that cognitively she is not stable. Spoke with social media strategist and states that based on her assessment, pt is not gravely ill and she can go home if she wants to. If she does sign AMA, social media strategist can report to APS. I informed Dr. Rodriguez about what was told by social media strategist Kisha and he states Dr. Oconnor to determine if she has the capacity and go from there.
--- NOTE | 2020-03-05 18:30 | Consultation ---
DATE OF CONSULTATION: 03/05/2020 CONSULTING PHYSICIAN: Tammi Oconnor MD. HISTORY OF PRESENT ILLNESS: This is a 70-year-old female patient. This came in with hypoglycemia, but she is very agitated on interview when I entered the room. She stated "I want to go home right now." She started waving her hands in the air. Seemed to be exhibiting a lot of psychomotor agitation. Apparently, she has been resistant to treatment on the unit. She has been very resistant to care. She has got very poor insight. I tried to explain why she is in the hospital and what medical problems she has going on, but she persistently states she wants to go home and she does not care about what her medical problems are. She is very resistant to treatment discussion about it and so because of her psychomotor agitation and anxiety, that was the reason why there was a daily psychiatric consultation. MEDICAL PROBLEMS: She has history of pneumonia, anemia, diabetes, hypertension, congestive heart failure, hypoglycemia. ALLERGIES: She has no known drug allergies. PSYCHOTROPIC MEDICATIONS ON ADMISSION: She is currently not on any psychotropic medications right now. She is a poor historian, so she cannot give me any details about her previous med regimen in the past. SUBSTANCE ABUSE HISTORY: There is no known history of any drug and alcohol use. FAMILY PSYCHIATRIC HISTORY: Denies. PAIN ASSESSMENT: She denies any pain, so 0/10 pain at this time. DEVELOPMENTAL PROBLEMS: Denies. SOCIAL HISTORY: She is living in a private residence. She is financially supported by [employer] and Medicare. MENTAL STATUS EXAMINATION: This is a 70-year-old female patient. Her appearance is disheveled. Attitude, irritable and agitated. Affect is labile. Intellect poor. Mood, depressed and anxious. Motor activity, psychomotor agitation. Her attention span is poor because she cannot do serial sevens or spell world backwards. Orientation x2. She is oriented to person and place, not time and situation. Speech is pressured, nonsensical. Thought process, disorganized and illogical. Thought content, auditory hallucinations and paranoid delusions. Perception is poor because of perceptual disturbances, auditory hallucinations, and paranoid delusions. Abstract reasoning is poor because she does not understand proverbs and only has concrete thinking. Insight is poor because she does not recognize having a psych disorder. Judgment is poor because she does not accept consequences for her actions. Short-term memory, 3/3 recall after 5 minute-delay with good short-term memory. Long-term memory is intact based on the knowledge of long-term events of life such as high school that she went to. . DIAGNOSES: Overall, 1. Major depressive disorder, severe, recurrent, rule out generalized anxiety disorder. 2. There is no secondary. 3. Medical includes hypoglycemia. 4. Psychosocial stressors, financial. 5. Functional impairment is moderate. PLAN: My plan for this patient, at this time I am going to add a low dose of Ativan 0.5 mg every 6 hours p.r.n. anxiety, agitation because she has lot of psychomotor agitation, she could take as needed. Twenty minutes of cognitive behavioral therapy to help her identify automatic negative thoughts, help her convert negative thoughts to more positive thoughts to reduce depression, anxiety, suicidality. Chart reviewed. Discussed with staff. Seen and assessed at bedside. Tammi Oconnor M.D. DR: ALBERTO JOB#: [id number] CC:
--- NOTE | 2020-03-05 19:30 | NUR ---
NURSE NOTES: Report received from Tosin BENJAMIN. Patient is found to be awake and alert x 4 and agitated. Ministerio BENJAMIN was able to communicate with patient and calm patient down. Ministerio BENJAMIN educated patient on reason for hospitalization. Patient verbalized understanding. Ministerio BENJAMIN requested that the patient stopped yelling and used the call light when in need of something. Patient verbalized understanding. Patient verbalized that she will stay the night at [facility], but would still like to leave tomorrow. Per Tosin BENJAMIN, Doctor Dakota, social work, and case management is aware. Per social work patient is able to leave AMA. Charge Nurse Hermelinda is aware. Patient noted to have transfer order to med surg, no bed available at this time. Patient is note to have no IV access at this time. Was endorsed to Ministerio BENJAMIN that patient is uncooperative and removed several IVs. MD aware per Tosin BENJAMIN. Patient noted to require OB stool sample. Patient noted to have low potassium laboratory value today, 40 MEQ of potassium was administered. Patient is considered a high fall risk and is near the nursing station. photography assistant aware. Bed locked, alarmed, in lowest position, will continue to follow plan of care.
[2020-03-05 20:00] VITALS: BP 157/71
[2020-03-05] MEDS: Miralax 17gm pkt ORAL SCH (21:00)
[2020-03-05] MEDS: Iron Sucrose 100 MG in NS 55 ML IV SCH (22:15)
--- NOTE | 2020-03-05 22:49 | NUR ---
NURSE NOTES: Delay in patient care due to attempting to gain IV access. Able to gain 24 sarah IV access in left hand. Will continue fluids per MD orders.
[2020-03-06] VITALS: BP 175/66
[2020-03-06] MEDS ORDERED: Vancomycin 500mg/D5W 110ml IVPB SCH ×2 (03:00)
[2020-03-06 04:00] VITALS: BP 155/67
[2020-03-06 04:53] LABS: BASOPHILS % (AUTO) 0.7 % (0.0-2.0); EOSINOPHILS % (AUTO) 5.3 % (0.0-3.0); HEMATOCRIT 32.7 % (37.0-47.0); HEMOGLOBIN 9.8 G/DL (12.0-16.0); LYMPHOCYTES % (AUTO) 17.2 % (20.0-45.0); MEAN CORPUSCULAR VOLUME 86 FL (80-99); MONOCYTES % (AUTO) 10.1 % (1.0-10.0); NEUTROPHILS % (AUTO) 66.7 % (45.0-75.0); PLATELET COUNT 257 K/UL (150-450); RED BLOOD COUNT 3.79 M/UL (4.20-5.40); RED CELL DISTRIBUTION WIDTH 17.2 % (11.6-14.8)
[2020-03-06 05:10] LABS: ANION GAP 11 mmol/L (5-15); BLOOD UREA NITROGEN 9 mg/dL (7-18); CALCIUM 8.1 MG/DL (8.5-10.1); CARBON DIOXIDE 26 MMOL/L (21-32); CHLORIDE 106 MMOL/L (98-107); CREATININE 0.8 MG/DL (0.55-1.30); POTASSIUM 3.1 MMOL/L (3.5-5.1); SODIUM 143 MMOL/L (136-145)
--- NOTE | 2020-03-06 05:32 | NUR ---
HAND-OFF: Report given to Edith. Endorsed that patient is high fall risk due to being weak on feet. Endorsed that patient will yell out instead of using call light. Endorsed that patient was refusing care during day shift yesterday, but was cooperative with Ministerio BENJAMIN. Endorsed that patient is requesting to leave AMA and that MD is aware. Belongings list signed. All belongings transferred with patient. Patient is currently in stable condition.
--- NOTE | 2020-03-06 05:33 | NUR ---
NURSE NOTES: Patient transfered from telemetry unit to med surg, received report from SOURAV Mandel at bedside. Valuables list reviewed with SOURAV Mandel. Patient alert, oriented x 2-3. No complaints of pain, wishes to go home. Asked that we call her friend after breakfast. Per report DTI on sacrum, photo taken and redressed with optifoam. VSS. Fall risk precautions implemented, bed in low position, locked, bed alarm on, side rails up x3, call light within reach. Will continue to monitor.
[2020-03-06 05:40] VITALS: BP 150/70
[2020-03-06] MEDS: NovoLOG Insulin Flexpen SUBQ SCH (05:53)
--- NOTE | 2020-03-06 06:29 | General Progress Note ---
Assessment/Plan Problem List: (1) Hypoglycemia ICD Codes: E16.2 - Hypoglycemia, unspecified SNOMED: 297331652 (2) Diabetes ICD Codes: E11.9 - Type 2 diabetes mellitus without complications SNOMED: 27880474 (3) Pneumonia ICD Codes: J18.9 - Pneumonia, unspecified organism SNOMED: 599361623 Qualifiers: Qualified Codes: J18.9 - Pneumonia, unspecified organism (4) Anemia ICD Codes: D64.9 - Anemia, unspecified SNOMED: 241607860 Qualifiers: Qualified Codes: D64.9 - Anemia, unspecified (5) HTN (hypertension) ICD Codes: I10 - Essential (primary) hypertension SNOMED: 20603693 (6) CHF exacerbation ICD Codes: I50.9 - Heart failure, unspecified SNOMED: 804348638, [id number] Status: stable, progressing Assessment/Plan: continue glucose monitoring no need for dextrose for now hypoglycemia protocol in order continue to hold diabetic medications Subjective Allergies: Coded Allergies: No Known Allergies (Unverified , 01/09/20) All Systems: reviewed and negative except above Subjective events noted glucose values in fair range without hypoglycemia Item Value Date Time Bedside Blood Glucose 122 mg/dl H 03/06/20 0553 Bedside Blood Glucose 217 mg/dl H 03/05/20 2222 Bedside Blood Glucose 204 mg/dl H 03/05/20 1630 Bedside Blood Glucose 122 mg/dl H 03/05/20 1130 Bedside Blood Glucose 96 mg/dl 03/05/20 0542 Objective Last 24 Hour Vital Signs Date Time Temp Pulse Resp B/P (MAP) Pulse Ox O2 Delivery O2 Flow Rate FiO2 03/06/20 06:20 150/70 03/06/20 05:40 98.1 64 16 150/70 (96) 99 03/06/20 04:00 98.6 61 21 155/67 (96) 99 03/06/20 00:00 98.5 60 18 175/66 (102) 98 03/05/20 23:20 175/66 03/05/20 22:20 68 157/71 03/05/20 21:00 Room Air 03/05/20 20:00 98.5 61 18 157/71 (99) 98 03/05/20 17:28 141/64 03/05/20 16:00 97.5 62 18 141/64 (89) 97 03/05/20 16:00 72 03/05/20 12:12 169/67 03/05/20 12:00 97.7 85 20 169/67 (101) 96 03/05/20 12:00 62 03/05/20 09:00 Room Air 03/05/20 08:52 65 160/71 03/05/20 08:00 97.5 65 18 160/71 (100) 95 03/05/20 08:00 72 Intake and Output 03/05/20 03/06/20 19:00 07:00 Intake Total 120 ml 180 ml Balance 120 ml 180 ml Intake Oral 120 ml IV Total 180 ml # Voids 2 Laboratory Tests 03/05/20 11:21: POC Whole Blood Glucose 136H 03/05/20 17:26: POC Whole Blood Glucose 204H 03/05/20 21:14: POC Whole Blood Glucose 217H 03/06/20 01:56: Vancomycin Level Trough 8.4 03/06/20 04:38: White Blood Count 8.0, Red Blood Count 3.79L, Hemoglobin 9.8L, Hematocrit 32.7L , Mean Corpuscular Volume 86, Mean Corpuscular Hemoglobin 25.9L, Mean Corpuscular Hemoglobin Concent 30.0L, Red Cell Distribution Width 17.2H, Platelet Count 257, Mean Platelet Volume 7.2, Neutrophils (%) (Auto) 66.7, Lymphocytes (%) (Auto) 17.2L, Monocytes (%) (Auto) 10.1H, Eosinophils (%) (Auto ) 5.3H, Basophils (%) (Auto) 0.7, Sodium Level 143, Potassium Level 3.1L, Chloride Level 106, Carbon Dioxide Level 26, Anion Gap 11, Blood Urea Nitrogen 9 , Creatinine 0.8, Estimat Glomerular Filtration Rate > 60, Glucose Level 105, Calcium Level 8.1L 03/06/20 05:49: POC Whole Blood Glucose 122H Height (Feet): 5 Height (Inches): 2.00 Weight (Pounds): 106 General Appearance: no apparent distress Neck: normal alignment Cardiovascular: normal rate Respiratory/Chest: lungs clear Abdomen: normal bowel sounds Pelvis: normal external exam Objective Current Medications Medications (Trade) Dose Ordered Sig/Breana Route PRN Reason Start Time Stop Time Status Last Admin Dose Admin Amlodipine Besylate (Norvasc) 5 mg Q12HR ORAL 03/04/20 09:40 04/03/20 09:39 03/05/20 22:20 Ascorbic Acid (Vitamin C) 250 mg DAILY ORAL 03/05/20 09:00 04/04/20 08:59 03/05/20 08:53 Clonidine HCl (Catapres Tab) 0.1 mg EVERY 6 HOURS ORAL 03/03/20 18:00 06/01/20 17:59 03/06/20 06:20 Clonidine HCl (Catapres tab) 0.2 mg Q2H PRN ORAL For High Blood Pressure 03/04/20 09:30 06/02/20 09:29 Dextrose (Dextrose 50%) 25 ml Q30M PRN IV Hypoglycemia 03/03/20 16:30 06/01/20 16:29 Dextrose (Dextrose 50%) 50 ml Q30M PRN IV Hypoglycemia 03/03/20 16:30 06/01/20 16:29 Docusate Sodium (Colace) 100 mg TWICE A DAY ORAL 03/04/20 11:30 04/03/20 11:29 03/05/20 17:29 Insulin Aspart (NovoLOG) BEFORE MEALS AND HS SUBQ 03/03/20 16:30 06/01/20 16:29 03/05/20 22:22 Iron Sucrose 100 mg/Sodium Chloride 60 ml @ 240 mls/hr BEDTIME IV 03/04/20 21:00 03/08/20 21:14 03/04/20 21:17 Lactulose (Cephulac) 10 gm THREE TIMES A DAY ORAL 03/05/20 13:00 04/04/20 12:59 03/05/20 17:29 Lorazepam (Ativan) 0.5 mg Q6H PRN ORAL For Anxiety 03/05/20 14:45 03/12/20 14:44 03/05/20 16:13 Multivitamins (Multivitamins) 1 tab DAILY ORAL 03/05/20 09:00 04/04/20 08:59 03/05/20 08:53 Pantoprazole (Protonix) 40 mg DAILY ORAL 03/04/20 09:00 04/03/20 08:59 03/05/20 08:52 Polyethylene Glycol (Miralax) 17 gm BEDTIME ORAL 03/04/20 21:00 04/03/20 20:59 03/04/20 21:17 Sodium Chloride 1,000 ml @ 60 mls/hr [id number] IV 03/03/20 16:30 04/02/20 16:29 03/05/20 02:12 Vancomycin HCl (Vanco pharmacy to dose) 1 ea DAILY PRN MISC Per rx protocol 03/04/20 13:30 04/03/20 13:29 Vancomycin HCl 500 mg/Dextrose 110 ml @ 110 mls/hr Q8H IVPB 03/06/20 03:00 03/11/20 02:59 03/06/20 04:38 Russ Li MD Mar 06, 2020 06:29
--- NOTE | 2020-03-06 07:04 | Hematology/Onc Progress Note ---
Assessment/Plan Assessment/Plan Assessment and Recs # Anemia of iron deficiency, upon admission was 6.8-->9 after transfusion --> anemia panel has been ordered, occult blood has been ordered, ferritin low --> no evidence of hemolysis --> transfuse on a prn basis --> hgb goal >7 --> iv iron started --> as per gi eval --> hgb 6.8-->9-->9.8 # Hypoglycemia --> as per endo # Pneumonia, Mild residual upper lobe airspace opacities from prior pneumonia. --> on abx -> cxr imaging prn # Hypotension --> ivfs # Aflutter, some PVCS, paced no acute ischemic -> as per cards --> pacemaker per Yoly # Sternotomy wires, pacemaker, mild opacities seen on prior CXR --> prior hx of surgery # Dvt ppx scds Appreciate consultation and batool Rn Subjective Constitutional: Denies: no symptoms, chills, fever, malaise, weakness, other HEENT: Denies: no symptoms, eye pain, blurred vision, tearing, double vision, ear pain, ear discharge, nose pain, nose congestion, throat pain, throat swelling, mouth pain, mouth swelling, other Cardiovascular: Denies: no symptoms, chest pain, edema, irregular heart rate, lightheadedness, palpitations, syncope, other Respiratory: Denies: no symptoms, cough, shortness of breath, SOB with excertion, SOB at rest, sputum, wheezing, other Gastrointestinal/Abdominal: Denies: no symptoms, abdomen distended, abdominal pain, black stools, tarry stools, blood in stool, constipated, diarrhea, difficulty swallowing, nausea, poor appetite, poor fluid intake, rectal bleeding , vomiting, other Genitourinary: Denies: no symptoms, burning, discharge, frequency, flank pain, hematuria, incontinence, pain, urgency, other Endocrine: Denies: no symptoms, excessive sweating, flushing, intolerance to cold, intolerance to heat, increased hunger, increased thirst, increased urine, unexplained weight gain, unexplained weight loss, other Allergies: Coded Allergies: No Known Allergies (Unverified , 01/09/20) Subjective 03/05 awake, no bleeding, on iv iron, hgb improved, batool redd 03/06 labs reviewed, no bleeding, hgb 9.8, did want to leave ama Objective Objective Current Medications Medications (Trade) Dose Ordered Sig/Breana Route PRN Reason Start Time Stop Time Status Last Admin Dose Admin Amlodipine Besylate (Norvasc) 5 mg Q12HR ORAL 03/04/20 09:40 04/03/20 09:39 03/05/20 22:20 Ascorbic Acid (Vitamin C) 250 mg DAILY ORAL 03/05/20 09:00 04/04/20 08:59 03/05/20 08:53 Clonidine HCl (Catapres Tab) 0.1 mg EVERY 6 HOURS ORAL 03/03/20 18:00 06/01/20 17:59 03/06/20 06:20 Clonidine HCl (Catapres tab) 0.2 mg Q2H PRN ORAL For High Blood Pressure 03/04/20 09:30 06/02/20 09:29 Dextrose (Dextrose 50%) 25 ml Q30M PRN IV Hypoglycemia 03/03/20 16:30 06/01/20 16:29 Dextrose (Dextrose 50%) 50 ml Q30M PRN IV Hypoglycemia 03/03/20 16:30 06/01/20 16:29 Docusate Sodium (Colace) 100 mg TWICE A DAY ORAL 03/04/20 11:30 04/03/20 11:29 03/05/20 17:29 Insulin Aspart (NovoLOG) BEFORE MEALS AND HS SUBQ 03/03/20 16:30 06/01/20 16:29 03/05/20 22:22 Iron Sucrose 100 mg/Sodium Chloride 60 ml @ 240 mls/hr BEDTIME IV 03/04/20 21:00 03/08/20 21:14 03/04/20 21:17 Lactulose (Cephulac) 10 gm THREE TIMES A DAY ORAL 03/05/20 13:00 04/04/20 12:59 03/05/20 17:29 Lorazepam (Ativan) 0.5 mg Q6H PRN ORAL For Anxiety 03/05/20 14:45 03/12/20 14:44 03/05/20 16:13 Multivitamins (Multivitamins) 1 tab DAILY ORAL 03/05/20 09:00 04/04/20 08:59 03/05/20 08:53 Pantoprazole (Protonix) 40 mg DAILY ORAL 7/6/20 09:00 04/03/20 08:59 03/05/20 08:52 Polyethylene Glycol (Miralax) 17 gm BEDTIME ORAL 03/04/20 21:00 04/03/20 20:59 03/04/20 21:17 Sodium Chloride 1,000 ml @ 60 mls/hr [id number] IV 03/03/20 16:30 04/02/20 16:29 03/05/20 02:12 Vancomycin HCl (Vanco pharmacy to dose) 1 ea DAILY PRN MISC Per rx protocol 03/04/20 13:30 04/03/20 13:29 Vancomycin HCl 500 mg/Dextrose 110 ml @ 110 mls/hr Q8H IVPB 03/06/20 03:00 03/11/20 02:59 03/06/20 04:38 Last 24 Hour Vital Signs Date Time Temp Pulse Resp B/P (MAP) Pulse Ox O2 Delivery O2 Flow Rate FiO2 03/06/20 06:20 150/70 03/06/20 05:40 98.1 64 16 150/70 (96) 99 03/06/20 04:00 98.6 61 21 155/67 (96) 99 03/06/20 00:00 98.5 60 18 175/66 (102) 98 03/05/20 23:20 175/66 03/05/20 22:20 68 157/71 03/05/20 21:00 Room Air 03/05/20 20:00 98.5 61 18 157/71 (99) 98 03/05/20 17:28 141/64 03/05/20 16:00 97.5 62 18 141/64 (89) 97 03/05/20 16:00 72 03/05/20 12:12 169/67 03/05/20 12:00 97.7 85 20 169/67 (101) 96 03/05/20 12:00 62 03/05/20 09:00 Room Air 03/05/20 08:52 65 160/71 03/05/20 08:00 97.5 65 18 160/71 (100) 95 03/05/20 08:00 72 03/05/20 05:30 159/65 03/05/20 04:00 97.7 60 19 159/65 (96) 95 03/05/20 04:00 62 7/7/20 00:16 143/59 03/05/20 00:00 61 03/05/20 00:00 98.2 60 19 143/59 (87) 95 03/04/20 21:18 60 152/76 03/04/20 21:00 Room Air 03/04/20 20:00 60 03/04/20 20:00 98.2 60 19 152/70 (97) 99 03/04/20 17:57 154/59 03/04/20 16:00 97.7 60 20 154/59 (90) 99 03/04/20 16:00 62 03/04/20 12:20 182/79 03/04/20 12:00 97.5 59 20 182/79 (113) 100 03/04/20 12:00 69 03/04/20 09:43 80 195/97 03/04/20 09:00 Room Air 03/04/20 08:00 97.7 80 20 195/97 (129) 95 03/04/20 08:00 62 Intake and Output 03/05/20 03/06/20 19:00 07:00 Intake Total 120 ml 180 ml Balance 120 ml 180 ml Intake Oral 120 ml IV Total 180 ml # Voids 2 Labs Test 03/03/20 14:02 03/03/20 16:51 03/03/20 20:17 03/04/20 05:10 POC Whole Blood Glucose 75 MG/DL (74-106) 150 MG/DL (74-106) 83 MG/DL (74-106) White Blood Count 9.6 K/UL (4.8-10.8) Red Blood Count 3.95 M/UL (4.20-5.40) Hemoglobin 10.4 G/DL (12.0-16.0) Hematocrit 34.1 % (37.0-47.0) Mean Corpuscular Volume 86 FL (80-99) Mean Corpuscular Hemoglobin 26.2 PG (27.0-31.0) Mean Corpuscular Hemoglobin Concent 30.4 G/DL (32.0-36.0) Red Cell Distribution Width 17.3 % (11.6-14.8) Platelet Count 262 K/UL (150-450) Mean Platelet Volume 7.4 FL (6.5-10.1) Neutrophils (%) (Auto) 78.7 % (45.0-75.0) Lymphocytes (%) (Auto) 11.4 % (20.0-45.0) Monocytes (%) (Auto) 7.9 % (1.0-10.0) Eosinophils (%) (Auto) 1.3 % (0.0-3.0) Basophils (%) (Auto) 0.7 % (0.0-2.0) Differential Total Cells Counted 100 Neutrophils % (Manual) 77 % (45-75) Lymphocytes % (Manual) 16 % (20-45) Monocytes % (Manual) 5 % (1-10) Eosinophils % (Manual) 2 % (0-3) Basophils % (Manual) 0 % (0-2) Band Neutrophils 0 % (0-8) Other Cell Type Pathologist review Platelet Estimate Adequate Platelet Morphology Normal Polychromasia 1+ Hypochromasia 1+ Anisocytosis 1+ Reticulocyte Count 1.9 % (0.5-2.0) Sodium Level 143 MMOL/L (136-145) Potassium Level 3.2 MMOL/L (3.5-5.1) Chloride Level 108 MMOL/L (98-107) Carbon Dioxide Level 21 MMOL/L (21-32) Anion Gap 14 mmol/L (5-15) Blood Urea Nitrogen 12 mg/dL (7-18) Creatinine 0.9 MG/DL (0.55-1.30) Estimat Glomerular Filtration Rate > 60 mL/min (>60) Glucose Level 78 MG/DL (74-106) Calcium Level 8.4 MG/DL (8.5-10.1) Iron Level 25 ug/dL (50-175) Total Iron Binding Capacity 332 ug/dL (250-450) Percent Iron Saturation 8 % (15-50) Unsaturated Iron Binding 307 ug/dL (112-346) Ferritin 29 NG/ML (8-388) Vitamin B12 Level 310 PG/ML (193-986) Thyroid Stimulating Hormone (TSH) 0.637 uiU/mL (0.358-3.740) Test 03/04/20 05:22 03/04/20 11:26 03/04/20 15:30 03/04/20 21:16 POC Whole Blood Glucose 88 MG/DL (74-106) 88 MG/DL (74-106) 92 MG/DL (74-106) Troponin I 0.150 ng/mL (0.000-0.056) Test 03/05/20 05:34 03/05/20 06:13 03/05/20 11:21 03/05/20 17:26 POC Whole Blood Glucose 96 MG/DL (74-106) 136 MG/DL (74-106) 204 MG/DL (74-106) White Blood Count 8.4 K/UL (4.8-10.8) Red Blood Count 3.81 M/UL (4.20-5.40) Hemoglobin 10.0 G/DL (12.0-16.0) Hematocrit 32.9 % (37.0-47.0) Mean Corpuscular Volume 86 FL (80-99) Mean Corpuscular Hemoglobin 26.3 PG (27.0-31.0) Mean Corpuscular Hemoglobin Concent 30.5 G/DL (32.0-36.0) Red Cell Distribution Width 16.9 % (11.6-14.8) Platelet Count 264 K/UL (150-450) Mean Platelet Volume 7.0 FL (6.5-10.1) Neutrophils (%) (Auto) 74.7 % (45.0-75.0) Lymphocytes (%) (Auto) 12.7 % (20.0-45.0) Monocytes (%) (Auto) 7.7 % (1.0-10.0) Eosinophils (%) (Auto) 3.7 % (0.0-3.0) Basophils (%) (Auto) 1.3 % (0.0-2.0) Sodium Level 143 MMOL/L (136-145) Potassium Level 3.3 MMOL/L (3.5-5.1) Chloride Level 109 MMOL/L (98-107) Carbon Dioxide Level 24 MMOL/L (21-32) Anion Gap 10 mmol/L (5-15) Blood Urea Nitrogen 9 mg/dL (7-18) Creatinine 0.8 MG/DL (0.55-1.30) Estimat Glomerular Filtration Rate > 60 mL/min (>60) Glucose Level 101 MG/DL (74-106) Calcium Level 8.4 MG/DL (8.5-10.1) Test 03/05/20 21:14 03/06/20 01:56 03/06/20 04:38 03/06/20 05:49 POC Whole Blood Glucose 217 MG/DL (74-106) 122 MG/DL (74-106) Vancomycin Level Trough 8.4 ug/mL (5.0-12.0) White Blood Count 8.0 K/UL (4.8-10.8) Red Blood Count 3.79 M/UL (4.20-5.40) Hemoglobin 9.8 G/DL (12.0-16.0) Hematocrit 32.7 % (37.0-47.0) Mean Corpuscular Volume 86 FL (80-99) Mean Corpuscular Hemoglobin 25.9 PG (27.0-31.0) Mean Corpuscular Hemoglobin Concent 30.0 G/DL (32.0-36.0) Red Cell Distribution Width 17.2 % (11.6-14.8) Platelet Count 257 K/UL (150-450) Mean Platelet Volume 7.2 FL (6.5-10.1) Neutrophils (%) (Auto) 66.7 % (45.0-75.0) Lymphocytes (%) (Auto) 17.2 % (20.0-45.0) Monocytes (%) (Auto) 10.1 % (1.0-10.0) Eosinophils (%) (Auto) 5.3 % (0.0-3.0) Basophils (%) (Auto) 0.7 % (0.0-2.0) Sodium Level 143 MMOL/L (136-145) Potassium Level 3.1 MMOL/L (3.5-5.1) Chloride Level 106 MMOL/L (98-107) Carbon Dioxide Level 26 MMOL/L (21-32) Anion Gap 11 mmol/L (5-15) Blood Urea Nitrogen 9 mg/dL (7-18) Creatinine 0.8 MG/DL (0.55-1.30) Estimat Glomerular Filtration Rate > 60 mL/min (>60) Glucose Level 105 MG/DL (74-106) Calcium Level 8.1 MG/DL (8.5-10.1) Height (Feet): 5 Height (Inches): 2.00 Weight (Pounds): 100 Tobin Willoughby MD Mar 06, 2020 07:03
--- NOTE | 2020-03-06 07:25 | NUR ---
HAND-OFF: Report given to SOURAV Donald. Patient sleeping, no distress noted.
[2020-03-06] MEDS ORDERED: LORazepam 0.5mg tab ORAL PRN (07:30)
[2020-03-06] MEDS ORDERED: cloNIDine 0.2mg Tab ORAL PRN (07:30)
--- NOTE | 2020-03-06 07:30 | NUR ---
NURSE NOTES: Patient is in bed asleep. Stable. Breathing is even and unlabored. No visible signs of distress. Patient is high fowlers with call light within reach. Brakes engaged. Bed alarm on. Will continue to monitor.
[2020-03-06 08:00] VITALS: BP 155/58
--- NOTE | 2020-03-06 08:12 | General Progress Note ---
Assessment/Plan Problem List: (1) HTN (hypertension) ICD Codes: I10 - Essential (primary) hypertension SNOMED: 99545167 (2) Diabetes ICD Codes: E11.9 - Type 2 diabetes mellitus without complications SNOMED: 89864460 (3) CHF exacerbation ICD Codes: I50.9 - Heart failure, unspecified SNOMED: 406754211, 15326064398116 (4) Anemia ICD Codes: D64.9 - Anemia, unspecified SNOMED: 606355072 Qualifiers: Qualified Codes: D64.9 - Anemia, unspecified (5) Hypoglycemia ICD Codes: E16.2 - Hypoglycemia, unspecified SNOMED: 310081822 Status: stable, progressing Assessment/Plan: pt diet bp bs control endo eval cbc bmp am dc w hh if clear Subjective Constitutional: Reports: weakness Allergies: Coded Allergies: No Known Allergies (Unverified , 01/09/20) All Systems: reviewed and negative except above Subjective sleepy calm Objective Last 24 Hour Vital Signs Date Time Temp Pulse Resp B/P (MAP) Pulse Ox O2 Delivery O2 Flow Rate FiO2 03/06/20 08:06 Room Air 03/06/20 06:20 150/70 03/06/20 05:40 98.1 64 16 150/70 (96) 99 03/06/20 04:00 98.6 61 21 155/67 (96) 99 03/06/20 00:00 98.5 60 18 175/66 (102) 98 03/05/20 23:20 175/66 03/05/20 22:20 68 157/71 03/05/20 21:00 Room Air 03/05/20 20:00 98.5 61 18 157/71 (99) 98 03/05/20 17:28 141/64 03/05/20 16:00 97.5 62 18 141/64 (89) 97 03/05/20 16:00 72 03/05/20 12:12 169/67 03/05/20 12:00 97.7 85 20 169/67 (101) 96 03/05/20 12:00 62 03/05/20 09:00 Room Air 03/05/20 08:52 65 160/71 Intake and Output 03/05/20 03/06/20 19:00 07:00 Intake Total 120 ml 300 ml Balance 120 ml 300 ml Intake Oral 120 ml 120 ml IV Total 180 ml # Voids 2 5 Laboratory Tests 03/05/20 11:21: POC Whole Blood Glucose 136H 03/05/20 17:26: POC Whole Blood Glucose 204H 03/05/20 21:14: POC Whole Blood Glucose 217H 03/06/20 01:56: Vancomycin Level Trough 8.4 03/06/20 04:38: White Blood Count 8.0, Red Blood Count 3.79L, Hemoglobin 9.8L, Hematocrit 32.7L , Mean Corpuscular Volume 86, Mean Corpuscular Hemoglobin 25.9L, Mean Corpuscular Hemoglobin Concent 30.0L, Red Cell Distribution Width 17.2H, Platelet Count 257, Mean Platelet Volume 7.2, Neutrophils (%) (Auto) 66.7, Lymphocytes (%) (Auto) 17.2L, Monocytes (%) (Auto) 10.1H, Eosinophils (%) (Auto ) 5.3H, Basophils (%) (Auto) 0.7, Sodium Level 143, Potassium Level 3.1L, Chloride Level 106, Carbon Dioxide Level 26, Anion Gap 11, Blood Urea Nitrogen 9 , Creatinine 0.8, Estimat Glomerular Filtration Rate > 60, Glucose Level 105, Calcium Level 8.1L 03/06/20 05:49: POC Whole Blood Glucose 122H Height (Feet): 5 Height (Inches): 2.00 Weight (Pounds): 100 General Appearance: lethargic EENT: normal ENT inspection Neck: normal alignment Cardiovascular: normal peripheral pulses, normal rate, regular rhythm Respiratory/Chest: chest wall non-tender, lungs clear, normal breath sounds Abdomen: normal bowel sounds, non tender, soft Extremities: normal inspection Edema: no edema noted Arm (L), no edema noted Arm (R), no edema noted Leg (L), no edema noted Leg (R), no edema noted Pedal (L), no edema noted Pedal (R), no edema noted Generalized Neurologic: motor weakness Skin: normal pigmentation, warm/dry Chong Rodriguez DO Mar 06, 2020 08:12
[2020-03-06 08:34] VITALS: BP 155/58
[2020-03-06] MEDS: Lactulose 10gm/15ml UDC ORAL SCH ×2 (08:34→13:00)
--- NOTE | 2020-03-06 08:54 | Surgery Progress Note ---
Surgery Progress Note Subjective Additional Comments no acute events comfortable wanted to leave AMA labs okay exam stable Objective Last 24 Hour Vital Signs Date Time Temp Pulse Resp B/P (MAP) Pulse Ox O2 Delivery O2 Flow Rate FiO2 03/06/20 08:34 63 155/58 03/06/20 08:06 Room Air 03/06/20 08:00 98.7 63 18 155/58 (90) 97 03/06/20 06:20 150/70 03/06/20 05:40 98.1 64 16 150/70 (96) 99 03/06/20 04:00 98.6 61 21 155/67 (96) 99 03/06/20 00:00 98.5 60 18 175/66 (102) 98 03/05/20 23:20 175/66 03/05/20 22:20 68 157/71 03/05/20 21:00 Room Air 03/05/20 20:00 98.5 61 18 157/71 (99) 98 03/05/20 17:28 141/64 03/05/20 16:00 97.5 62 18 141/64 (89) 97 03/05/20 16:00 72 03/05/20 12:12 169/67 03/05/20 12:00 97.7 85 20 169/67 (101) 96 03/05/20 12:00 62 03/05/20 09:00 Room Air I&O Intake and Output 03/05/20 03/06/20 19:00 07:00 Intake Total 120 ml 300 ml Balance 120 ml 300 ml Intake Oral 120 ml 120 ml IV Total 180 ml # Voids 2 5 Dressing: other Wound: other Drains: other Cardiovascular: RSR Respiratory: decreased breath sounds Abdomen: soft, non-tender, present bowel sounds Extremities: no tenderness, no cyanosis Laboratory Tests Test 03/05/20 11:21 03/05/20 17:26 03/05/20 21:14 03/06/20 01:56 POC Whole Blood Glucose 136 MG/DL (74-106) H 204 MG/DL (74-106) H 217 MG/DL (74-106) H Vancomycin Level Trough 8.4 ug/mL (5.0-12.0) Test 03/06/20 04:38 03/06/20 05:49 White Blood Count 8.0 K/UL (4.8-10.8) Red Blood Count 3.79 M/UL (4.20-5.40) L Hemoglobin 9.8 G/DL (12.0-16.0) L Hematocrit 32.7 % (37.0-47.0) L Mean Corpuscular Volume 86 FL (80-99) Mean Corpuscular Hemoglobin 25.9 PG (27.0-31.0) L Mean Corpuscular Hemoglobin Concent 30.0 G/DL (32.0-36.0) L Red Cell Distribution Width 17.2 % (11.6-14.8) H Platelet Count 257 K/UL (150-450) Mean Platelet Volume 7.2 FL (6.5-10.1) Neutrophils (%) (Auto) 66.7 % (45.0-75.0) Lymphocytes (%) (Auto) 17.2 % (20.0-45.0) L Monocytes (%) (Auto) 10.1 % (1.0-10.0) H Eosinophils (%) (Auto) 5.3 % (0.0-3.0) H Basophils (%) (Auto) 0.7 % (0.0-2.0) Sodium Level 143 MMOL/L (136-145) Potassium Level 3.1 MMOL/L (3.5-5.1) L Chloride Level 106 MMOL/L (98-107) Carbon Dioxide Level 26 MMOL/L (21-32) Anion Gap 11 mmol/L (5-15) Blood Urea Nitrogen 9 mg/dL (7-18) Creatinine 0.8 MG/DL (0.55-1.30) Estimat Glomerular Filtration Rate > 60 mL/min (>60) Glucose Level 105 MG/DL (74-106) Calcium Level 8.1 MG/DL (8.5-10.1) L POC Whole Blood Glucose 122 MG/DL (74-106) H Plan Problems: (1) Pneumonia Assessment & Plan: abx as per ID reviewed Lungs: There is mild pulmonary edema. Faint airspace opacities within the upper lobes likely residual from prior multifocal infectious process. Pleural space: No evidence of pneumothorax. Probable small bilateral pleural effusions. Heart: Mild cardiac megaly. Cardiac pacer hardware again seen with leads in the right atrium and right ventricle. Mediastinum: No mediastinal widening or shift. Bones/joints: No acute osseous abnormality. Sternotomy wires are intact. IMPRESSION: Mild pulmonary edema and probable small bilateral pleural effusions. Findings likely associated with congestive heart failure or hypervolemia. Mild residual upper lobe airspace opacities from prior pneumonia. (2) Anemia Assessment & Plan: prbc transfusion heme input noted exam stable no active bleeding will monitor trend labs mvi DAILY ESTIMATED NEEDS: Needs based on DM, wound/ 48kg 25-30 kcals/kg 0763-3310 total kcals 1.25-1.5 g protein/kg 60-72 g total protein 25-30 mL/kg 8118-1838 total fluid mLs NUTRITION DIAGNOSIS: Altered nutrition related lab values R/T h/o diabetes as evidence by admitted w/ c/o hypoglycemia (BG 31), now improved. CURRENT DIET:LOW NA, soft easy chew PO DIET RECOMMENDATIONS: Maintain LOW NA/ texture as tolerated ADDITIONAL RECOMMENDATIONS: * Calibrated bedscale wt * Monitor BGs, need for carb control diet * Rec added D5 w/ poor PO to prevent hypoglycemia * Snacks TID in b/w meals * F/up w/ WC eval- add MVI x 1 + Vit C 250mg QD for now * Monitor lytes, replete as needed (low K) (3) Diabetes (4) HTN (hypertension) (5) CHF exacerbation (6) Hypoglycemia (7) Deep tissue injury Assessment & Plan: Pt presented on admission with Pressure injury Sacrum,R and L Buttocks. Base of woud is purple with surrounding maroon borders without induration or fluctuance. At L buttocks base of wound is maroon without induration or fluctuance. Non-blanching erythema periwound . Pt denied tenderness when affected area palpated. Pt educated on wound prevention. Encouraged to frequently turn while in bed . Pt verbalized feeling weak. Pt has Purewick but also requests bedpan when needed. Both heels are soft but both heels are easily blanchable. Tx.Plan: Apply Moisture Barrier Paste to buttocks. Cover with Optifoam Drsg. Change every 3 days and prn. Apply Cavilon Skin Barrier to both heels. Cover each heel with Optifoam drsgs. Changee very 7 days and prn. Reposition at least every 2hours or as tolerated. Off-load heels with Pillow. Dilip Barbosa Mar 06, 2020 08:54
[2020-03-06] MEDS ORDERED: Docusate 100mg cap ORAL SCH (09:00)
[2020-03-06] MEDS ORDERED: Ascorbic Acid 500mg tab ORAL SCH (09:00)
--- NOTE | 2020-03-06 09:29 | NUR ---
*-*DISCHARGE PLANNING*-* PATIENT HAS BEEN REFERRED TO: [facility] P: [phone] ANAMIKA JOAQUIN P:[phone] KEVIL P: [phone] [facility] P:[phone] [facility] P: [phone]
--- NOTE | 2020-03-06 09:30 | NUR ---
NURSE NOTES: Patient is cursing and yelling. Constant redirection needed. Patient made aware of dc plan. Awaiting return call from next of kin Ariane. All safety measures provided. WIll continue to monitor.
--- NOTE | 2020-03-06 10:02 | NUR ---
NURSE NOTES: RN notified Ariane Quigley regarding discharge.
--- NOTE | 2020-03-06 10:27 | NUR ---
ST NOTE SWALLOW STATUS Patient seen at bedside on room air. Per RN, Patient given Ativan approx 40 minutes ago, Patient noted to be slightly lethargic upon arrival. Patient is on room air, VSS for duration of session. Patient is primarily Tajik speaking. RN notified ST about discharge planning. Current diet being Mechanical soft and nectar thick liquids. Per RN Patient safely swallowed medications and no overt s/s of aspiration noted during breakfast in AM. Given Patient is being discharged on thickened liquids, planned to educate Patient on thickened liquids and aspiration precautions/risks to minimize risk of aspiration PNA s/p discharge. Patient was administered PO trials of thin liquids resulting in no overt s/s of aspiration. Adequate labial seal noted, timely a/p transit to BOT. Laryngeal elevation present upon palpation and vocal quality remained clear. Patient ok to be given thin liquids, continue current diet of mechanical soft. Patient educated on aspiration precautions and risks. No further TELEHEALTH DIRECTOR intervention indicated at this time as Patient is on preferred and safe diet consistency. Thank you for this referral! TELEHEALTH DIRECTOR [phone]
--- NOTE | 2020-03-06 10:59 | NUR ---
*-*DISCHARGE PLANNING*-* PATIENT HAS BEEN REFERRED TO: [facility] P: [phone] S/W VIVI, NOT ACCEPTING NEW PATIENTS ANAMIKA CALVETRLOVE P:[phone] S/W MITCHELL, ONLY ACCEPTING COVID POSITIVE PATIENTS COMPTCHE P: [phone] S/W CLEMENT, WILL CALL BACK AFTER REVIEW [facility] P:[phone] S/W JALEEL/ NO NEW PATIENTS [facility] THIS TIME [facility] P: [phone] S/W DESERE, ADMISSIONS NOT AVAILABLE, CALL BACK
[2020-03-06] MEDS ORDERED: Vancomycin 500 MG in D5W 110 ML IVPB SCH (11:00)
--- NOTE | 2020-03-06 11:19 | Infectious Diseases Prog Note ---
Assessment/Plan Assessment: Gram positive bacteremia- contaminant -03/03 Bcx 3/4 S. caprae; 03/04 bcx NTD 2d echo: no vegetations Acute anemia Acute encephalopathy 2ry to hypoglycemia Pulmonary edema -CXR: Mild pulmonary edema and probable small bilateral pleural effusions. Findings likely associated with congestive heart failure or hypervolemia. Mild residual upper lobe airspace opacities from prior pneumonia. -03/03 Rapid COVID neg -v. duplex: Negative for evidence of lower extremity deep venous thrombosis bilaterally Afebrile- Tm 99.7 No leukocytosis HTN Dm2 s/p PPM CHF board care resident Plan: -On IV Vancomycin #3 -ok to dc back to SNF off antibiotics -03/03 sp Levaquin x1 -f/u cx -Monitor CBC/CMP, temperatures -GI f/u -aspiration precautions -f/u repeat Bcx x2 Thank you for this consultation. Will continue to follow along with you. Discussed with RN. Subjective Allergies: Coded Allergies: No Known Allergies (Unverified , 01/09/20) afebrile at RA repeat Bcx NTD no leukocytosis discahrge planning Objective Last 24 Hour Vital Signs Date Time Temp Pulse Resp B/P (MAP) Pulse Ox O2 Delivery O2 Flow Rate FiO2 03/06/20 08:34 63 155/58 03/06/20 08:06 Room Air 03/06/20 08:00 98.7 63 18 155/58 (90) 97 03/06/20 06:20 150/70 03/06/20 05:40 98.1 64 16 150/70 (96) 99 03/06/20 04:00 98.6 61 21 155/67 (96) 99 03/06/20 00:00 98.5 60 18 175/66 (102) 98 03/05/20 23:20 175/66 03/05/20 22:20 68 157/71 03/05/20 21:00 Room Air 03/05/20 20:00 98.5 61 18 157/71 (99) 98 03/05/20 17:28 141/64 03/05/20 16:00 97.5 62 18 141/64 (89) 97 03/05/20 16:00 72 03/05/20 12:12 169/67 03/05/20 12:00 97.7 85 20 169/67 (101) 96 03/05/20 12:00 62 Height (Feet): 5 Height (Inches): 2.00 Weight (Pounds): 100 GENERAL: Sleeping in bed, in the ER gurney, not talking much. Lethargic, sleepy. HEENT: Normocephalic, atraumatic. NECK: Trachea midline. CARDIOVASCULAR: No peripheral edema. LUNGS: Breathing comfortably on room air. ABDOMEN: No apparent wounds. EXTREMITIES: Show no cyanosis or clubbing. Microbiology Date/Time Source Procedure Growth Status 03/04/20 14:15 Blood Blood Culture - Preliminary NO GROWTH AFTER 24 HOURS Resulted 03/04/20 14:05 Blood Blood Culture - Preliminary NO GROWTH AFTER 24 HOURS Resulted Laboratory Tests Test 03/05/20 11:21 03/05/20 17:26 03/05/20 21:14 03/06/20 01:56 POC Whole Blood Glucose 136 MG/DL (74-106) H 204 MG/DL (74-106) H 217 MG/DL (74-106) H Vancomycin Level Trough 8.4 ug/mL (5.0-12.0) Test 03/06/20 04:38 03/06/20 05:49 White Blood Count 8.0 K/UL (4.8-10.8) Red Blood Count 3.79 M/UL (4.20-5.40) L Hemoglobin 9.8 G/DL (12.0-16.0) L Hematocrit 32.7 % (37.0-47.0) L Mean Corpuscular Volume 86 FL (80-99) Mean Corpuscular Hemoglobin 25.9 PG (27.0-31.0) L Mean Corpuscular Hemoglobin Concent 30.0 G/DL (32.0-36.0) L Red Cell Distribution Width 17.2 % (11.6-14.8) H Platelet Count 257 K/UL (150-450) Mean Platelet Volume 7.2 FL (6.5-10.1) Neutrophils (%) (Auto) 66.7 % (45.0-75.0) Lymphocytes (%) (Auto) 17.2 % (20.0-45.0) L Monocytes (%) (Auto) 10.1 % (1.0-10.0) H Eosinophils (%) (Auto) 5.3 % (0.0-3.0) H Basophils (%) (Auto) 0.7 % (0.0-2.0) Sodium Level 143 MMOL/L (136-145) Potassium Level 3.1 MMOL/L (3.5-5.1) L Chloride Level 106 MMOL/L (98-107) Carbon Dioxide Level 26 MMOL/L (21-32) Anion Gap 11 mmol/L (5-15) Blood Urea Nitrogen 9 mg/dL (7-18) Creatinine 0.8 MG/DL (0.55-1.30) Estimat Glomerular Filtration Rate > 60 mL/min (>60) Glucose Level 105 MG/DL (74-106) Calcium Level 8.1 MG/DL (8.5-10.1) L POC Whole Blood Glucose 122 MG/DL (74-106) H Current Medications Medications (Trade) Dose Ordered Sig/Breana Route PRN Reason Start Time Stop Time Status Last Admin Dose Admin Amlodipine Besylate (Norvasc) 5 mg Q12HR ORAL 03/06/20 09:00 04/03/20 09:39 03/06/20 08:34 Ascorbic Acid (Vitamin C) 250 mg DAILY ORAL 03/06/20 09:00 04/04/20 08:59 03/06/20 08:35 Clonidine HCl (Catapres Tab) 0.1 mg EVERY 6 HOURS ORAL 03/06/20 12:00 06/01/20 17:59 Clonidine HCl (Catapres tab) 0.2 mg Q2H PRN ORAL SBP>170 03/06/20 07:30 06/02/20 09:29 Dextrose (Dextrose 50%) 25 ml Q30M PRN IV Hypoglycemia 03/06/20 07:30 06/01/20 16:29 Dextrose (Dextrose 50%) 50 ml Q30M PRN IV Hypoglycemia 03/06/20 07:30 06/01/20 16:29 Docusate Sodium (Colace) 100 mg TWICE A DAY ORAL 03/06/20 09:00 04/03/20 11:29 03/06/20 08:35 Insulin Aspart (NovoLOG) BEFORE MEALS AND HS SUBQ 03/06/20 11:30 06/01/20 16:29 Iron Sucrose 100 mg/Sodium Chloride 60 ml @ 240 mls/hr BEDTIME IV 03/06/20 21:00 03/09/20 21:14 Lactulose (Cephulac) 10 gm THREE TIMES A DAY ORAL 03/06/20 09:00 04/04/20 12:59 03/06/20 08:34 Lorazepam (Ativan) 0.5 mg Q6H PRN ORAL For Anxiety 03/06/20 07:30 03/12/20 07:29 03/06/20 09:13 Multivitamins (Multivitamins) 1 tab DAILY ORAL 03/06/20 09:00 04/04/20 08:59 03/06/20 08:35 Pantoprazole (Protonix) 40 mg DAILY ORAL 03/06/20 09:00 04/03/20 08:59 03/06/20 08:35 Polyethylene Glycol (Miralax) 17 gm BEDTIME ORAL 03/06/20 21:00 04/03/20 20:59 Sodium Chloride 1,000 ml @ 60 mls/hr [id number] IV 03/06/20 07:30 04/02/20 16:29 03/06/20 07:30 Vancomycin HCl (Vanco pharmacy to dose) 1 ea DAILY PRN MISC Per rx protocol 03/06/20 09:00 04/03/20 13:29 Vancomycin HCl 500 mg/Dextrose 110 ml @ 110 mls/hr Q8H IVPB 03/06/20 11:00 03/11/20 02:59 Belem Foster M.D. Mar 06, 2020 11:19
--- NOTE | 2020-03-06 11:23 | General Progress Note ---
Assessment/Plan Problem List: (1) CHF exacerbation ICD Codes: I50.9 - Heart failure, unspecified SNOMED: 694758654, [id number] (2) HTN (hypertension) ICD Codes: I10 - Essential (primary) hypertension SNOMED: 07045326 (3) Diabetes ICD Codes: E11.9 - Type 2 diabetes mellitus without complications SNOMED: 29841977 (4) Anemia ICD Codes: D64.9 - Anemia, unspecified SNOMED: 767213872 Qualifiers: Qualified Codes: D64.9 - Anemia, unspecified Status: stable, progressing Assessment/Plan: iv iron fu H&H fu stool ob bowel regimen no family available for consent Subjective ROS Limited/Unobtainable: No Allergies: Coded Allergies: No Known Allergies (Unverified , 01/09/20) Objective Last 24 Hour Vital Signs Date Time Temp Pulse Resp B/P (MAP) Pulse Ox O2 Delivery O2 Flow Rate FiO2 03/06/20 08:34 63 155/58 03/06/20 08:06 Room Air 03/06/20 08:00 98.7 63 18 155/58 (90) 97 03/06/20 06:20 150/70 03/06/20 05:40 98.1 64 16 150/70 (96) 99 03/06/20 04:00 98.6 61 21 155/67 (96) 99 03/06/20 00:00 98.5 60 18 175/66 (102) 98 03/05/20 23:20 175/66 03/05/20 22:20 68 157/71 03/05/20 21:00 Room Air 03/05/20 20:00 98.5 61 18 157/71 (99) 98 03/05/20 17:28 141/64 03/05/20 16:00 97.5 62 18 141/64 (89) 97 03/05/20 16:00 72 03/05/20 12:12 169/67 03/05/20 12:00 97.7 85 20 169/67 (101) 96 03/05/20 12:00 62 Intake and Output 03/05/20 03/06/20 18:59 06:59 Intake Total 120 ml 300 ml Balance 120 ml 300 ml Intake Oral 120 ml 120 ml IV Total 180 ml # Voids 2 5 Laboratory Tests 03/05/20 17:26: POC Whole Blood Glucose 204H 03/05/20 21:14: POC Whole Blood Glucose 217H 03/06/20 01:56: Vancomycin Level Trough 8.4 03/06/20 04:38: White Blood Count 8.0, Red Blood Count 3.79L, Hemoglobin 9.8L, Hematocrit 32.7L , Mean Corpuscular Volume 86, Mean Corpuscular Hemoglobin 25.9L, Mean Corpuscular Hemoglobin Concent 30.0L, Red Cell Distribution Width 17.2H, Platelet Count 257, Mean Platelet Volume 7.2, Neutrophils (%) (Auto) 66.7, Lymphocytes (%) (Auto) 17.2L, Monocytes (%) (Auto) 10.1H, Eosinophils (%) (Auto ) 5.3H, Basophils (%) (Auto) 0.7, Sodium Level 143, Potassium Level 3.1L, Chloride Level 106, Carbon Dioxide Level 26, Anion Gap 11, Blood Urea Nitrogen 9 , Creatinine 0.8, Estimat Glomerular Filtration Rate > 60, Glucose Level 105, Calcium Level 8.1L 03/06/20 05:49: POC Whole Blood Glucose 122H Height (Feet): 5 Height (Inches): 2.00 Weight (Pounds): 100 General Appearance: lethargic EENT: normal ENT inspection Neck: supple Cardiovascular: normal rate Respiratory/Chest: decreased breath sounds Abdomen: normal bowel sounds, non tender, soft Extremities: non-tender Jarek Mcmullen MD Mar 06, 2020 11:23
[2020-03-06] MEDS ORDERED: NovoLOG Insulin Flexpen SUBQ SCH (11:30)
--- NOTE | 2020-03-06 12:46 | Cardiac Electrophysiology PN ---
Assessment/Plan Assessment/Plan 1. Status post dual-chamber left-sided pacemaker. Pacemaker interrogation pending 2. Altered mental status, likely due to hypoglycemia as the blood glucose was only 31, but improved. 3. Accelerated hypertension in the 190s. On amlodipine 5 mg b.i.d., clonidine 0.1 mg every 6 hours as well as p.r.n. clonidine 4. Status post CABG?. 5. Dementia. 6. Severe anemia. S/P blood transfusion. Fu by Dr. Willoughby as well as Dr. Mcmullen . Subjective Subjective Was Agitated earlier. Awaiting placement Objective Last 24 Hour Vital Signs Date Time Temp Pulse Resp B/P (MAP) Pulse Ox O2 Delivery O2 Flow Rate FiO2 03/06/20 08:34 63 155/58 03/06/20 08:06 Room Air 03/06/20 08:00 98.7 63 18 155/58 (90) 97 03/06/20 06:20 150/70 03/06/20 05:40 98.1 64 16 150/70 (96) 99 03/06/20 04:00 98.6 61 21 155/67 (96) 99 03/06/20 00:00 98.5 60 18 175/66 (102) 98 03/05/20 23:20 175/66 03/05/20 22:20 68 157/71 03/05/20 21:00 Room Air 03/05/20 20:00 98.5 61 18 157/71 (99) 98 03/05/20 17:28 141/64 03/05/20 16:00 97.5 62 18 141/64 (89) 97 03/05/20 16:00 72 Intake and Output 03/05/20 03/06/20 19:00 07:00 Intake Total 120 ml 300 ml Balance 120 ml 300 ml Intake Oral 120 ml 120 ml IV Total 180 ml # Voids 2 5 Laboratory Tests Test 03/05/20 17:26 03/05/20 21:14 03/06/20 01:56 03/06/20 04:38 POC Whole Blood Glucose 204 MG/DL (74-106) H 217 MG/DL (74-106) H Vancomycin Level Trough 8.4 ug/mL (5.0-12.0) White Blood Count 8.0 K/UL (4.8-10.8) Red Blood Count 3.79 M/UL (4.20-5.40) L Hemoglobin 9.8 G/DL (12.0-16.0) L Hematocrit 32.7 % (37.0-47.0) L Mean Corpuscular Volume 86 FL (80-99) Mean Corpuscular Hemoglobin 25.9 PG (27.0-31.0) L Mean Corpuscular Hemoglobin Concent 30.0 G/DL (32.0-36.0) L Red Cell Distribution Width 17.2 % (11.6-14.8) H Platelet Count 257 K/UL (150-450) Mean Platelet Volume 7.2 FL (6.5-10.1) Neutrophils (%) (Auto) 66.7 % (45.0-75.0) Lymphocytes (%) (Auto) 17.2 % (20.0-45.0) L Monocytes (%) (Auto) 10.1 % (1.0-10.0) H Eosinophils (%) (Auto) 5.3 % (0.0-3.0) H Basophils (%) (Auto) 0.7 % (0.0-2.0) Sodium Level 143 MMOL/L (136-145) Potassium Level 3.1 MMOL/L (3.5-5.1) L Chloride Level 106 MMOL/L (98-107) Carbon Dioxide Level 26 MMOL/L (21-32) Anion Gap 11 mmol/L (5-15) Blood Urea Nitrogen 9 mg/dL (7-18) Creatinine 0.8 MG/DL (0.55-1.30) Estimat Glomerular Filtration Rate > 60 mL/min (>60) Glucose Level 105 MG/DL (74-106) Calcium Level 8.1 MG/DL (8.5-10.1) L Test 03/06/20 05:49 POC Whole Blood Glucose 122 MG/DL (74-106) H Microbiology Date/Time Source Procedure Growth Status 03/04/20 14:15 Blood Blood Culture - Preliminary NO GROWTH AFTER 24 HOURS Resulted 03/04/20 14:05 Blood Blood Culture - Preliminary NO GROWTH AFTER 24 HOURS Resulted Objective NECK: No JVD. LUNGS: Clear. CARDIOVASCULAR: Sternotomy scar is intact. Left-sided pacemaker is in place. ABDOMEN: Soft. EXTREMITIES: No pitting edema. Dylon Frederick MD Mar 06, 2020 12:46
--- NOTE | 2020-03-06 14:44 | NUR ---
NURSE NOTES: Patient discharged home as ordered. Stable. Denies pain or SOB. Patient and friend Ariane were given thorough discharge instructions by RN, verbalized understanding. Patient has all belongings. Patient's friend verbalized that she will call Dr. Rodriguez and [facility] as instructed by RN. Skin is c/d/i. IV removed. Patient has front wheel walker and was given instruction on use by physical therapist. Patient assisted outside by staff without incident.
--- NOTE | 2020-03-06 14:53 | NUR ---
*-*DISCHARGE PLANNING*-* PATIENT HAS BEEN ACCEPTED WITH: [facility] P: [phone] S/W MARYCHUY, WILL SERVICE PATIENT UPON DISCHARGE.
--- NOTE | 2020-03-06 16:45 | Progress Note ---
DATE: 03/06/2020 SUBJECTIVE: This is a 70-year-old female patient. She is a female patient who is 70 years old. She continues to be depressed, confused. She is mood labile. She has got no plans for her own self-care. She has got feelings of hopelessness, helplessness, but she basically has a history of pneumonia. She is very . Has lot of psychomotor agitation as well. She also has anemia, diabetes, hypertension, congestive heart failure exacerbation, hypoglycemia. MENTAL STATUS EXAMINATION: This is a 70-year-old female patient. Appearance is disheveled. Attitude, irritable and agitated. Affect, guarded and restricted. Intellect poor. Mood, depressed and anxious. Motor activity, psychomotor agitation. Attention span is poor. Orientation x2. Speech is low volume, slurred. Thought process, disorganized and illogical. Insight and judgment is poor. DIAGNOSIS: Major depressive disorder, severe, recurrent, rule out generalized anxiety disorder. PLAN: Plan for this patient is to treat her with a medication regimen consisting of Ativan 1 mg every 6 hours p.r.n. anxiety, agitation. Twenty minutes of cognitive behavioral therapy to help her identify automatic negative thoughts, help her convert negative thoughts to more positive thoughts to reduce depression, anxiety, mood lability, but overall she appears to be psychiatrically cleared for discharge. Tammi Oconnor M.D. DR: ALBERTO JOB#: [id number] CC:
[2020-03-06] MEDS ORDERED: Iron Sucrose 100 MG in NS 55 ML IV SCH (21:00)
[2020-03-06] MEDS ORDERED: Miralax 17gm pkt ORAL SCH (21:00)
--- NOTE | 2020-03-08 12:48 | Discharge Summary ---
Discharge Summary Discharge Summary _ DATE OF ADMISSION: 03/03/2020 DATE OF DISCHARGE: 03/06/2020 DISCHARGED BY: Dr. Dr Rodriguez REASON FOR ADMISSION: 70 years old female resident [facility], past medical history of diabetes mellitus, hypertension, pacemaker, presented with altered mental status. Blood sugar in the field was 31. Patient received D10 with improvement in blood sugar and improvement in mentation. Patient was unclear what medication she was taking. She denied fever and chills. She denied cough. She denied chest pain or shortness of breath. Upon evaluation vital signs were stable. Laboratory work-up revealed no leukocytosis hemoglobin 6.8 hematocrit 23.4 platelet count 348. Potassium 3.2. Stable other electrolytes. BUN 18, creatinine 1.0. Glucose 157. Able LFT. Lactic acid 1.3. Albumin 3.4. Urinalysis revealed +2 protein no evidence of urinary tract infection. EKG revealed a a flutter with some PVC. Chest x-ray revealed pacemaker mild pulmonary edema and probable small bilateral pleural effusion. Findings are most likely associated with congestive heart failure or hypervolemia. In emergency room patient pancultured received empiric antibiotics. Patient typed and crossed for pending transfusion potassium was replaced patient admitted for further management CONSULTANTS: burr machine operator Dr. Markham ID specialist Dr. Foster GI specialist Dr. Mcmullen tongue and quarter stitcher Dr. Li ross carrier driver/oncologist Dr. Willoughby surgery Dr. Barbosa psychiatrist Dr. Oconnor [facility] COURSE: Patient admitted and initially started on dextrose infusion. Blood sugar was closely monitored without insulin coverage. Hypoglycemia protocol was in order. Blood sugar stabilized . Dextrose infusion was stopped. Diabetic medications were all on hold as per tongue and quarter stitcher recommendation. Venous duplex bilateral lower extremity revealed no evidence of acute DVT. Pulse oximetry remained stable on room air. Pacemaker interrogation revealed normal functioning. Altered mental status was most likely due to hypoglycemia , as the blood sugar was initially only 31, but improved with IV dextrose. Patient noted to have episodes of hypertensive urgency with systolic blood pressure above 190 ( 195/97). Blood pressure was managed as per burr machine operator recommendation with calcium channel mali and clonidine. Additional clonidine was on board as needed for blood pressure spikes. Blood pressure stabilized. Echocardiogram revealed ejection fraction of 40% with mild left ventricular hypertrophy and moderate pleural effusion. Mild to moderate mitral regurgitation. Right ventricular systolic pressure severe pulmonary hypertension. Patient will need outpatient follow-up for management of congestive heart failure. Volumes were closely monitored. Hemoglobin and hematocrit were closely monitored with goal to keep hemoglobin above 7. Patient undergone transfusion of 2 units of packed red blood cells. Anemia work-up revealed evidence of iron deficiency anemia. Patient was on the IV iron. Prior to discharge hemoglobin 9.8, hematocrit 32.7. GI prophylaxis provided . Bowel regimen instituted. Patient will need close monitoring of hemoglobin and hematocrit as outpatient and outpatient stool OB checkup. Blood culture initially revealed Staph Caprae . Patient started on vancomycin. SARS COV 2 by PCR was negative on 03/03 . Repeated blood culture 03/04 were negative. Initial blood positive blood culture were most likely contaminant as per ID specialist. Patient had no leukocytosis , no fevers, no evidence of infection. Echocardiogram revealed no evidence of vegetation. Vancomycin was discontinued. ID specialist cleared patient for discharge to [facility] antibiotics. Patient passed bedside swallow evaluation . Diet texture provided as per speech therapist recommendation with strict aspiration / reflux precaution. Protein supplements provided as per registered dietitian recommendation. Fall precaution maintained. Patient was working with physical therapist. Home health was arranged. Patient was stable for discharge home with home health services to follow. Patient presented on admission with pressure injuries right sacral and left buttock. Wound care provided as per surgeon recommendation . Continue wound care at accepting facility. Psychiatric medication regimen was optimized as per psychiatrist. Cognitive behavioral therapy provided. FINAL DIAGNOSES: Acute encephalopathy due to hypoglycemia-resolved Hypoglycemia- resolved Accelerated hypertension/hypertensive urgency-stabilized Congestive heart failure Status post dual-chamber left-sided pacemaker Severe anemia Dementia Deep tissue injury present on admission Major depressive disorder, severe, recurrent, DISCHARGE MEDICATIONS: See Medication Reconciliation list. DISCHARGE INSTRUCTIONS: Patient was discharged home with home health services. Follow-up with primary care provider in 1 week. I have been assigned to dictate discharge summary for this account. I was not involved in the patient's management. aDrya Cardona NP Mar 08, 2020 12:48
== END 2020-03-06 14:27 | disposition home or self-care (01) | DRG 637 ==
LOC: EDUNIT# 06:14 → EDBD 06:14 → EMR 06:59 → 2E 08:07 → EDBEDREQ 09:00 → EDBEDREQSVC 09:00 → EDBEDREQ 12:34 → 2E 03-05 20:10 → 3E 03-06 04:52
PROC: 30233N1 Transfusion of Nonautologous Red Blood Cells into Peripheral Vein, Percutaneous Approach (ICD-10-PCS; principal; 2020-03-03)
DX: E11.649 Type 2 diabetes mellitus with hypoglycemia without coma (principal); J18.9 Pneumonia, unspecified organism; N39.0 Urinary tract infection, site not specified; I48.92 Unspecified atrial flutter; G93.40 Encephalopathy, unspecified; F33.9 Major depressive disorder, recurrent, unspecified; F33.2 Major depressive disorder, recurrent severe without psychotic features; Z95.0 Presence of cardiac pacemaker; I50.9 Heart failure, unspecified; D63.8 Anemia in other chronic diseases classified elsewhere; I11.0 Hypertensive heart disease with heart failure; I49.3 Ventricular premature depolarization; L89.156 Pressure-induced deep tissue damage of sacral region; L89.326 Pressure-induced deep tissue damage of left buttock; Z98.890 Other specified postprocedural states; D50.9 Iron deficiency anemia, unspecified; I27.20 Pulmonary hypertension, unspecified
CPT/HCPCS: 36415; 71045; 80048; 80053; 80202; 81003; 82607; 82728; 82962; 83540; 83550; 83605; 84443; 84484; 85007; 85025; 85044; 85060; 85610; 85730; 86850; 86900; 86901; 86920; 87040; 87181; 93005; 93306; 93970; 96361; 96365; 96375; 97803; 99285; J1815; J7030; J8499; U0002